=== PATIENT | male | born 1960 | race Caucasian/White ===

== ENCOUNTER 2017-06-12 09:49 | Day surgery (SDC) | payer OTHER ==
--- NOTE | 2017-06-11 13:45 | Pre-op HX & Phy Repo 2 SIG ---
DATE OF ADMISSION: 06/12/2017 PREENDOSCOPY HISTORY AND PHYSICAL REASON FOR EVALUATION: Scheduled for outpatient Larsen continent ileostomy pouch endoscopy on 06/12/2017. HISTORY OF PRESENT ILLNESS: The patient is a 56-year-old male in overall stable health with a malfunctioning Larsen continent ileostomy. The patient has past history of ulcerative colitis including total colectomy and J-pouch subsequently resected with creation of a Larsen continent ileostomy. All the operations will be listed at the end of this dictation. The patient has been having symptoms of bloating, abdominal pain, and increased reflux and whenever he bends over, he has shortness of breath. He had an evaluation where he lives in [place] revealing that his Larsen continent ileostomy pouch extends under the left diaphragm. Extensive pulmonary and cardiac workups have been negative. The patient also states that he must insert his catheter at least 7 to 8 inches to begin draining the pouch. He had been intubating only 3 to 4 times a day feeling that he had good evacuation, but still had bloating and pain. Occasionally, he had a large amount of explosive output through the catheter. He has more recently been intubating 6 times per day, but still has the symptoms of shortness of breath with bending over and increased esophageal reflux. The patient takes Cipro and Flagyl for pouchitis symptoms on an intermittent basis. He is scheduled to undergo pouch endoscopy and pouchogram x-ray. The patient was evaluated in February 2015 for the possibility of ventral incisional hernia and parastomal hernia. At that time, he underwent pouch endoscopy revealing that the distance from the stoma orifice to the tip of the nipple valve was 15 cm which in this patient would be expected to be 9 to 10 cm. Also at that time, he was found to have protuberance of the abdominal wall, but no evidence of incisional hernia. He underwent CT scan of the abdomen and pelvis with oral and IV contrast at that time revealing no evidence of incisional, ventral, or parastomal hernia, however, the Larsen pouch was found to be quite large extending transversely from the stoma in the right lower quadrant into the left lower quadrant and then into the left upper quadrant. The patient has otherwise been stable. PAST MEDICAL HISTORY AND MEDICATIONS: Xarelto 15 mg b.i.d. because of a hypercoagulable state with factor S abnormality, allopurinol. ALLERGIES TO MEDICATIONS: Penicillin. REVIEW OF SYSTEMS: The patient underwent stem cell injections into the pubic mound and parastomal area because of persistent parastomal pain. The patient has had no recent difficulty with deep vein thrombosis, last episode in 2014. The patient states he no longer takes allopurinol. PHYSICAL EXAMINATION: The patient is arriving from out of state and will be examined upon arrival and dictated separately. IMPRESSION: 1. Malfunctioning Larsen continent ileostomy with difficulty with intubation and evacuation. 2. Abdominal distention, pain, and shortness of breath when bending over and increased reflux likely due to over-distended Larsen pouch extending under the left diaphragm from the right lower quadrant. 3. Hypercoagulable state with factor S abnormality, on Xarelto. 4. History of ulcerative colitis. 5. Status post multiple abdominal operations. 1. Total colectomy with ileoanal J-pouch in August 2004 in [place]. 2. Resection of infarcted J-pouch and creation of Barbara ileostomy in August 2004 in [place]. 3. Larsen continent intestinal reservoir continent ileostomy in 2005. 4. Repair of ventral incisional hernia, parastomal hernia, and left inguinal hernia in October 2007. 5. Laparotomy with extensive lysis of adhesions and complex revision of Larsen continent ileostomy with enteroenterostomy and revision of the stoma in depth and repair of right inguinal hernia in 2009. PLAN: The patient will undergo pouch endoscopy which will not require any anesthesia or sedation. This will be followed by Gastrografin pouchogram with retrograde small-bowel series. We will then be able to make decisions. It has two steps to be taken to manage his symptoms. Paulo Spencer M.D. DR: DUNCAN JOB#: [id number] CC:
[~2017-06-12] VITALS: Ht 170.2 cm; Wt 86.6 kg
[~2017-06-12 09:49] MED LIST: ALLOPURINOL300 M1 ORAL; CELEBREX200 MG ORAL; FLAGYL500 MG ORAL; PRANDIN0.5 MG ORAL; VITAMIN B12 INJECT INJ; VITAMIN D5000 UNI1 PO; XARELTO15 MG ORAL
[2017-06-12 10:30] VITALS: BP 133/82
--- NOTE | 2017-06-12 10:37 | Pre-Procedure Note/Attestation ---
Pre-Procedure Note/Attestation Complete Prior to Procedure Planned Procedure: not applicable Procedure Narrative: Larsen continent ileostomy pouch endoscopy Indications for Procedure Pre-Operative Diagnosis: malfunctioning Larsen continent ileostomy Attestation I attest that I discussed the nature of the procedure; its benefits; risks and complications; and alternatives (and the risks and benefits of such alternatives ), prior to the procedure, with the patient (or the patient's legal videotape sales representative). I attest that, if there was a reasonable possibility of needing a blood transfusion, the patient (or the patient's legal videotape sales representative) was given the [facility] standardized written summary, pursuant to the [place] Blood Safety Act ([place] Health and Safety Code # 1645, as amended). I attest that I re-evaluated the patient just prior to the surgery and that there has been no change in the patient's H&P, except as documented below: none ANURADHA SPIVEY Jun 12, 2017 10:37
--- NOTE | 2017-06-12 11:15 | Brief Operative Note ---
Immediate Post Operative Note Operative Note Pre-op Diagnosis: malfunctioning Larsen continent ileostomy Procedure: Larsen pouch endoscopy Post-op Diagnosis: elongated, redundant access segment Post-op Diagnosis: same as pre-op Findings: consistent w/pre-op dx studies Surgeon: renetta Anesthesia: other - none Specimen: none Complications: none Condition: stable Fluids: none Estimated Blood Loss: none Drains: other - 28 olivera to Larsen pouch for pouchogram XRay Implant(s) used?: ANURADHA Garibay Jun 12, 2017 11:15
[2017-06-12 11:20] VITALS: BP 131/82
[2017-06-12 13:00] VITALS: BP 137/84
--- NOTE | 2017-06-12 17:00 | Procedure Note ---
DATE OF PROCEDURE: 05/15/2017 ENDOSCOPY PROCEDURE REPORT ENDOSCOPIST: Paulo Spencer M.D. ANESTHESIA: None. SEDATION: None. TYPE OF ENDOSCOPY: Larsen continent ileostomy pouch endoscopy. PRE-ENDOSCOPY DIAGNOSES: 1. Malfunctioning Larsen continent ileostomy with difficulty with intubation and evacuation. 2. Abdominal distention, pain and shortness of breath and with increased esophageal reflux when bending over likely due to over distended Larsen pouch extending under the left diaphragm from the right lower quadrant. 3. Hypercoagulable state with factor S abnormality, on Xarelto. 4. History of ulcerative colitis. 5. STATUS POST MULTIPLE ABDOMINAL OPERATIONS: 5.1. Total colectomy with ileoanal J-pouch in August 2004 in [place]. 5.2. Resection of infarcted J-pouch and creation of Barbara ileostomy in August 2004 in [place]. 5.3. Larsen continent ileostomy in 2005. 5.4. Repair of ventral incisional hernia, parastomal hernia, and left inguinal hernia in October 2007. 5.5. Laparotomy with extensive lysis of adhesions and complex revision of Larsen continent ileostomy with enteroenterostomy and revision of the stoma in depth and repair of right inguinal hernia in 2009. POST-ENDOSCOPY DIAGNOSES: 1. Malfunctioning Larsen continent ileostomy with difficulty with intubation and evacuation. 2. Abdominal distention, pain and shortness of breath and with increased esophageal reflux when bending over likely due to over distended Larsen pouch extending under the left diaphragm from the right lower quadrant. 3. Hypercoagulable state with factor S abnormality, on Xarelto. 4. Ulcerative colitis. 5. STATUS POST MULTIPLE ABDOMINAL OPERATIONS: 5.1. Total colectomy with ileoanal J-pouch in August 2004 in [place]. 5.2. Resection of infarcted J-pouch and creation of Barbara ileostomy in August 2004 in [place]. 5.3. Larsen continent ileostomy in 2005. 5.4. Repair of ventral incisional hernia, parastomal hernia and left inguinal hernia in October 2007. 5.5. Laparotomy with extensive lysis of adhesions and complex revision of Larsen continent ileostomy with enteroenterostomy and revision of the stoma in depth and repair of right inguinal hernia in 2009. ENDOSCOPY PERFORMED: Larsen continent ileostomy pouch endoscopy. FINDINGS: The distance from the stoma orifice to the tip of the nipple valve was 15 cm, which in this patient should be 7 to 8 cm. The pouch mucosa is completely normal and a retroflexed view revealed a circumferentially well-formed nipple valve. Withdrawal views confirmed the above findings. Initially before the endoscopy, I had difficulty inserting a 28-Niuean Avalos catheter into the pouch to irrigate it clear, but a 26-Niuean Avalos went readily into the pouch. Now, after removing the endoscope, the 28-Niuean Avalos catheter went readily, but needed to go in 25 cm to begin draining. It was secured in place with tape and connected to gravity drainage bag and gauze placed over the stoma. The patient will undergo a Gastrografin pouchogram x-ray following this endoscopy. The patient tolerated the endoscopy well. Paulo Spencer M.D. DR: GERARDO JOB#: [id number] CC:
--- NOTE | 2017-06-13 09:06 | Diagnostic Imaging Report ---
Indication: Abdominal pain, abnormal continent ileostomy drainage Technique: Via pre-existing access catheter, contrast was instilled into continent ileostomy under fluoroscopic supervision. Spot and overhead films were obtained. Total fluoroscopy time 3.9 minutes. Total dose area product 362 dGycm2 Total number of static exposures 31 Comparison: Reference made to CT scan 02/22/2015 Findings: Contrast initially fills a continent ileostomy reservoir in the right mid abdomen. Contrast subsequently refluxes into the distal ileum, and then fills a dilated segment of bowel in the left upper quadrant. From this, contrast refluxes rightward across the midline into more proximal ileal or jejunal loops. The loops into which this refluxes are mildly dilated Postdrainage images demonstrate near complete evacuation of the right lower quadrant ileostomy reservoir. Delayed follow-up images demonstrate continued filling of the ileostomy reservoir, presumably from the contrast in the left upper quadrant Anatomy is similar to that demonstrated on 02/22/2015 CT scan. Impression: Right lower quadrant ileostomy reservoir, as described Left upper quadrant dilated small bowel. This probably represents focal dilatation due to an enteroenterostomy, as surgical shai are seen surrounding this on prior CT. This is connected to the pouch by a short intervening segment of small bowel Images reviewed in person with Dr. Spencer
== END 2017-06-12 13:20 | disposition home or self-care (01) ==
LOC: GAS 09:49
DX: K94.13 Enterostomy malfunction (principal); R14.0 Abdominal distension (gaseous); K21.9 Gastro-esophageal reflux disease without esophagitis; Z79.01 Long term (current) use of anticoagulants; K51.90 Ulcerative colitis, unspecified, without complications; Z90.49 Acquired absence of other specified parts of digestive tract; Z88.0 Allergy status to penicillin
CPT/HCPCS: 44380; 74270; 82962; Q9963

== ENCOUNTER 2017-07-03 09:33 | Inpatient (IN) | payer OTHER ==
--- NOTE | 2017-07-02 16:30 | Pre-op HX & Phy Repo 2 SIG ---
DATE OF ADMISSION: 07/04/2017 HISTORY OF PRESENT ILLNESS: The patient is a 56-year-old male, in overall stable health with a malfunctioning Larsen continent ileostomy, with difficulty with intubation and evacuation of his pouch and with a partially obstructed proximal small bowel loop causing shortness of breath and reflux when bending over. The patient has a past history of ulcerative colitis and in the past has undergone total colectomy with creation of a J-pouch in followed by immediate resection of the J-pouch due to infarction with creation of a Barbara ileostomy, all in 2004. In 2005, he underwent conversion of his malfunctioning conventional ileostomy to a Larsen continent ileostomy. In 2007, he underwent repair of ventral incisional hernia, parastomal hernia, and left inguinal hernia. In 2009, he underwent laparotomy with extensive lysis of adhesions and complex revision of Larsen continent ileostomy valve and stoma in depth and enteroenterostomy, as well as repair of right inguinal hernia. The patient has been having progressive symptoms of bloating abdominal pain, shortness of breath, and reflux whenever he bends over and evaluations seemed to indicate that his continent ileostomy pouch was extremely dilated and extending under the left diaphragm. The patient was evaluated here at [facility] on 06/12/2017 and underwent pouch endoscopy. This revealed that the distance from the stoma orifice to the tip of the nipple valve was 15 cm, which in this patient should be 7 to 8 cm. The pouch mucosa was completely normal and there was a very well-formed nipple valve. On that same day following the endoscopy, the patient underwent a Gastrografin retrograde continent ileostomy pouchogram. This revealed the continent ileostomy in the right and mid lower abdomen with reflux into fairly normal distal ilium. There was further reflux into a very dilated segment of bowel in the left upper quadrant, with further reflux retrograde into more proximal ileal and jejunal loops. This left upper quadrant dilated small-bowel loop represents focal dilatation and is creating the patient's symptoms. The patient scheduled to undergo laparotomy with resection of this abnormal small bowel loop or correction of whatever fixed partial obstruction there is, as well as revision of his Larsen continent ileostomy pouch and stoma to relieve his progressive difficulty with intubation of his pouch. PAST MEDICAL HISTORY: MEDICATIONS: Xarelto 15 mg b.i.d. because of a hypercoagulable state with factor S abnormality. He was advised by his physician that he could stop this 3 days before surgery and then be treated with heparin subcutaneous until resuming oral intake. ALLERGIES TO MEDICATIONS: Penicillin. REVIEW OF SYSTEMS: Inferior vena cava filter for pulmonary emboli in 2003. The patient has had no recent difficulty with deep vein thrombosis. His last episode in 2014. The patient has undergone stem cell injections into the pubic mound and parastomal area because of persistent parastomal pain with some improvement. PHYSICAL EXAMINATION: GENERAL: The patient is well developed and well nourished. [place] is [place] and will be examined upon arrival when examined. On 06/12/2017, exam was as follows. HEENT: Within normal limits. LUNGS: Clear. HEART: Regular rhythm. BREASTS: Without masses. ABDOMEN: soft with a long midline incision scar and multiple other scars. The stoma of the Larsen pouch is low in the right lower quadrant. There is no evidence of abdominal wall hernia. RECTAL: Status post proctectomy. GENITALIA: Within normal limits. EXTREMITIES: Without edema. NEUROLOGIC: Physiologic. IMPRESSION: 1. Malfunctioning Larsen continent ileostomy with difficulty with intubation and evacuation, 2. Chronic progressive partially obstructed small bowel loop in the left upper quadrant causing shortness of breath and reflux with negative cardiopulmonary and gastrointestinal workup. 3. Hypercoagulable state with factor S abnormality, on Xarelto. 4. History of ulcerative colitis. 5. Status post multiple abdominal operations. 5.1. Total colectomy with ileoanal J-pouch in August 2004 in [place]. 5.2. Resection of infarcted J-pouch and creation of Barbara ileostomy in August 2004 in [place]. 5.3. Larsen continent ileostomy in 2005. 5.4. Repair of ventral incisional hernia, parastomal hernia, and left inguinal hernia in October 2007. 5.5. Laparotomy with extensive lysis of adhesions and complex revision of Larsen continent ileostomy with enteroenterostomy and revision of the stoma in depth and revision of the valve with repair of right inguinal hernia in 2009. PLAN: The patient will be admitted and undergo insertion of a dual lumen PICC line, insertion of an indwelling catheter to his Larsen continent ileostomy pouch for continuous drainage and decompression. He will have a bowel prep with concomitant intravenous hydration and will receive subcutaneous heparin and preoperative intravenous antibiotics. I had a full discussion with the patient regarding the nature of his condition, the nature of the planned surgery, indications, alternatives, options, and risks including bleeding, infection, injury to adjacent structures or organs, recurrent difficulties with his pouch or stoma or function of the pouch or stoma, recurrent adhesions leading to potential bowel obstruction, deep vein thrombosis despite prophylaxis, anesthetic reactions, etc. All questions have been answered. He understands and agrees to proceed. Paulo Spencer M.D. DR: ADRIANE JOB#: [id number] CC: INEZ
[~2017-07-03] VITALS: Ht 170.2 cm; Wt 87.5 kg
[2017-07-03 10:00] VITALS: BP 132/81
--- NOTE | 2017-07-03 10:01 | General Progress Note ---
Progress Note Progress Note H&P dictated. No change in exam from 06/12/17 when patient underwent Larsen pouch endoscopy and pouchogram XRay. Full discussion again regarding the surgery including risks; all questions answered; he understands and agrees to proceed. Plan: Dual lumen PIC line Continuous drainage of Larsen pouch continent ileostomy Bowel prep + IV antibiotics Heparin SQ ANURADHA SPIVEY Jul 03, 2017 10:01
[2017-07-03] MEDS ORDERED: Zolpidem 5mg tab ORAL PRN (10:15)
--- NOTE | 2017-07-03 10:50 | Anethesia Preoperative Eval ---
Anesthesia Pre-op PMH/ROS General Date of Evaluation: Jul 03, 2017 Time of Evaluation: 10:43 Anesthesiologist: Jeremi ASA Score: ASA 2 Mallampati Score Class I : Soft palate, uvula, fauces, pillars visible Class II: Soft palate, uvula, fauces visible Class III: Soft palate, base of uvula visible Class IV: Only hard plate visible Mallampati Classification: Class II Surgeon: Johanna Diagnosis: Malfunctioning continent pouch Surgical Procedure: Exploratory laparotomy revision of continent pouch possible bowel resection Anesthesia History: none Family History: no anesthesia problems Allergies: Coded Allergies: PENICILLIN G (Verified Allergy, Mild, 09/07/09) Medications: see eMAR Past Medical History Cardiovascular: Denies: HTN, CAD, MD, valve dz, arrhythmia, other Pulmonary: Denies: asthma, COPD, ANDREW, other Gastrointestinal/Genitourinary: Reports: GERD, other - h/o UC s/p total colectomy; Denies: CRI, ESRD Neurologic/Psychiatric: Reports: depression/anxiety; Denies: dementia, CVA, TIA, other Endocrine: Denies: DM, hypothyroidism, steroids, other HEENT: Denies: cataract (L), cataract (R), glaucoma, [place] (L[place] (R), other Hematology/Immune: Reports: anemia - mild, DVT - h/o DVT and PE IVC filter in place, anticoagulated; Denies: bleeding disorder, other Musculoskeletal/Integumentary: Denies: OA, RA, DJD, DDD, edema, other PMH Narrative: as above PSxH Narrative: Multiple abdominal Sxs for creation and maintenance of continent pouch, hernia repair, IVC filter placement Anesthesia Pre-op Phys. Exam Physician Exam Constitutional: NAD Neurologic: CN 2-12 intact Cardiovascular: no M/R/G Respiratory: CTA Gastrointestinal: S/NT/ND Airway Exam Mallampati Score: Class II MO: full Neck: flexible ROM: full Teeth: intact Dentures: no upper, no lower Anesthesia Pre-op A/P Labs see chart Risk Assessment & Plan Assessment: ASA2 Plan: GA with ETT Pre-Antibiotics Drug: as scheduled JASON STYLES M.D. Jul 03, 2017 10:50
[2017-07-03 11:00] LABS: BASOPHILS % (AUTO) 1.1 % (0.0-2.0); EOSINOPHILS % (AUTO) 4.2 % (0.0-3.0); HEMATOCRIT 39.2 % (42.0-52.0); HEMOGLOBIN 12.5 G/DL (14.2-18.0); LYMPHOCYTES % (AUTO) 20.5 % (20.0-45.0); MEAN CORPUSCULAR VOLUME 77 FL (80-99); MONOCYTES % (AUTO) 10.4 % (1.0-10.0); NEUTROPHILS % (AUTO) 63.8 % (45.0-75.0); PLATELET COUNT 222 K/UL (150-450); RED CELL DISTRIBUTION WIDTH 15.4 % (11.6-14.8); WHITE BLOOD COUNT 4.4 K/UL (4.8-10.8)
[2017-07-03 11:09] LABS: ANION GAP 9 mmol/L (5-15); BLOOD UREA NITROGEN 17 mg/dL (7-18); CALCIUM 9.1 MG/DL (8.5-10.1); CARBON DIOXIDE 28 MMOL/L (21-32); CHLORIDE 102 MMOL/L (98-107); CREATININE 1.2 MG/DL (0.55-1.30); SODIUM 138 MMOL/L (136-145)
[2017-07-03 11:14] LABS: ALANINE AMINOTRANSFERASE 36 U/L (12-78); ALBUMIN 3.6 G/DL (3.4-5.0); ALBUMIN/GLOBULIN RATIO 0.9 (1.0-2.7); ALKALINE PHOSPHATASE 97 U/L (46-116); ASPARTATE AMINO TRANSFERASE 21 U/L (15-37); BILIRUBIN,TOTAL 0.7 MG/DL (0.2-1.0)
[2017-07-03] MEDS ORDERED: Heparin 2000 units/Ns 1000ml INJ SCH (11:30)
[2017-07-03] MEDS ORDERED: Lidocaine 1% Plain 30 ml INJ SCH (11:30)
[2017-07-03 11:39] LABS: FERRITIN 8 NG/ML (8-388)
[2017-07-03 11:47] LABS: % IRON SATURATION 10 % (15-50); IRON 42 ug/dL (50-175); TOTAL IRON BINDING CAPACITY 421 ug/dL (250-450)
[2017-07-03] MEDS: Neomycin Sulfate 500mg Tab ORAL SCH ×3 (11:52→19:59)
[2017-07-03 12:00] VITALS: BP 131/82
[2017-07-03 14:25] LABS: BILIRUBIN, URINE NEGATIVE (NEGATIVE); COLOR,URINE PALE YELLOW; GLUCOSE, URINE (UA) 1+ (NEGATIVE); KETONES,URINE NEGATIVE (NEGATIVE); LEUKOCYTE ESTERASE ,URINE 2+ (NEGATIVE); NITRITE,URINE NEGATIVE (NEGATIVE); PH,URINE 7 (4.5-8.0); PROTEIN,URINE NEGATIVE (NEGATIVE); UROBILINOGEN,URINE NORMAL MG/DL (0.0-1.0)
[2017-07-03 14:31] LABS: APPEARANCE,URINE SLIGHTLY CLOUDY
--- NOTE | 2017-07-03 15:57 | Diagnostic Imaging Report ---
Indication: Cough Technique: One view of the chest Comparison: none Findings: Suboptimal inspiration with crowding of the bronchovascular markings. Lungs and pleural spaces are clear otherwise. There is a left arm PICC. Impression: No acute process
[2017-07-03 16:00] VITALS: BP 121/81
--- NOTE | 2017-07-03 16:00 | Diagnostic Imaging Report ---
Indications: Needs long-term IV access Technique: Ultrasound confirms patent compressible left basilic vein. Total sterile technique, including sterile probe cover and sterile gel, hat, mask,, sterile gown, large sterile drape, and preparation with 2% chlorhexidine utilized. Local anesthesia with 1% lidocaine. Under real-time ultrasound guidance, puncture basilic vein using 21-gauge needle, documented and archived, passage 0.018 guidewire under direct fluoroscopy, which was used to determine appropriate catheter length, exchange for 5 Chinese peel-away sheath. 5 Chinese Bard dual-lumen power PICC cut to 44 cm. It was inserted through the peel-away sheath. Peel-away sheath and guidewire removed. Catheter fixed to the skin. Both catheter ports aspirated and flushed. Patient tolerated procedure well, without immediate complication. Digital radiograph documents satisfactory catheter tip position, at the cavoatrial junction. Total fluoroscopy time 0.3 minutes. Total dose area product 7.1 dGycm2 Impression: Successful placement of left arm PICC under sonographic and fluoroscopic guidance, as described above.
[2017-07-03] MEDS ORDERED: Heparin 5000 units/ml inj SUBQ ONE (17:30)
[2017-07-03] MEDS ORDERED: D5 1/2NS w/KCl 20mEq 1,000 ML IV SCH (18:00)
[2017-07-03] MEDS ORDERED: Repaglinide 0.5mg Tab ORAL SCH (19:15)
[2017-07-03] MEDS: Repaglinide 1mg tab ORAL SCH (19:41)
[2017-07-03] MEDS: Dyna-Hex 2% Top Sol 2oz TOPIC SCH (19:59)
[2017-07-03] MEDS: 1/2NS w/KCl 20mEq 1000ml 1,000 ML IV SCH (19:59)
[2017-07-03 20:00] VITALS: BP 115/73
[2017-07-04] VITALS (16 sets, daily range): BP systolic 98–153; BP diastolic 61–98
[2017-07-04] MEDS: 1/2NS w/KCl 20mEq 1000ml 1,000 ML IV SCH ×4 (05:26→23:18)
[2017-07-04] MEDS ORDERED: Heparin 5000 units/ml inj SUBQ ONE (05:30)
[2017-07-04] MEDS ORDERED: Bacitracin 50000 Units Vial ONE (06:59)
[2017-07-04] MEDS ORDERED: NeoSporin Gu Irrig 1ml Amp IRRIG ONE (06:59)
[2017-07-04] MEDS ORDERED: Morphine Sulfate 10mg/ml Inj ONE (07:00)
[2017-07-04] MEDS ORDERED: Ketorolac 30mg Inj ONE ×2 (07:00→08:47)
[2017-07-04] MEDS ORDERED: Zemuron 50mg/5ml Inj IV ONE ×2 (07:00→08:43)
[2017-07-04] MEDS ORDERED: LR 1000ml ONE (07:00)
[2017-07-04] MEDS ORDERED: Sterile Water Irrig 1000ml IRRIG ONE (07:00)
[2017-07-04] MEDS ORDERED: fentaNYL 100 mcg/2 mL IV ONE (07:00)
[2017-07-04] MEDS ORDERED: NS Irrig 2000ml IRRIG ONE (07:00)
[2017-07-04] MEDS ORDERED: NS Irrig 1000ml ONE ×2 (07:00→09:50)
[2017-07-04] MEDS ORDERED: Propofol 200mg/20ml IV ONE (07:00)
[2017-07-04] MEDS ORDERED: Midazolam 2mg/2ml Inj ONE (07:00)
[2017-07-04] MEDS ORDERED: Succinylcholine 20mg/ml 10ml vial ONE (07:00)
--- NOTE | 2017-07-04 07:22 | Pre-Procedure Note/Attestation ---
Pre-Procedure Note/Attestation Complete Prior to Procedure Planned Procedure: not applicable Procedure Narrative: revision Larsen continent ileostomy stoma and access segment, small bowel resection Indications for Procedure Pre-Operative Diagnosis: malfunctioning Larsen continent ileostomy; partially obstructed small bowel segment Attestation I attest that I discussed the nature of the procedure; its benefits; risks and complications; and alternatives (and the risks and benefits of such alternatives ), prior to the procedure, with the patient (or the patient's legal sales representative printing paper). I attest that, if there was a reasonable possibility of needing a blood transfusion, the patient (or the patient's legal sales representative printing paper) was given the [place] [facility] standardized written summary, pursuant to the [place] Blood Safety Act ([place] Health and Safety Code # 1645, as amended). I attest that I re-evaluated the patient just prior to the surgery and that there has been no change in the patient's H&P, except as documented below:none ANURADHA SPIVEY Jul 04, 2017 07:22
[2017-07-04] MEDS ORDERED: Glycopyrrolate 0.2mg/ml 1ml Vial ONE ×2 (08:34→08:44)
[2017-07-04] MEDS ORDERED: LR 1000ml 1,000 ML IVLG SCH (08:59)
[2017-07-04] MEDS: Repaglinide 1mg tab ORAL SCH (09:00)
[2017-07-04] MEDS ORDERED: Midazolam 2mg/2ml Inj IVP PRN (09:00)
[2017-07-04] MEDS ORDERED: Meperidine 50mg/ml Inj(FOR RIGORS ONLY) IV PRN (09:00)
[2017-07-04] MEDS ORDERED: Hydromorphone 0.5mg/0.5ml inj IVP PRN (09:00)
[2017-07-04] MEDS ORDERED: DiphenhydrAMINE 50mg/ml Inj IVP PRN (09:00)
[2017-07-04] MEDS ORDERED: Tubing IV Secondary IV ONE (09:50)
[2017-07-04] MEDS ORDERED: NS 275ml ONE (09:50)
--- NOTE | 2017-07-04 12:46 | Brief Operative Note ---
Immediate Post Operative Note Operative Note Pre-op Diagnosis: malfunctioning Larsen continent ileostomy; partially obstructed small bowel segment Procedure: Enteroenterostomy, gastrostomy, extensive lysis of adhesions Post-op Diagnosis: same Post-op Diagnosis: same as pre-op Findings: consistent w/pre-op dx studies Surgeon: renetta Coin Counter And Wrapper: kermit Anesthesiologist: milana Anesthesia: general Specimen: none Complications: none Condition: stable Fluids: see anesthesia record Estimated Blood Loss: volume - 100cc Drains: other - 28 Fr olivera to Larsen pouch, 18 Fr gastrostomy Implant(s) used?: ANURADHA Garibay Jul 04, 2017 12:46
--- NOTE | 2017-07-04 12:58 | Immediate Post-Op Evaluation ---
Immediate Post-Op Evalulation Immediate Post-Op Evalulation Procedure: Exploratory laparotomy, lysis of adhesions small bowel decompression , gastr Date of Evaluation: Jul 04, 2017 Time of Evaluation: 12:56 IV Fluids: 1500 Blood Products: Albumin 250 Estimated Blood Loss: 100 Urinary Output: 150 Blood Pressure Systolic: 128 Blood Pressure Diastolic: 68 Pulse Rate: 75 Respiratory Rate: 20 O2 Sat by Pulse Oximetry: 98 Temperature (Fahrenheit): 97.6 Pain Score (1-10): 2 Nausea: No Vomiting: No Complications NONE Patient Status: awake, patent, extubated, none Hydration Status: adequate JASON STYLES M.D. Jul 04, 2017 12:58
[2017-07-04] MEDS ORDERED: Morphine Sulfate 2mg/ml Inj IVP PRN (13:00)
[2017-07-04] MEDS ORDERED: Rate Change PCA 1 Each MISC PRN (13:00)
[2017-07-04] MEDS ORDERED: PCA Education Pamphlet MISC ONE (13:00)
[2017-07-04] MEDS ORDERED: LORazepam 1mg tab SL PRN (13:00)
[2017-07-04] MEDS ORDERED: Acetaminophen 650mg/20.3ml GT PRN (13:00)
[2017-07-04] MEDS ORDERED: Morphine Sulfate 4mg/ml Inj SUBQ PRN (13:00)
[2017-07-04] MEDS ORDERED: Naloxone 0.4mg/ml Inj IVP PRN (13:00)
[2017-07-04] MEDS: PCA Morphine 1mg/ml 30 ML IV PRN ×2 (13:06→21:54)
[2017-07-04] MEDS ORDERED: Morphine Sulfate 4mg/ml Inj IVP PRN (13:15)
[2017-07-04] MEDS ORDERED: Ketorolac 30mg Inj IV SCH (16:10)
--- NOTE | 2017-07-04 16:10 | General Progress Note ---
Progress Note Progress Note AVSS. c/o pain despite MS YARN SPOOLER and nausea despite Zofran IV Abdomen soft, dressing try, gastrostomy and Larsen pouch catheters patent, urine clear Imp. Stable with pain and nausea Plan; Add Compazine IV and Toradol IV Resume SQ heparin in AM (extensive lysis of adhesions with diffuse raw surface oozing) ANURADHA SPIVEY Jul 04, 2017 16:10
[2017-07-04] MEDS ORDERED: Ketorolac 30mg Inj IV PRN (16:15)
--- NOTE | 2017-07-04 17:07 | Cardiology Report ---
APPROVED REPORT EKG Measurement Heart [id number] Normal sinus rhythm Normal ECG
--- NOTE | 2017-07-04 18:30 | Operative Note - Dictated ---
DATE OF OPERATION: 07/04/2017 SURGEON: Paulo Spencer M.D. STEEL SASH ERECTOR SURGEON: Cedrick Rosenbaum M.D. ANESTHESIOLOGIST: Chris Blood M.D. TYPE OF ANESTHESIA: General endotracheal. PREOPERATIVE DIAGNOSES: 1. Malfunctioning Larsen continent ileostomy with difficulty with intubation and evacuation. 2. Chronically partially obstructed small bowel loop in the left upper quadrant 3. History of ulcerative colitis. 4. Status post multiple abdominal operations. 4.1. Total colectomy with ileoanal J-pouch in August 2004 in [place]. 4.2. Resection of infarcted J-pouch and creation of Barbara ileostomy in August 2004 in [place]. 4.3. Larsen continent ileostomy in 2005. 4.4. Repair of ventral incisional hernia, parastomal hernia, and left inguinal hernia in October 2007. 4.5. Laparotomy with extensive lysis of adhesions and complex revision of Larsen continent ileostomy with enteroenterostomy and revision of stoma in depth and revision of the valve, and repair of right inguinal hernia in 2009. POSTOPERATIVE DIAGNOSES: 1. Malfunctioning Larsen continent ileostomy with difficulty with intubation and evacuation. 2. Chronically partially obstructed small bowel loop in the left upper quadrant 3. History of ulcerative colitis. 4. Status post multiple abdominal operations. 4.1. Total colectomy with ileoanal J-pouch in August 2004 in [place]. 4.2. Resection of infarcted J-pouch and creation of Barbara ileostomy in August 2004 in [place]. 4.3. Larsen continent ileostomy in 2005. 4.4. Repair of ventral incisional hernia, parastomal hernia, and left inguinal hernia in October 2007. 4.5. Laparotomy with extensive lysis of adhesions and complex revision of Larsen continent ileostomy with enteroenterostomy and revision of stoma in depth and revision of the valve, and repair of right inguinal hernia in 2009. OPERATION PERFORMED: Laparotomy with extensive 2-hour-plus lysis of adhesions and enteroenterostomy. DESCRIPTION OF PROCEDURE: The patient was taken to the operating room and under general endotracheal anesthesia with sequential compression device stockings and Avalos catheter in place and having been given intravenous antibiotics and subcutaneous heparin, the patient was prepped and draped in the usual fashion with the stoma of the Larsen pouch low in the right lower quadrant initially sealed with Tegaderm. Previous midline incision was reopened from above the umbilicus to the pubis, but it had to be extended all the way to the xiphoid. There were severe diffuse adhesions in the central abdomen and the pelvis was essentially frozen. With a prolonged careful and tedious dissection, the stomach was taken down from prior gastrostomy site, but a nasogastric tube could not be passed nor could an orogastric tube be passed into the stomach. The proximal small bowel loops of jejunum and proximal ileum were mobilized from the upper abdomen, identifying the liver and gallbladder which were normal. The ligament of Treitz was identified and normal-caliber small bowel loops were mobilized from the left upper quadrant across to the right upper quadrant and then into a central extremely dilated loop of small bowel. This was followed and traced anatomically to a decompressed loop coming out of the chronically partially obstructed loop. Beyond that, there was no evidence of dilated bowel, but further dissection in the frozen pelvis would severely have jeopardized this patient's Larsen continent ileostomy. As a catheter can be placed into his pouch and much of his clinical symptoms are due to this dilated loop, I felt it advisable to avoid further dissection into the pelvis which would have high risk of irreparable injury with resection of his Larsen pouch and diverting to conventional ileostomy. Once the small bowel dilated chronically partially obstructed loop was fully dissected, I placed the proximal aspect of it side by side with the distal loop coming directly out of it. It was most likely that what was dilated was a prior enteroenterostomy that had become densely adherent with very dense adhesions. Placing the dilated loop with decompressed distal loop [id number], a two-fingerbreadth hand-sewn anastomosis was created with an outer layer of interrupted 3-0 silk and then the enterotomy was made [id number] with full-thickness 2-0 chromic locking suture starting posteriorly and completed anteriorly. Then an outer layer of 3-0 silk imbricating sutures was placed. Once the enterotomy into the dilated loop had been made, a Ukmar suction was placed and it fully decompressed the loop which remained very thick-walled. I preferred to decompress it with this enteroenterostomy rather than to resect it removing this 1 foot of small bowel. The entire abdomen was irrigated and hemostasis carefully achieved with cautery and silk ties as appropriate. Search was made for retained sponges and none were found. The bladder and ureters had been avoided during the procedure. I was able to manipulate a 28-Haitian Avalos catheter through the stoma directly into the pouch confirmed by irrigation without any difficulty. This was left in place and sutured to the skin with two sutures of 2-0 silk and flushed and connected to a gravity drainage bag. Throughout the procedure, the abdominal wall was protected with antibiotic-soaked lap sponges and with frequent glove changes. With all the dissection, I felt that decompression was mandatory and therefore I recreated a gastrostomy. The stomach would not come up to the anterior abdominal wall any longer. I brought an 18-Haitian Avalos catheter through a stab incision in the left upper quadrant and brought it through the omental remnant and then into the stomach anterior wall, body, greater curve between two concentric 2-0 chromic pursestring sutures with the balloon inflated and positioned in the fundus. The omentum was then sutured to the stomach around the gastrostomy site with interrupted 2-0 silk sutures. The catheter was sutured to the skin with a 2-0 silk suture and then it was flushed and connected to a gravity drainage bag. After ascertaining that hemostasis was secure, this very long incision was closed in one layer with continuous #1 looped PDS. Additional antibiotic irrigation was used and the skin closed with shai. Dry sterile dressings were applied. Final sponge and needle counts were correct. The patient tolerated the procedure well and left the operating room in stable condition. Paulo Spencer M.D. DR: Timbo JOB#: [id number] CC: INEZ
[2017-07-04] MEDS: PCA shift volume MISC SCH (19:06)
[2017-07-04] MEDS: Dyna-Hex 2% Top Sol 2oz TOPIC SCH (20:05)
[2017-07-05 00:26] VITALS: BP 99/70
[2017-07-05 04:00] VITALS: BP 99/69
[2017-07-05 05:05] LABS: HEMATOCRIT 33.9 % (42.0-52.0); HEMOGLOBIN 10.9 G/DL (14.2-18.0); MEAN CORPUSCULAR VOLUME 77 FL (80-99); PLATELET COUNT 173 K/UL (150-450); RED CELL DISTRIBUTION WIDTH 15.3 % (11.6-14.8); WHITE BLOOD COUNT 7.7 K/UL (4.8-10.8)
[2017-07-05 05:27] LABS: ANION GAP 5 mmol/L (5-15); BLOOD UREA NITROGEN 16 mg/dL (7-18); CALCIUM 7.9 MG/DL (8.5-10.1); CARBON DIOXIDE 24 MMOL/L (21-32); CHLORIDE 105 MMOL/L (98-107); CREATININE 1.4 MG/DL (0.55-1.30); POTASSIUM 5.2 MMOL/L (3.5-5.1); SODIUM 134 MMOL/L (136-145)
[2017-07-05] MEDS: 1/2NS w/KCl 20mEq 1000ml 1,000 ML IV SCH (05:30)
[2017-07-05] MEDS: PCA shift volume MISC SCH ×2 (07:00→19:00)
[2017-07-05 08:00] VITALS: BP 104/71
[2017-07-05] MEDS ORDERED: Heparin 5000 units/ml inj SUBQ STA (08:32)
--- NOTE | 2017-07-05 08:32 | General Progress Note ---
Progress Note Progress Note AVSS Pain controlled with MS SUPERVISOR ELECTRIC [employer]OR TESTING and nausea controlled with Zofran and Compazine. Chest decreased expansion Cor - reg rhythm Abdomen mildly distended, soft, incision clean Urine 350cc/12 hours gastrostomy 180 clear BCIR ileo 5 serous WBC 7700 (4400 pre-op) Hgb 10.9 (12.5 pre-op) Na 134 K 5.2 Cr up 1.4 (was 1.2 ) glucose 151 Iron 42 (50-175) B12 and folate - wnl Imp. Ileus Atelectasis Hyperglycemia (takes Prandin pre-admission) Plan: change IV to NS 150cc/hr accucheck q6h with insulin sensitive sliding scale npo continue Avalos Venofer daily Heparin 5000 units SQ q12 h until able to resume Xarelto mobilize f/u labs, I&O ANURADHA SPIVEY Jul 05, 2017 08:32
[2017-07-05] MEDS: PCA Morphine 1mg/ml 30 ML IV PRN (10:09)
[2017-07-05] MEDS: NovoLOG Insulin Flexpen SUBQ SCH ×3 (11:44→21:12)
[2017-07-05 12:00] VITALS: BP 107/72
--- NOTE | 2017-07-05 13:21 | 48 Hour Post Anesthesia Eval ---
Post Anesthesia Evaluation Procedure: Exploratory laparotomy, lysis of adhesions small bowel decompression , gastr Date of Evaluation: Jul 05, 2017 Time of Evaluation: 13:19 Blood Pressure Systolic: 104 0: 65 Pulse Rate: 72 Respiratory Rate: 20 Temperature (Fahrenheit): 97.6 O2 Sat by Pulse Oximetry: 98 Airway: patent Nausea: No Vomiting: No Pain Intensity: 3 Hydration Status: adequate Cardiopulmonary Status: stable Mental Status/LOC: patient returned to baseline Follow-up Care/Observations: n/a Post-Anesthesia Complications: none Follow-up care needed: N/A JASON STYLES M.D. Jul 05, 2017 13:21
[2017-07-05] MEDS: TransDerm Scop 1mg/72HR Patch TDERMAL SCH (14:41)
[2017-07-05 16:00] VITALS: BP 108/76
[2017-07-05 20:00] VITALS: BP 118/80
[2017-07-05] MEDS: Dyna-Hex 2% Top Sol 2oz TOPIC SCH (21:07)
[2017-07-05] MEDS: Iron Sucrose 100 MG in NS 110 ML IV SCH (21:08)
[2017-07-05] MEDS: Heparin 5000 units/ml inj SUBQ SCH (21:12)
[2017-07-06] VITALS: BP 122/71
[2017-07-06] MEDS: PCA Morphine 1mg/ml 30 ML IV PRN ×2 (00:11→12:34)
[2017-07-06 04:00] VITALS: BP 114/69
[2017-07-06 05:01] LABS: ANION GAP 7 mmol/L (5-15); BLOOD UREA NITROGEN 14 mg/dL (7-18); CALCIUM 7.9 MG/DL (8.5-10.1); CARBON DIOXIDE 21 MMOL/L (21-32); CHLORIDE 107 MMOL/L (98-107); CREATININE 1.1 MG/DL (0.55-1.30); POTASSIUM 4.4 MMOL/L (3.5-5.1); SODIUM 135 MMOL/L (136-145)
[2017-07-06] MEDS: NovoLOG Insulin Flexpen SUBQ SCH ×4 (06:12→21:33)
[2017-07-06 06:46] LABS: HEMATOCRIT 30.5 % (42.0-52.0); HEMOGLOBIN 9.6 G/DL (14.2-18.0); MEAN CORPUSCULAR VOLUME 78 FL (80-99); PLATELET COUNT 169 K/UL (150-450); RED BLOOD COUNT 3.93 M/UL (4.70-6.10); RED CELL DISTRIBUTION WIDTH 15.8 % (11.6-14.8); WHITE BLOOD COUNT 2.6 K/UL (4.8-10.8)
[2017-07-06] MEDS: PCA shift volume MISC SCH ×2 (07:11→19:00)
[2017-07-06 08:00] VITALS: BP 112/70
--- NOTE | 2017-07-06 08:15 | General Progress Note ---
Progress Note Progress Note AVSS Feeling better with less nausea and okay pain control. c/o tightness of both lower extremities - concerned re DVT. Ambulating with assistance Good IS effort - chest clear Abdomen mild soft distention, incision clean Urine 1150 Gastrostomy 150 BCIR ileo 20 WBC 2600 (low on admission) Hgb 9.6 Na 135 K4.1 BUN/Cr down 14/1.1 Imp. Ileus Leg tightness r/o DVT with prior history Neutropenia ? due to antibiotics? Plan; NPO STAT venous duplex ultrasound bilat lower extremities D/C Levaquin and Flagyl (no longer needed) continue Avalos until more mobile f/u labs in ANURADHA MELGAR Jul 06, 2017 08:15
[2017-07-06] MEDS: Heparin 5000 units/ml inj SUBQ SCH (08:21)
[2017-07-06] MEDS ORDERED: Rate Change PCA 1 Each MISC PRN (09:00)
[2017-07-06] MEDS ORDERED: Naloxone 0.4mg/ml Inj IVP PRN (09:00)
[2017-07-06] MEDS ORDERED: Morphine Sulfate 4mg/ml Inj SUBQ PRN (10:00)
[2017-07-06] MEDS ORDERED: NS 500ML ONE (10:16)
[2017-07-06] MEDS ORDERED: NS Irrig 1000ml ONE (10:16)
[2017-07-06] MEDS ORDERED: Tubing IV Secondary IV ONE (10:16)
[2017-07-06] MEDS ORDERED: Heparin 5000 units/ml inj IV ONE (11:15)
[2017-07-06] MEDS: Heparin 25,000u/D5W 500ml (VTE/AF) IV SCH (11:51)
[2017-07-06 12:00] VITALS: BP 115/70
[2017-07-06 16:00] VITALS: BP 118/72
[2017-07-06 20:00] VITALS: BP 132/93
[2017-07-06] MEDS: Iron Sucrose 100 MG in NS 110 ML IV SCH (21:34)
[2017-07-06] MEDS: Dyna-Hex 2% Top Sol 2oz TOPIC SCH (21:34)
[2017-07-07] VITALS: BP 122/80
[2017-07-07] MEDS: PCA Morphine 1mg/ml 30 ML IV PRN ×2 (00:29→13:26)
[2017-07-07] MEDS: Heparin 25,000u/D5W 500ml (VTE/AF) IV SCH ×3 (02:42→19:01)
[2017-07-07 04:00] VITALS: BP 123/73
[2017-07-07 04:42] LABS: HEMATOCRIT 28.9 % (42.0-52.0); HEMOGLOBIN 9.5 G/DL (14.2-18.0); MEAN CORPUSCULAR VOLUME 77 FL (80-99); PLATELET COUNT 187 K/UL (150-450); RED BLOOD COUNT 3.75 M/UL (4.70-6.10); RED CELL DISTRIBUTION WIDTH 16.3 % (11.6-14.8)
[2017-07-07 04:43] LABS: WHITE BLOOD COUNT 2.1 K/UL (4.8-10.8)
[2017-07-07 04:48] LABS: ANION GAP 9 mmol/L (5-15); BLOOD UREA NITROGEN 11 mg/dL (7-18); CALCIUM 7.9 MG/DL (8.5-10.1); CARBON DIOXIDE 24 MMOL/L (21-32); CHLORIDE 109 MMOL/L (98-107); POTASSIUM 3.8 MMOL/L (3.5-5.1); SODIUM 142 MMOL/L (136-145)
[2017-07-07] MEDS: NovoLOG Insulin Flexpen SUBQ SCH ×4 (06:01→21:00)
[2017-07-07] MEDS: PCA shift volume MISC SCH ×2 (07:22→19:08)
[2017-07-07 08:00] VITALS: BP 139/85
[2017-07-07] MEDS: LORazepam 1mg tab SL PRN (09:17)
--- NOTE | 2017-07-07 10:36 | General Progress Note ---
Progress Note Progress Note Surgery: Covering for Dr. Spencer doing well. found to have DVT on duplex. comfortable. no n/v/f/c. pain controlled. mainly uncomfortable around g tube site afebrile, HD stable, labs reviewed. BMP okay. leukopenia 2.1 today. h/h stable on heparin gtt. ptt reviewed. abd soft, incisional tenderness, incision clean and intact without signs of infection. Avalos output 1330, G tube output 240, ileo output 295. A/P: recovering -npo with IV fluids -okay off IV abx currently -heparin gtt per protocol -ambulate and out of bed -incentive spirometry -monitor g tube / ileo output -repeat AM labs. Cedrick Rosenbaum Jul 07, 2017 10:36
[2017-07-07 12:00] VITALS: BP 128/70
[2017-07-07] MEDS ORDERED: Heparin 5000 units/ml inj IV SCH (13:30)
[2017-07-07 16:00] VITALS: BP 134/75
[2017-07-07 20:00] VITALS: BP 143/79
[2017-07-07] MEDS: Iron Sucrose 100 MG in NS 110 ML IV SCH (21:13)
[2017-07-07] MEDS: Dyna-Hex 2% Top Sol 2oz TOPIC SCH (21:13)
[2017-07-08] VITALS: BP 137/83
[2017-07-08 04:00] VITALS: BP 118/78
[2017-07-08 05:16] LABS: HEMATOCRIT 29.9 % (42.0-52.0); HEMOGLOBIN 9.6 G/DL (14.2-18.0); MEAN CORPUSCULAR VOLUME 78 FL (80-99); PLATELET COUNT 219 K/UL (150-450); RED BLOOD COUNT 3.85 M/UL (4.70-6.10); RED CELL DISTRIBUTION WIDTH 16.8 % (11.6-14.8); WHITE BLOOD COUNT 2.8 K/UL (4.8-10.8)
[2017-07-08 05:40] LABS: ALANINE AMINOTRANSFERASE 17 U/L (12-78); ALBUMIN 2.2 G/DL (3.4-5.0); ALBUMIN/GLOBULIN RATIO 0.6 (1.0-2.7); ALKALINE PHOSPHATASE 55 U/L (46-116); ANION GAP 10 mmol/L (5-15); ASPARTATE AMINO TRANSFERASE 15 U/L (15-37); BILIRUBIN,TOTAL 0.8 MG/DL (0.2-1.0); BLOOD UREA NITROGEN 8 mg/dL (7-18); CALCIUM 7.9 MG/DL (8.5-10.1); CARBON DIOXIDE 23 MMOL/L (21-32); CHLORIDE 110 MMOL/L (98-107); CREATININE 0.8 MG/DL (0.55-1.30); POTASSIUM 3.6 MMOL/L (3.5-5.1); SODIUM 142 MMOL/L (136-145)
[2017-07-08] MEDS: NovoLOG Insulin Flexpen SUBQ SCH ×4 (06:24→21:00)
[2017-07-08] MEDS: PCA shift volume MISC SCH ×3 (07:17→19:21)
[2017-07-08] MEDS: PCA Morphine 1mg/ml 30 ML IV PRN ×2 (07:34→21:36)
[2017-07-08 08:00] VITALS: BP 125/70
[2017-07-08] MEDS ORDERED: Morphine Sulfate 4mg/ml Inj IVP PRN (09:00)
[2017-07-08] MEDS ORDERED: Rate Change PCA 1 Each MISC PRN (09:00)
[2017-07-08] MEDS: Heparin 25,000u/D5W 500ml (VTE/AF) IV SCH (09:59)
[2017-07-08] MEDS: LORazepam 1mg tab SL PRN (10:01)
--- NOTE | 2017-07-08 10:10 | General Progress Note ---
Progress Note Progress Note Surgery: Covering for Dr. Spencer no acute events. no n/v/f/c. pain controlled. mainly uncomfortable around g tube site. feels "keloid" in Left groin which he has had for some time was ambulatory yesterday but felt some cramping and has not been since. feels as if he can walk okay. has chronic knee fluid that gets drained intermittently by his PCP. afebrile, HD stable, labs reviewed. BMP okay. leukopenia 2.8 today. h/h stable on heparin gtt. ptt reviewed. abd soft, incisional tenderness, incision clean and intact without signs of infection. Olivera output 1000, G tube output 140, ileo output 240. A/P: recovering -npo with IV fluids -heparin gtt per protocol -ambulate and out of bed -d/c olivera once ambulatory today -incentive spirometry -monitor g tube / ileo output -repeat AM labs. -consider diet tomorrow -would not drain elective chronic knee/leg fluid while on anticoagulation Cedrick Rosenbaum Jul 08, 2017 10:10
[2017-07-08 12:00] VITALS: BP 135/78
[2017-07-08] MEDS: TransDerm Scop 1mg/72HR Patch TDERMAL SCH (13:39)
[2017-07-08] MEDS ORDERED: NS Irrig 1000ml ONE (14:30)
[2017-07-08] MEDS ORDERED: Tubing IV Secondary IV ONE (14:30)
[2017-07-08 20:00] VITALS: BP 136/74
[2017-07-08] MEDS: Dyna-Hex 2% Top Sol 2oz TOPIC SCH (20:25)
[2017-07-08] MEDS: Iron Sucrose 100 MG in NS 110 ML IV SCH (20:25)
[2017-07-09 00:16] VITALS: BP 137/78
[2017-07-09] MEDS: Heparin 25,000u/D5W 500ml (VTE/AF) IV SCH ×3 (01:21→15:51)
[2017-07-09 04:00] VITALS: BP 140/74
[2017-07-09 04:39] LABS: HEMATOCRIT 28.4 % (42.0-52.0); HEMOGLOBIN 9.5 G/DL (14.2-18.0); MEAN CORPUSCULAR VOLUME 76 FL (80-99); PLATELET COUNT 218 K/UL (150-450); RED BLOOD COUNT 3.72 M/UL (4.70-6.10); RED CELL DISTRIBUTION WIDTH 16.5 % (11.6-14.8); WHITE BLOOD COUNT 2.9 K/UL (4.8-10.8)
[2017-07-09 04:48] LABS: ANION GAP 9 mmol/L (5-15); BLOOD UREA NITROGEN 9 mg/dL (7-18); CALCIUM 7.7 MG/DL (8.5-10.1); CARBON DIOXIDE 23 MMOL/L (21-32); CHLORIDE 110 MMOL/L (98-107); CREATININE 0.8 MG/DL (0.55-1.30); POTASSIUM 3.2 MMOL/L (3.5-5.1); SODIUM 142 MMOL/L (136-145)
[2017-07-09] MEDS ORDERED: Heparin 5000 units/ml inj IV ONE (05:15)
[2017-07-09] MEDS: NovoLOG Insulin Flexpen SUBQ SCH ×4 (05:48→20:19)
[2017-07-09] MEDS: PCA shift volume MISC SCH ×2 (07:06→19:05)
[2017-07-09 08:04] VITALS: BP 139/84
[2017-07-09] MEDS ORDERED: Naloxone 0.4mg/ml Inj IV PRN (08:15)
[2017-07-09] MEDS ORDERED: NS w/KCl 40mEq 1,000 ML IV SCH (10:30)
[2017-07-09 12:00] VITALS: BP 142/80
[2017-07-09] MEDS: PCA Morphine 1mg/ml 30 ML IV PRN (12:11)
[2017-07-09] MEDS ORDERED: Rate Change PCA 1 Each MISC PRN (12:30)
--- NOTE | 2017-07-09 13:10 | General Progress Note ---
Progress Note Progress Note AVSS Tolerating IV heparin day #4 for acute bilateral DVT. c/o right thigh tightness. Doing limited ambulation c/o frequent venipunctures for PTT and lab draws Abdomen soft, non-distended, incision clean Scrotal edema Right thigh swelling diffuse, lower leg/feet okay Urine (voiding without Avalos) 1000 Gastrostomy 230 BCIR ileo 290 WBC 2900 (low of 2100) Hgb 9.5 stable - on Venofer K 3.2 BUN/Cr 9/0.8 Albumin 2.2 Imp. Bilateral DVT - stable Ileus resolving Anemia - receiving Venofer infusions Plan: clear liquid diet/gastrostomy 3:3 protocol continue IV heparin 7 day course before resuming Xarelto D/C basal infusion of MATHEMATICS EDUCATION PROFESSOR - still with scopolamine transderm patch but improved f/u labs - decrease IV fluids and increase KCL ANURADHA SPIVEY Jul 09, 2017 13:10
[2017-07-09] MEDS: NS w/KCl 40mEq 1,000 ML IV SCH (13:44)
[2017-07-09 16:00] VITALS: BP 138/80
[2017-07-09 20:00] VITALS: BP 143/80
[2017-07-09] MEDS: Dyna-Hex 2% Top Sol 2oz TOPIC SCH (20:15)
[2017-07-09] MEDS: Iron Sucrose 100 MG in NS 110 ML IV SCH (20:16)
[2017-07-09] MEDS: LORazepam 1mg tab SL PRN (20:53)
[2017-07-10] VITALS: BP 147/80
[2017-07-10] MEDS: NS w/KCl 40mEq 1,000 ML IV SCH ×2 (00:14→21:00)
[2017-07-10 04:00] VITALS: BP 157/82
[2017-07-10 04:46] LABS: HEMATOCRIT 28.6 % (42.0-52.0); HEMOGLOBIN 9.5 G/DL (14.2-18.0); MEAN CORPUSCULAR VOLUME 77 FL (80-99); PLATELET COUNT 225 K/UL (150-450); RED BLOOD COUNT 3.73 M/UL (4.70-6.10); RED CELL DISTRIBUTION WIDTH 17.2 % (11.6-14.8); WHITE BLOOD COUNT 3.2 K/UL (4.8-10.8)
[2017-07-10 04:56] LABS: ANION GAP 8 mmol/L (5-15); BLOOD UREA NITROGEN 5 mg/dL (7-18); CALCIUM 7.9 MG/DL (8.5-10.1); CARBON DIOXIDE 25 MMOL/L (21-32); CHLORIDE 106 MMOL/L (98-107); CREATININE 0.8 MG/DL (0.55-1.30); POTASSIUM 3.4 MMOL/L (3.5-5.1); SODIUM 139 MMOL/L (136-145)
[2017-07-10] MEDS: NovoLOG Insulin Flexpen SUBQ SCH ×4 (06:30→21:08)
[2017-07-10] MEDS: PCA shift volume MISC SCH ×2 (07:27→19:20)
[2017-07-10] MEDS: Heparin 25,000u/D5W 500ml (VTE/AF) IV SCH ×2 (07:50→21:09)
[2017-07-10 08:00] VITALS: BP 148/75
--- NOTE | 2017-07-10 08:56 | General Progress Note ---
Progress Note Progress Note AVSS Leg tightness is improved. Tolerated clear liquids with gastrostomy 3:3 protocol Abdomen soft, healing nicely, non-distended Urine 1850 Gastrostomy 405 BCIR ileo 590 WBC up 3200 K up 3.4 Imp. Improving Plan: Continue diabetic clear liquid diet - add Glucerna TID Gastrostomy 5:1 protocol as tolerated Maintain continuous drainage of BCIR continent ileostomy Continue IV heparin infusion f/u labs SHEILA finn bilat. lower extremities ANURADHA SPIVEY Jul 10, 2017 08:56
[2017-07-10] MEDS ORDERED: LORazepam 1mg tab SL PRN (09:00)
[2017-07-10] MEDS ORDERED: NS Irrig 1000ml ONE (09:20)
[2017-07-10] MEDS: PCA Morphine 1mg/ml 30 ML IV PRN ×2 (09:55→18:51)
[2017-07-10 12:00] VITALS: BP 142/89
[2017-07-10 16:10] VITALS: BP 144/88
[2017-07-10 20:00] VITALS: BP 152/81
[2017-07-10] MEDS: Iron Sucrose 100 MG in NS 55 ML IV SCH (21:00)
[2017-07-10] MEDS: Dyna-Hex 2% Top Sol 2oz TOPIC SCH (21:09)
[2017-07-11] VITALS: BP 149/91
[2017-07-11 04:00] VITALS: BP 143/85
[2017-07-11 04:41] LABS: BASOPHILS % (AUTO) 2.3 % (0.0-2.0); EOSINOPHILS % (AUTO) 3.2 % (0.0-3.0); HEMATOCRIT 29.7 % (42.0-52.0); HEMOGLOBIN 9.8 G/DL (14.2-18.0); LYMPHOCYTES % (AUTO) 13.2 % (20.0-45.0); MEAN CORPUSCULAR VOLUME 77 FL (80-99); MONOCYTES % (AUTO) 17.8 % (1.0-10.0); NEUTROPHILS % (AUTO) 63.5 % (45.0-75.0); PLATELET COUNT 234 K/UL (150-450); RED BLOOD COUNT 3.85 M/UL (4.70-6.10); WHITE BLOOD COUNT 3.8 K/UL (4.8-10.8)
[2017-07-11 05:05] LABS: ANION GAP 7 mmol/L (5-15); BLOOD UREA NITROGEN 3 mg/dL (7-18); CALCIUM 8.1 MG/DL (8.5-10.1); CARBON DIOXIDE 26 MMOL/L (21-32); CHLORIDE 106 MMOL/L (98-107); CREATININE 0.9 MG/DL (0.55-1.30); POTASSIUM 3.4 MMOL/L (3.5-5.1); SODIUM 139 MMOL/L (136-145)
[2017-07-11] MEDS: NovoLOG Insulin Flexpen SUBQ SCH ×4 (06:11→20:21)
[2017-07-11] MEDS: PCA shift volume MISC SCH (07:12)
[2017-07-11 08:00] VITALS: BP 138/85
[2017-07-11] MEDS ORDERED: Lidocaine HCl 2% Jelly 5ml Tube TOPIC PRN (08:45)
--- NOTE | 2017-07-11 08:50 | General Progress Note ---
Progress Note Progress Note AVSS Tolerated clear liquids + Glucerna with gastrostomy 5:1 protocol Abdomen soft, healing nicely, incision clean right thigh swelling gradually decreasing Urine 3000 Gastrostomy 320 BCIR ileo 865 WBC 3800 (up) Hgb 9.8 K stable 3.4 Imp. Improving Plan; continue IV heparin infusion d/c TOW DRIVER and IV fluids BCIR low residue diet and plug gastrostomy continuously Percocet prn pain maintain continuous drainage of Larsen Continent Ileostomy ANURADHA SPIVEY Jul 11, 2017 08:50
[2017-07-11] MEDS: oxyCODONE HCL/Acetaminophen 5/325mg ORAL PRN ×2 (10:24→16:46)
[2017-07-11] MEDS: Heparin 25,000u/D5W 500ml (VTE/AF) IV SCH (11:32)
[2017-07-11 12:00] VITALS: BP 135/79
[2017-07-11 16:00] VITALS: BP 128/78
[2017-07-11 20:00] VITALS: BP 147/83
[2017-07-11] MEDS: Iron Sucrose 100 MG in NS 55 ML IV SCH (20:20)
[2017-07-11] MEDS: Dyna-Hex 2% Top Sol 2oz TOPIC SCH (20:20)
[2017-07-12] MEDS: Heparin 25,000u/D5W 500ml (VTE/AF) IV SCH ×2 (00:07→14:42)
[2017-07-12] MEDS: oxyCODONE HCL/Acetaminophen 5/325mg ORAL PRN (00:09)
[2017-07-12 00:25] VITALS: BP 132/81
[2017-07-12 04:00] VITALS: BP 128/72
[2017-07-12] MEDS: NovoLOG Insulin Flexpen SUBQ SCH ×4 (06:14→20:38)
[2017-07-12 08:00] VITALS: BP 142/81
[2017-07-12 12:00] VITALS: BP 139/89
[2017-07-12 16:00] VITALS: BP 143/85
[2017-07-12] MEDS ORDERED: IOPAMIDOL INJ PRN (16:30)
--- NOTE | 2017-07-12 16:32 | General Progress Note ---
Progress Note Progress Note AVSS This morning had SOB that resolved. Now fine but T100.4 Not requiring analgesics x 24 hours Eating 40% or so of meals + Glucerna 2-3 per day Abdomen soft, non-distended, healing nicely, non-tender Extremities - no change with swelling right thigh Urine 3400 Gastrostomy - plugged BCIR ileo 1215 Heparin infusion with therapeutic PTT Imp. R/O pulmonary emboli Plan: STAT CTA chest ANURADHA SPIVEY Jul 12, 2017 16:32
[2017-07-12] MEDS ORDERED: Xarelto 10mg tab ORAL ONE (19:00)
[2017-07-12 20:00] VITALS: BP 159/84
[2017-07-12] MEDS: Dyna-Hex 2% Top Sol 2oz TOPIC SCH (20:00)
[2017-07-12] MEDS: Iron Sucrose 100 MG in NS 55 ML IV SCH (20:39)
[2017-07-13] VITALS (7 sets, daily range): BP systolic 124–157; BP diastolic 82–89
[2017-07-13 05:29] LABS: BASOPHILS % (AUTO) 0.7 % (0.0-2.0); EOSINOPHILS % (AUTO) 1.7 % (0.0-3.0); HEMOGLOBIN 10.7 G/DL (14.2-18.0); LYMPHOCYTES % (AUTO) 12.9 % (20.0-45.0); MEAN CORPUSCULAR VOLUME 79 FL (80-99); MONOCYTES % (AUTO) 14.3 % (1.0-10.0); NEUTROPHILS % (AUTO) 70.3 % (45.0-75.0); PLATELET COUNT 255 K/UL (150-450); RED BLOOD COUNT 4.31 M/UL (4.70-6.10); RED CELL DISTRIBUTION WIDTH 20.8 % (11.6-14.8)
[2017-07-13 06:07] LABS: ALANINE AMINOTRANSFERASE 52 U/L (12-78); ALBUMIN 2.4 G/DL (3.4-5.0); ALBUMIN/GLOBULIN RATIO 0.6 (1.0-2.7); ALKALINE PHOSPHATASE 217 U/L (46-116); ANION GAP 10 mmol/L (5-15); ASPARTATE AMINO TRANSFERASE 37 U/L (15-37); BILIRUBIN,TOTAL 0.6 MG/DL (0.2-1.0); BLOOD UREA NITROGEN 3 mg/dL (7-18); CALCIUM 8.2 MG/DL (8.5-10.1); CARBON DIOXIDE 27 MMOL/L (21-32); CHLORIDE 106 MMOL/L (98-107); CREATININE 0.9 MG/DL (0.55-1.30); POTASSIUM 3.3 MMOL/L (3.5-5.1); SODIUM 143 MMOL/L (136-145)
[2017-07-13] MEDS: NovoLOG Insulin Flexpen SUBQ SCH (06:30)
[2017-07-13] MEDS: Xarelto 15mg tab ORAL SCH ×2 (08:06→20:33)
--- NOTE | 2017-07-13 08:16 | General Progress Note ---
Progress Note Progress Note Tmax 100.4 then afebrile. Had no BCIR ileo output overnight and had emesis x 2 with gastrostomy placed to drainage. This AM feels fine, BCIR pouch does not feel full to him Abdomen soft, non-distended, incision clean Urine 3350 Gastrostomy 430 BCIR ileo 1190 WBC 4000 Hgb 10.7 K 3.3 Albumin 2.4 (was 2.2) CTA of chest revealed left lower lobe small segmental PE. Discussed yesterday evening with Dr. Roche (Pulmonology) Imp. 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 Roche to evaluate patient Hopefully can remove PIC line later today or in AM but needed for venous access ANURADHA SPIVEY Jul 13, 2017 08:16
[2017-07-13] MEDS: Repaglinide 1mg tab ORAL SCH ×2 (08:58→17:47)
--- NOTE | 2017-07-13 09:06 | Diagnostic Imaging Report ---
ndication: Shortness of breath Technique: IV administration nonionic contrast. Spiral acquisitions obtained from the lung bases to the lung apices. Multiplanar and 3-D reconstructions were generated. Total dose length product 636.29 mGycm. CTDIvol(s) 23.9 mGy. Dose reduction achieved using automated exposure control Comparison: none Findings: Pulmonary arteries are well opacified. A single small linear filling defect is seen in the left lower lobe pulmonary artery extending into the posterior basilar segmental branch. No other filling defects or other findings to suggest acute pulmonary embolus demonstrated. No evidence of right ventricular dilatation. Heart size is upper limits of normal. No evidence of thoracic aortic aneurysm or dissection. Normal caliber pulmonary arteries. There are bilateral pleural effusions. There is resultant compressive atelectasis at the lung bases posteriorly. The remainder the lungs are clear. No mediastinal or hilar mass or adenopathy. There is a left arm PICC. The included thyroid is unremarkable. No axillary or chest wall mass or adenopathy. The included upper abdominal anatomy is remarkable for a surgical anastomotic staple line in the left upper quadrant with some bowel wall thickening and a gastrostomy tube the spleen is borderline enlarged, measuring 13 cm long axis dimension Impression: Positive for single small left lower lobe segmental pulmonary embolus. No evidence of pulmonary hypertension or right heart strain Small bilateral pleural effusions. Resultant bilateral basilar compressive posterior atelectatic changes Borderline splenomegaly Postsurgical changes of the upper abdomen, incompletely included PICC This agrees with the preliminary interpretation provided overnight by [facility] teleradiology service. The CT scanner at [facility] is accredited by the [employer] and the scans are performed using protocols designed to limit radiation exposure to as low as reasonably achievable to attain images of sufficient resolution adequate for diagnostic evaluation.
--- NOTE | 2017-07-13 14:10 | Consultation ---
Consult Note Consult Note dict PE, DVT Protein S deficiency s/p ileostomy revision Rec: Xarelto 15 mg bid O2 prn ok for air travel in 48 hrs. Raul Roche MD Jul 13, 2017 14:10
--- NOTE | 2017-07-13 17:45 | Consultation ---
DATE OF CONSULTATION: 07/13/2017 HISTORY OF PRESENT ILLNESS: The patient is a very pleasant 56-year-old gentleman who traveled here from [place] for a repair of his malfunctioning Larsen ileostomy. He had surgery at the time of admission and had an uneventful postoperative course. 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 Subcutaneous heparin was given but despite this he developed bilateral deep vein thrombosis. Yesterday he awoke and felt somewhat short of breath despite having vena cava filter in place and being on intravenous heparin infusion for the past several days. CT angiogram showed pulmonary embolism and I was asked to see in consultation. PAST MEDICAL HISTORY: Includes a colectomy, cava filter placement for pulmonary emboli in 2003, protein S deficiency, recurrent deep vein thrombosis, Larsen ileostomy repair, he has a history of ulcerative colitis. ALLERGIES: PENICILLIN SOCIAL HISTORY: He is not a cigarette smoker and does not drink alcoholic excessively. REVIEW OF SYSTEMS: Otherwise unremarkable. He is not short of breath at this time and the leg swelling is improving. PHYSICAL EXAMINATION: VITAL SIGNS: Show no signs of distress or tachycardia. He did have a low-grade fever over the past several days up to 100.4 with saturation satisfactory on room air. GENERAL: He is well developed and well nourished. HEENT: Head is normocephalic. NECK: No jugular venous distention. CHEST: Clear to auscultation and percussion. CARDIAC: Rhythm is regular without murmur or gallop. ABDOMEN: Soft. Surgical wounds in the ileostomy noted. EXTREMITIES: Mild edema. No signs of phlebitis. No cyanosis. No clubbing. Homans sign is negative. IMAGING STUDIES: The CT angiogram of the chest shows small defect in the left lower lobe pulmonary artery extending into the posterior basilar segmental branch with bilateral effusions and some atelectasis. No masses are seen. The PICC line is in place. Venous duplex scan done on July 06, 2017 shows acute occlusive thrombus in the common femoral vein of the right leg extending to the distal superficial femoral vein, left leg shows an acute occlusive thrombus in the mid distal superficial femoral, popliteal, and peroneal veins. IMPRESSION: 1. Postoperative pulmonary emboli due to deep vein thrombosis. 2. Protein S deficiency. 3. History of vena cava filter. 4. Status post ileostomy revision. 5. Ulcerative colitis. PLAN: The patient was changed from heparin drip to Xarelto 15 mg b.i.d. and is now fully anticoagulated. He is no longer feeling any symptoms from small pulmonary embolism that he suffered over the last day or two. The patient appears to be in satisfactory condition for discharge as planned in two days [place] Thank you for asking me to see him in consultation. I discussed the case today with Dr. Spencer. Michael Roche M.D. DR: Neli JOB#: [id number] CC: Paulo Spencer M.D.; Fax#: [phone] MICHAEL ROCHE M.D. ; FAX#: [phone]
[2017-07-13] MEDS: Iron Sucrose 100 MG in NS 55 ML IV SCH (20:33)
[2017-07-13] MEDS: Dyna-Hex 2% Top Sol 2oz TOPIC SCH (20:33)
[2017-07-14] VITALS: BP 142/74
[2017-07-14 04:00] VITALS: BP 130/78
[2017-07-14 04:43] LABS: BASOPHILS % (AUTO) 1.2 % (0.0-2.0); EOSINOPHILS % (AUTO) 2.8 % (0.0-3.0); HEMATOCRIT 32.1 % (42.0-52.0); HEMOGLOBIN 10.5 G/DL (14.2-18.0); LYMPHOCYTES % (AUTO) 10.6 % (20.0-45.0); MEAN CORPUSCULAR VOLUME 79 FL (80-99); MONOCYTES % (AUTO) 10.7 % (1.0-10.0); NEUTROPHILS % (AUTO) 74.7 % (45.0-75.0); PLATELET COUNT 262 K/UL (150-450); RED BLOOD COUNT 4.05 M/UL (4.70-6.10); RED CELL DISTRIBUTION WIDTH 20.9 % (11.6-14.8); WHITE BLOOD COUNT 6.1 K/UL (4.8-10.8)
[2017-07-14 04:44] LABS: ANION GAP 8 mmol/L (5-15); BLOOD UREA NITROGEN 6 mg/dL (7-18); CALCIUM 8.2 MG/DL (8.5-10.1); CARBON DIOXIDE 24 MMOL/L (21-32); CHLORIDE 107 MMOL/L (98-107); POTASSIUM 3.9 MMOL/L (3.5-5.1); SODIUM 139 MMOL/L (136-145)
[2017-07-14 08:00] VITALS: BP 136/86
[2017-07-14] MEDS: Xarelto 15mg tab ORAL SCH ×2 (08:14→20:32)
[2017-07-14] MEDS: Repaglinide 1mg tab ORAL SCH ×2 (08:14→17:38)
--- NOTE | 2017-07-14 10:00 | General Progress Note ---
Progress Note Progress Note AVSS Feeling well though eating 50% + supplements ABdomen soft, flat, gastrostomy site clean and dry Noah removed and steristrips applied Urine 2250 BCIR ileo 1855 WBC 6100 Hgb 10.5 BMP - all wnl Imp: Improved Plan: Begin RN supervised BCIR self-intubations q3h If stable will discharge in AM Rx Xarelto 15mg #30 1 po q12h, then resume 20mg daily Full supplies/instructions/limitations provided/discussed f/u office 07/18 and call ANURADHA Wilde Jul 14, 2017 10:00
[2017-07-14 12:14] VITALS: BP 147/86
[2017-07-14] MEDS ORDERED: FLUCONAZOLE100 MG ORAL ×2 (14:15→14:18)
[2017-07-14] MEDS ORDERED: Fluconazole 100mg tab ORAL PRN (14:45)
[2017-07-14] MEDS ORDERED: metroNIDAZOLE 500mg tab ORAL PRN (14:45)
[2017-07-14] MEDS ORDERED: Fluconazole 100mg tab ORAL SCH (15:00)
[2017-07-14 16:00] VITALS: BP 131/86
--- NOTE | 2017-07-14 16:42 | Pulmonology Progress Note ---
Assessment/Plan Assessment/Plan 1. Postoperative pulmonary emboli due to deep vein thrombosis. 2. Protein S deficiency. 3. History of vena cava filter. 4. Status post ileostomy revision. 5. Ulcerative colitis. xarelto as rx wound care pain control on ra po as toelrated dc planning Subjective Constitutional: Reports: no symptoms HEENT: Repors: no symptoms Respiratory: Reports: no symptoms Cardiovascular: Reports: no symptoms Allergies: Coded Allergies: PENICILLIN G (Verified Allergy, Mild, 09/07/09) Subjective doing well toerlating po nio cp vn or bleeding oob no fever pain controlled Objective Last 24 Hour Vital Signs Date Time Temp Pulse Resp B/P (MAP) Pulse Ox O2 Delivery O2 Flow Rate FiO2 07/14/17 12:14 97.8 58 19 147/86 96 Room Air 97.8 07/14/17 08:00 98.4 58 18 136/86 98 Room Air 98.4 07/14/17 04:00 98.5 62 17 130/78 95 Room Air 98.5 07/14/17 00:00 98.1 60 18 142/74 95 Room Air 98.1 07/13/17 20:00 98.1 66 18 124/85 96 Room Air 98.1 Intake and Output 07/13/17 07/14/17 19:00 07:00 Intake Total 840 ml 650 ml Output Total 1805 ml 2330 ml Balance -965 ml -1680 ml Intake Oral 840 ml 650 ml Output Urine Total 1100 ml 1150 ml Other 705 ml 1180 ml # Voids 3 4 General Appearance: WD/WN Respiratory/Chest: lungs clear, no respiratory distress Cardiovascular: normal rate, regularly irregular Abdomen: no organomegaly, non distended, no mass Extremities: no clubbing Skin: no rash, no lesions 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, no motor/sensory deficits, abnormal gait, oriented x 3 Lymphatic: no neck adenopathy Musculoskeletal: no effusion Laboratory Tests 07/14/17 04:20: White Blood Count 6.1#, Red Blood Count 4.05L, Hemoglobin 10.5L, Hematocrit 32.1L, Mean Corpuscular Volume 79L, Mean Corpuscular Hemoglobin 25.9L, Mean Corpuscular Hemoglobin Concent 32.7, Red Cell Distribution Width 20.9H, Platelet Count 262, Mean Platelet Volume 7.2, Neutrophils (%) (Auto) 74.7, Lymphocytes (%) (Auto) 10.6L, Monocytes (%) (Auto) 10.7H, Eosinophils (%) (Auto ) 2.8, Basophils (%) (Auto) 1.2, Sodium Level 139, Potassium Level 3.9, Chloride Level 107, Carbon Dioxide Level 24, Anion Gap 8, Blood Urea Nitrogen 6L , Creatinine 1.0, Estimat Glomerular Filtration Rate > 60, Glucose Level 151H, Calcium Level 8.2L Current Medications Medications (Trade) Dose Ordered Sig/Hernan Route PRN Reason Start Time Stop Time Status Last Admin Dose Admin Acetaminophen (Tylenol) 1,000 mg Q4H PRN GT temp>100.2 or headache 07/04/17 13:00 08/03/17 12:59 07/14/17 06:09 Lidocaine HCl (Xylocaine Jelly 2%) 1 applic EVERY 2 HOURS PRN TOPIC For Pain 07/11/17 08:45 08/10/17 08:44 07/11/17 09:46 Lorazepam (Ativan) 1 mg Q4H PRN SL Muscle Spasm 07/10/17 09:00 07/17/17 08:59 07/12/17 20:50 Metronidazole (Flagyl) 250 mg QID ORAL 07/14/17 18:00 07/21/17 17:59 Ondansetron HCl (Zofran) 4 mg Q4H PRN IVP Nausea & Vomiting 07/04/17 13:00 08/03/17 12:59 07/12/17 22:58 Oxycodone/ Acetaminophen (Percocet 5-325) 1 tab Q4H PRN ORAL Moderate Pain (Pain Scale 4-6) 07/11/17 08:45 07/18/17 08:44 07/12/17 00:09 Prochlorperazine (Compazine) 10 mg Q6H PRN IV N/V UNRELIEVED BY IV ZOFRAN 07/04/17 16:15 08/03/17 16:14 07/13/17 02:10 Repaglinide (Prandin) 1 mg TWICE A DAY ORAL 07/13/17 09:00 08/12/17 08:59 07/14/17 08:14 Rivaroxaban (Xarelto) 15 mg Q12HR ORAL 07/13/17 09:00 08/12/17 08:59 07/14/17 08:14 Temazepam (Restoril) 15 mg HSPRN PRN ORAL Insomnia 07/09/17 13:15 07/16/17 13:14 07/10/17 00:14 DENISE FINLEY DO Jul 14, 2017 16:42
[2017-07-14] MEDS: metroNIDAZOLE 250mg tab ORAL SCH ×2 (17:38→20:32)
[2017-07-14 20:00] VITALS: BP 146/85
[2017-07-14] MEDS ORDERED: NS Irrig 1000ml ONE (20:52)
[2017-07-15 06:00] VITALS: BP 133/83
[2017-07-15] MEDS: Xarelto 15mg tab ORAL SCH (06:07)
--- NOTE | 2017-07-15 06:07 | Pulmonology Progress Note ---
Assessment/Plan Assessment/Plan 1. Postoperative pulmonary emboli due to deep vein thrombosis. 2. Protein S deficiency. 3. History of vena cava filter. 4. Status post ileostomy revision. 5. Ulcerative colitis. xarelto as rx wound care pain control on ra po as toelrated dc planning for this am Subjective Constitutional: Reports: no symptoms HEENT: Repors: no symptoms Respiratory: Reports: no symptoms Gastrointestinal/Abdominal: Reports: no symptoms Genitourinary: Reports: no symptoms Neurologic: Reports: no symptoms Allergies: Coded Allergies: PENICILLIN G (Verified Allergy, Mild, 09/07/09) Subjective doing well toerlating po nio cp vn or bleeding oob no fever pain controlled Objective Last 24 Hour Vital Signs Date Time Temp Pulse Resp B/P (MAP) Pulse Ox O2 Delivery O2 Flow Rate FiO2 07/14/17 20:00 98.0 58 18 146/85 97 98.0 07/14/17 19:02 96 Nasal Cannula 2.0 28 07/14/17 19:02 Nasal Cannula 2.0 28 07/14/17 16:00 97.9 80 19 131/86 97 Room Air 97.9 07/14/17 12:14 97.8 58 19 147/86 96 Room Air 97.8 07/14/17 08:00 98.4 58 18 136/86 98 Room Air 98.4 Intake and Output 07/14/17 07/15/17 19:00 07:00 Intake Total 840 ml Output Total 2000 ml Balance -1160 ml Intake Oral 840 ml Output Urine Total 900 ml Other 1100 ml # Voids 2 General Appearance: WD/WN HEENT: atraumatic, anicteric Respiratory/Chest: lungs clear, normal breath sounds Cardiovascular: normal rate, regular rhythm Abdomen: soft, non tender, no organomegaly Extremities: no cyanosis, no clubbing Skin: no lesions - cdi Neurologic/Psychiatric: food safety officer II-XII grossly normal, no motor/sensory deficits, oriented x 3, responsive Current Medications Medications (Trade) Dose Ordered Sig/Hernan Route PRN Reason Start Time Stop Time Status Last Admin Dose Admin Acetaminophen (Tylenol) 1,000 mg Q4H PRN GT temp>100.2 or headache 07/04/17 13:00 08/03/17 12:59 07/14/17 06:09 Lidocaine HCl (Xylocaine Jelly 2%) 1 applic EVERY 2 HOURS PRN TOPIC For Pain 07/11/17 08:45 08/10/17 08:44 07/11/17 09:46 Lorazepam (Ativan) 1 mg Q4H PRN SL Muscle Spasm 07/10/17 09:00 07/17/17 08:59 07/12/17 20:50 Metronidazole (Flagyl) 250 mg QID ORAL 07/14/17 18:00 07/21/17 17:59 07/14/17 20:32 Ondansetron HCl (Zofran) 4 mg Q4H PRN IVP Nausea & Vomiting 07/04/17 13:00 08/03/17 12:59 07/12/17 22:58 Oxycodone/ Acetaminophen (Percocet 5-325) 1 tab Q4H PRN ORAL Moderate Pain (Pain Scale 4-6) 07/11/17 08:45 07/18/17 08:44 07/12/17 00:09 Prochlorperazine (Compazine) 10 mg Q6H PRN IV N/V UNRELIEVED BY IV ZOFRAN 07/04/17 16:15 08/03/17 16:14 07/13/17 02:10 Repaglinide (Prandin) 1 mg TWICE A DAY ORAL 07/13/17 09:00 08/12/17 08:59 07/14/17 17:38 Rivaroxaban (Xarelto) 15 mg Q12HR ORAL 07/13/17 09:00 08/12/17 08:59 07/14/17 20:32 Temazepam (Restoril) 15 mg HSPRN PRN ORAL Insomnia 07/09/17 13:15 07/16/17 13:14 07/10/17 00:14 DENISE FINLEY DO Jul 15, 2017 06:07
[2017-07-15] MEDS: oxyCODONE HCL/Acetaminophen 5/325mg ORAL PRN (06:44)
== END 2017-07-15 07:00 | disposition home or self-care (01) | DRG 335 ==
LOC: 3E 09:33 → SDSOVERFLO 07-05 20:32 → 3E 07-05 20:34
PROC: B518ZZA Fluoroscopy of Superior Vena Cava, Guidance (ICD-10-PCS; principal; 2017-07-03)
PROC: 02HV33Z Insertion of Infusion Device into Superior Vena Cava, Percutaneous Approach (ICD-10-PCS; principal; 2017-07-03)
PROC: 0DNW0ZZ Release Peritoneum, Open Approach (ICD-10-PCS; 2017-07-04)
PROC: 0DNA0ZZ Release Jejunum, Open Approach (ICD-10-PCS; 2017-07-04)
PROC: 0DNB0ZZ Release Ileum, Open Approach (ICD-10-PCS; 2017-07-04)
DX: K94.13 Enterostomy malfunction (principal); I26.99 Other pulmonary embolism without acute cor pulmonale; D68.59 Other primary thrombophilia; I82.493 Acute embolism and thrombosis of other specified deep vein of lower extremity, bilateral; K56.7 Ileus, unspecified; R06.02 Shortness of breath; K21.9 Gastro-esophageal reflux disease without esophagitis; D64.9 Anemia, unspecified; K66.0 Peritoneal adhesions (postprocedural) (postinfection); K66.8 Other specified disorders of peritoneum
CPT/HCPCS: 36415; 36569; 71045; 71275; 76937; 80048; 80053; 81003; 82607; 82728; 82746; 82962; 83036; 83540; 83550; 84550; 85007; 85025; 85610; 85730; 86850; 86900; 86901; 86920; 93005; 93970; 94003; 94150; 94760; J1815; J2250; J2405; J8499

== ENCOUNTER 2018-01-22 07:30 | Inpatient (IN) | payer OTHER ==
--- NOTE | 2018-01-21 15:45 | Pre-op HX & Phy Repo 2 SIG ---
DATE OF ADMISSION: 01/22/2018 ANTICIPATED DATE OF ADMISSION: Scheduled for admission on January 22, 2018 HISTORY OF PRESENT ILLNESS: The patient is a 57-year-old male in overall stable health, but with a hypercoagulable condition, who is admitted with a partial closed-loop obstruction in the proximal small bowel in the left upper quadrant and a malfunctioning Larsen continent intestinal reservoir with difficulty with intubation and occasional bleeding. The patient has a past history of ulcerative colitis and in the past has undergone total colectomy with creation of a J-pouch in [place], which was followed by immediate resection due to infarction of the J-pouch and a conventional Barbara ileostomy, all in 2004. In 2005 he underwent conversion of his malfunctioning conventional ileostomy to a Larsen continent intestinal reservoir with revision in 2009. On July 04, 2017, he underwent laparotomy with an extensive 2-hour-plus lysis of adhesions and enteroenterostomy which was done to decompress a chronically partially obstructed dilated loop in the left upper quadrant of [id number] small bowel. I was reluctant to resect it in view of his other small-bowel resections. All of his operations will be listed at the end of this dictation. He had a hostile abdomen with severe adhesions and the Larsen pouch was not dissected or revised nor was the stoma. Since that time, he had a period of several months where he was able to eat but would have cramping and prolonged fullness. Modifications were made to his diet and when he was on full-liquid diet, he had no cramping at all, but still pain in the left upper quadrant. He would intubate his continent ileostomy pouch 5 to 6 times a day. He has been able to work out on the treadmill and light exercise. He had approximately 2 months to 3 months when he had very little GI symptoms and was able to eat some solid food, but had mild abdominal cramping soon after any oral intake. In October these symptoms became severe with recurrence of reflux symptoms when bending over and some shortness of breath, all previously worked up with no other etiology. He underwent CT scan of abdomen and pelvis with and without contrast in [place] in August revealing the persistent dilated bowel loop. He underwent a Gastrografin upper GI x-ray with small-bowel follow-through in early November 2017 which revealed that the ingested contrast got to the Larsen pouch in 30 minutes , however, there was a persistent air-distended loop of bowel in the left upper quadrant that did fill with contrast and while the contrast emptied, the loop remained air-filled. The patient has not responded to medical management including Reglan, which caused more intense cramping, and antispasmodics that have not provided any symptomatic relief. It is felt that this abnormal loop will need to be resected and attention will be directed to the Larsen pouch to revise any difficulty with intubation. PAST MEDICAL HISTORY: MEDICATIONS: Xarelto 20 mg daily d/c'd recently with Lovenox 40mg SQ daily for the past 3 days including the day of admission. The patient has a factor S deficiency and requires lifelong anticoagulation. While in the hospital in June 2017, despite appropriate prophylaxis, he developed pulmonary embolism and was given therapeutic anticoagulation with Xarelto and his stable dose now is 20 mg daily. He has had an inferior vena cava filter for pulmonary emboli placed in 2003. He has had extensive problems with deep vein thrombosis in the lower extremities. ALLERGIES TO MEDICATIONS: Penicillin OPERATIONS: Please see list at the end of this dictation. REVIEW OF SYSTEMS: The patient has had persistent peristomal pain from his Larsen stoma low in the right lower quadrant and has undergone stem cell injections into the pubic mound and parastomal area with some improvement. PHYSICAL EXAMINATION: The [place] and will be examined upon arrival and dictated separately. He is 5 feet 7 inches, approximately 180 pounds. IMPRESSION: 1. 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 2. Malfunctioning Larsen continent intestinal reservoir with difficulty with intubation and evacuation with known redundant access segment based on prior Larsen pouch endoscopy. 3. Hypercoagulable state with factor S deficiency, on chronic lifelong Xarelto 4. History of ulcerative colitis. 5. STATUS POST MULTIPLE ABDOMINAL OPERATIONS: 5.1. Total colectomy with ileoanal J-pouch in August 2004 in [place]. 5.2. Resection of infarcted J-pouch and creation of Barbara ileostomy in [place] in August 2004. 5.3. Creation of Larsen continent intestinal reservoir in 2005 5.4. Repair of ventral incisional hernia, parastomal hernia, and left inguinal hernia in October 2007. 5.5. Laparotomy with extensive lysis of adhesions and complex revision of Larsen continent ileostomy with enteroenterostomy and revision of stoma in depth and revision of the valve, and repair of right inguinal hernia in 2009. 5.6. Laparotomy with extensive 2-hour-plus lysis of adhesions and enteroenterostomy on July 04, 2017. DISCUSSION: I have had a full discussion with the patient regarding the nature of his condition, the nature of the planned surgery, indications, alternatives, options, and risks including deferring surgery for another 6 months potentially, but his symptoms are worsening and this would not be appropriate for his overall health. I have discussed the general risks of surgery including bleeding, infection, injury to adjacent structures or organs, extensive bowel resection, possible short-bowel syndrome, possible conventional ileostomy, revision of the pouch, temporary catheter gastrostomy, anesthetic reactions, deep vein thrombosis despite prophylaxis, recurrent pulmonary emboli, etc. I will have another discussion in person when the patient arrives from out of state. Paulo Spencer M.D. DR: Timbo JOB#: [id number] CC: INEZ
[~2018-01-22] VITALS: Ht 170.2 cm; Wt 86.2 kg
[~2018-01-22 07:30] MED LIST changes: +FLUCONAZOLE100 MG ORAL
[2018-01-22] MEDS ORDERED: Lidocaine 1% Plain 30 ml INJ SCH (09:45)
[2018-01-22] MEDS ORDERED: Heparin 2000 units/Ns 1000ml INJ SCH (09:45)
[2018-01-22 09:56] VITALS: BP 123/81
[2018-01-22 10:12] LABS: BASOPHILS % (AUTO) 1.9 % (0.0-2.0); HEMATOCRIT 47.3 % (42.0-52.0); HEMOGLOBIN 15.5 G/DL (14.2-18.0); LYMPHOCYTES % (AUTO) 25.7 % (20.0-45.0); MEAN CORPUSCULAR VOLUME 86 FL (80-99); MONOCYTES % (AUTO) 11.5 % (1.0-10.0); NEUTROPHILS % (AUTO) 57.9 % (45.0-75.0); PLATELET COUNT 251 K/UL (150-450); RED BLOOD COUNT 5.52 M/UL (4.70-6.10); RED CELL DISTRIBUTION WIDTH 12.9 % (11.6-14.8); WHITE BLOOD COUNT 4.3 K/UL (4.8-10.8)
[2018-01-22 10:16] LABS: APPEARANCE,URINE CLEAR; BILIRUBIN, URINE NEGATIVE (NEGATIVE); GLUCOSE, URINE (UA) NEGATIVE (NEGATIVE); KETONES,URINE 1+ (NEGATIVE); LEUKOCYTE ESTERASE ,URINE 2+ (NEGATIVE); NITRITE,URINE NEGATIVE (NEGATIVE); PH,URINE 7 (4.5-8.0); PROTEIN,URINE 2+ (NEGATIVE); UROBILINOGEN,URINE 1 MG/DL (0.0-1.0)
[2018-01-22 10:24] LABS: ANION GAP 9 mmol/L (5-15); BLOOD UREA NITROGEN 15 mg/dL (7-18); CALCIUM 10.1 MG/DL (8.5-10.1); CARBON DIOXIDE 27 MMOL/L (21-32); CHLORIDE 102 MMOL/L (98-107); COLOR,URINE YELLOW; CREATININE 1.4 MG/DL (0.55-1.30); POTASSIUM 4.1 MMOL/L (3.5-5.1); SODIUM 138 MMOL/L (136-145)
[2018-01-22 10:29] LABS: ALANINE AMINOTRANSFERASE 32 U/L (12-78); ALBUMIN 3.6 G/DL (3.4-5.0); ALBUMIN/GLOBULIN RATIO 0.7 (1.0-2.7); ALKALINE PHOSPHATASE 103 U/L (46-116); ASPARTATE AMINO TRANSFERASE 19 U/L (15-37); BILIRUBIN,TOTAL 0.5 MG/DL (0.2-1.0)
[2018-01-22] MEDS ORDERED: FLUCONAZOLE100 MG ORAL (10:49)
[2018-01-22] MEDS ORDERED: XARELTO10 MG ORAL (10:49)
[2018-01-22] MEDS ORDERED: REPAGLINIDE0.5 MG PO (10:49)
[2018-01-22] MEDS ORDERED: CELEBREX200 MG ORAL (10:49)
[2018-01-22 11:20] LABS: FERRITIN 13 NG/ML (8-388)
[2018-01-22 11:28] LABS: % IRON SATURATION 15 % (15-50); IRON 61 ug/dL (50-175); TOTAL IRON BINDING CAPACITY 396 ug/dL (250-450)
[2018-01-22] MEDS: Neomycin Sulfate 500mg Tab ORAL SCH ×3 (11:38→21:25)
[2018-01-22 11:43] VITALS: BP 131/79
--- NOTE | 2018-01-22 12:29 | Diagnostic Imaging Report ---
Indication: uniform cap operator venous access Findings: After the indications, procedure, risks, complications, and alternatives of the procedure were explained, written informed consent was obtained. The left upper extremity was prepped with alcohol. All elements of maximal sterile barrier technique were followed including usage of a cap, mask, sterile gown, sterile gloves, hand hygiene and a large sterile sheet. Sonographic evaluation of the upper extremity was performed demonstrating a patent and compressible basilic vein. Access was obtained under real-time ultrasound guidance (with utilization of sterile gel and sterile probe cover) and digital image was saved and archived. An .018 wire was introduced. Needle exchanged for a 5 German peel-away sheath. Measurements were obtained. A 5 German dual-lumen Power PICC line catheter was cut to 43 cm and introduced over the wire. Peel-away sheath and wire were removed.Catheter was secured to the skin using 2-0 Prolene suture. Both ports aspirate and flush easily. Fluoroscopic images show distal tip in the superior vena cava. Total fluoroscopic time 0.2 minutes. Impression: Successful placement of an upper extremity PICC line catheter
--- NOTE | 2018-01-22 13:01 | Diagnostic Imaging Report ---
Indication: Cough Comparison: 07/03/2017 A single view chest radiograph was obtained. Findings: Lungs are clear. Aorta is mildly ectatic. Bones are unremarkable. Heart size is normal. PICC line is in good position and unchanged. IMPRESSION: No acute disease. No significant change
--- NOTE | 2018-01-22 15:10 | Anethesia Preoperative Eval ---
Anesthesia Pre-op PMH/ROS General Date of Evaluation: Jan 22, 2018 Time of Evaluation: 15:04 Anesthesiologist: Jeremi ASA Score: ASA 3 Mallampati Score Class I : Soft palate, uvula, fauces, pillars visible Class II: Soft palate, uvula, fauces visible Class III: Soft palate, base of uvula visible Class IV: Only hard plate visible Mallampati Classification: Class II Surgeon: Johanna Diagnosis: Malfunctioning continent pouch Surgical Procedure: Ex laparotomy revision of continent pouch Anesthesia History: none Family History: no anesthesia problems Allergies: Coded Allergies: PENICILLIN G (Verified Allergy, Mild, 09/07/09) Patient NPO?: Yes Past Medical History Cardiovascular: Denies: HTN, CAD, AL, valve dz, arrhythmia, other Pulmonary: Denies: asthma, COPD, ANDREW, other Gastrointestinal/Genitourinary: Reports: GERD, other - h/o UC s/p total colectomy; Denies: CRI, ESRD Neurologic/Psychiatric: Reports: depression/anxiety; Denies: dementia, CVA, TIA, other HEENT: Denies: cataract (L), cataract (R), glaucoma, [place] (L), [place] (R), other Hematology/Immune: Reports: DVT - h/o , other - hypercoagulative state, factor S deficiency, h/o PE filter in; Denies: anemia, bleeding disorder Musculoskeletal/Integumentary: Denies: OA, RA, DJD, DDD, edema, other PMH Narrative: as above PSxH Narrative: Multiple abdominal Sx, see list in H&P section Anesthesia Pre-op Phys. Exam Physician Exam Last Vital Signs Date Time Temp Pulse Resp B/P (MAP) Pulse Ox O2 Delivery O2 Flow Rate FiO2 01/22/18 11:43 97.0 55 20 131/79 (96) 100 01/22/18 10:00 Room Air Constitutional: NAD Neurologic: CN 2-12 intact Cardiovascular: RRR, no M/R/G Respiratory: CTA Gastrointestinal: S/NT/ND Airway Exam Mallampati Score: Class II MO: full Neck: flexible ROM: full Teeth: intact Dentures: no upper, no lower Anesthesia Pre-op A/P Labs Hematology Test 01/22/18 09:00 White Blood Count 4.3 K/UL (4.8-10.8) L Red Blood Count 5.52 M/UL (4.70-6.10) Hemoglobin 15.5 G/DL (14.2-18.0) Hematocrit 47.3 % (42.0-52.0) Mean Corpuscular Volume 86 FL (80-99) Mean Corpuscular Hemoglobin 28.1 PG (27.0-31.0) Mean Corpuscular Hemoglobin Concent 32.7 G/DL (32.0-36.0) Red Cell Distribution Width 12.9 % (11.6-14.8) Platelet Count 251 K/UL (150-450) Mean Platelet Volume 6.6 FL (6.5-10.1) Neutrophils (%) (Auto) 57.9 % (45.0-75.0) Lymphocytes (%) (Auto) 25.7 % (20.0-45.0) Monocytes (%) (Auto) 11.5 % (1.0-10.0) H Eosinophils (%) (Auto) 3.0 % (0.0-3.0) Basophils (%) (Auto) 1.9 % (0.0-2.0) Coagulation Test 01/22/18 09:00 Prothrombin Time 10.5 SEC (9.30-11.50) Prothromb Time International Ratio 1.0 (0.9-1.1) Activated Partial Thromboplast Time 30 SEC (23-33) Chemistry Test 01/22/18 09:00 Sodium Level 138 MMOL/L (136-145) Potassium Level 4.1 MMOL/L (3.5-5.1) Chloride Level 102 MMOL/L (98-107) Carbon Dioxide Level 27 MMOL/L (21-32) Anion Gap 9 mmol/L (5-15) Blood Urea Nitrogen 15 mg/dL (7-18) Creatinine 1.4 MG/DL (0.55-1.30) H Estimat Glomerular Filtration Rate 52.2 mL/min (>60) Glucose Level 99 MG/DL (74-106) Calcium Level 10.1 MG/DL (8.5-10.1) Iron Level 61 ug/dL (50-175) Total Iron Binding Capacity 396 ug/dL (250-450) Percent Iron Saturation 15 % (15-50) Unsaturated Iron Binding 335 ug/dL (112-346) Ferritin 13 NG/ML (8-388) Total Bilirubin 0.5 MG/DL (0.2-1.0) Aspartate Amino Transf (AST/SGOT) 19 U/L (15-37) Alanine Aminotransferase (ALT/SGPT) 32 U/L (12-78) Alkaline Phosphatase 103 U/L (46-116) Total Protein 8.5 G/DL (6.4-8.2) H Albumin 3.6 G/DL (3.4-5.0) Globulin 4.9 g/dL Albumin/Globulin Ratio 0.7 (1.0-2.7) L Vitamin B12 Level 820 PG/ML (193-986) Folate 17.2 NG/ML (8.6-58.9) Risk Assessment & Plan Assessment: ASA 3 Plan: GA with ETT Pre-Antibiotics Drug: as scheduled Chris Blood MD Jan 22, 2018 15:10
--- NOTE | 2018-01-22 15:30 | Consultation ---
Consult Note Assessment/Plan pulm consult dict resume Lovenox post op when cleared by Raul Mckeon MD Jan 22, 2018 15:30
[2018-01-22 15:43] VITALS: BP 122/89
[2018-01-22] MEDS: D5 1/2NS w/KCl 20mEq 1,000 ML IV SCH (15:45)
--- NOTE | 2018-01-22 15:52 | General Progress Note ---
Progress Note Progress Note H&P dictated. Weight 190 Iron 61 (50-175) Ferritin 13 (8-388) B12 okay - received IM few weeks ago Folate 17.2 (8.6-58.9) Albumin 3.6 WBC 4300 Hgb 15.5 BU"N 15 Cr 1.4 Imp. Mildly dehydration Plan: Start IV hydration now via PICC f/u labs in AM including uric acid (past history of gout) Heparin pre-op SQ; Lovenox post-op until can resume Xarelto Full discussion again re surgery with patient and . Paulo Spencer MD Jan 22, 2018 15:52
[2018-01-22] MEDS ORDERED: D5 1/2NS w/KCl 20mEq 1,000 ML IV SCH (18:00)
--- NOTE | 2018-01-22 20:15 | Consultation ---
DATE OF CONSULTATION: 01/22/2018 PULMONARY CONSULTATION CONSULTING PHYSICIAN: Raul Roche M.D. CHIEF COMPLAINT: Abdominal pain. HISTORY OF PRESENT ILLNESS: The patient is admitted for revision and correction of recurrent abdominal pain due to partial small bowel obstruction in the setting of the Larsen continent intestinal reservoir. He had a past history of ulcerative colitis and has had a previous colectomy. He was here in June of this year and had an extensive laparotomy with lysis of adhesions and had postoperative deep vein thrombosis and pulmonary embolism. I saw him in consultation on medication as well. He has a prior history of protein S deficiency and was off anticoagulants for a short time due to his surgery. He has had no further blood clotting problems in 7 months since that time while taking daily Xarelto 20 mg. In consultation with Dr. Spencer, I recommended holding the Xarelto for 3 days and administering Lovenox daily, which the patient states that he has been compliant with. He has a vena cava filter in place. PAST MEDICAL HISTORY: Please refer to Dr. Spencer's complete notes regarding his bowel history. He has ulcerative colitis and has had a total colectomy and ileostomy. He has past protein S deficiency with deep vein thrombosis, pulmonary embolism, and vena cava filter. ALLERGIES: Penicillin. REVIEW OF SYSTEMS: He has no current pulmonary symptoms and no chest pain or shortness of breath and has no hemoptysis or leg swelling. MEDICATIONS: Reviewed. SOCIAL HISTORY: He does not smoke or use alcohol or drugs. He lives with his . PHYSICAL EXAMINATION: GENERAL: He is alert and responds appropriately. VITAL SIGNS: Normal. SKIN: Warm and dry. HEENT: The head is normocephalic. NECK: No jugular vein distention. No lymphadenopathy. CHEST: Clear. CARDIAC: Rhythm is regular. ABDOMEN: Soft and nontender. There is an ileostomy in place. EXTREMITIES: Legs are soft without signs of phlebitis. There is no clubbing, cyanosis, or edema. LABORATORY AND DIAGNOSTIC DATA: White count is 4300, platelets are normal, and hemoglobin is 15.3. Chemistry shows creatinine 1.4. Protein is slightly elevated at 8.5 with albumin 3.6. Urinalysis shows no significant findings. Coagulation is normal. Imaging of his legs show recanalized chronic thrombus in both legs. Chest x-ray shows nothing acute. PICC line has been inserted today. IMPRESSION: 1. Preop for laparotomy. 2. 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 3. Status post vena cava filter. PLAN: We will hold anticoagulants prior to the planned surgery tomorrow and resume them as soon as Dr. Spencer feels it is acceptable depending on the outcome of the surgery. I will follow him closely with you following surgery. Thank you. Raul Roche M.D. DR: LAURA JOB#: [id number] CC: Paulo Spencer M.D. ; Fax#: [phone]
[2018-01-22 20:20] VITALS: BP 117/80
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
[2018-01-22] MEDS: Dyna-Hex 2% Top Sol 2oz TOPIC SCH (21:25)
[2018-01-23] VITALS (13 sets, daily range): BP systolic 107–154; BP diastolic 70–101
[2018-01-23] MEDS: D5 1/2NS w/KCl 20mEq 1,000 ML IV SCH ×2 (00:35→11:30)
[2018-01-23 04:34] LABS: BASOPHILS % (AUTO) 1.4 % (0.0-2.0); EOSINOPHILS % (AUTO) 3.5 % (0.0-3.0); HEMATOCRIT 43.4 % (42.0-52.0); HEMOGLOBIN 14.7 G/DL (14.2-18.0); LYMPHOCYTES % (AUTO) 12.6 % (20.0-45.0); MEAN CORPUSCULAR VOLUME 84 FL (80-99); MONOCYTES % (AUTO) 10.5 % (1.0-10.0); PLATELET COUNT 198 K/UL (150-450); RED BLOOD COUNT 5.16 M/UL (4.70-6.10); RED CELL DISTRIBUTION WIDTH 12.6 % (11.6-14.8); WHITE BLOOD COUNT 4.1 K/UL (4.8-10.8)
[2018-01-23 04:48] LABS: ANION GAP 6 mmol/L (5-15); BLOOD UREA NITROGEN 13 mg/dL (7-18); CALCIUM 8.7 MG/DL (8.5-10.1); CARBON DIOXIDE 26 MMOL/L (21-32); CHLORIDE 104 MMOL/L (98-107); CREATININE 1.3 MG/DL (0.55-1.30); POTASSIUM 4.5 MMOL/L (3.5-5.1); SODIUM 136 MMOL/L (136-145)
[2018-01-23] MEDS ORDERED: Heparin 5000 units/ml inj SUBQ ONE (06:30)
--- NOTE | 2018-01-23 07:21 | Pre-Procedure Note/Attestation ---
Pre-Procedure Note/Attestation Complete Prior to Procedure Planned Procedure: not applicable Procedure Narrative: small bowel resection and revision Larsen Continent Ileostomy Indications for Procedure Pre-Operative Diagnosis: chronic partial closed loop obstruction and malfunctioning Larsen Continent Ileostomy Attestation I attest that I discussed the nature of the procedure; its benefits; risks and complications; and alternatives (and the risks and benefits of such alternatives ), prior to the procedure, with the patient (or the patient's legal cash posting representative). I attest that, if there was a reasonable possibility of needing a blood transfusion, the patient (or the patient's legal cash posting representative) was given the [facility] standardized written summary, pursuant to the [place] Blood Safety Act ([place] Health and Safety Code # 1645, as amended). I attest that I re-evaluated the patient just prior to the surgery and that there has been no change in the patient's H&P, except as documented below:none Paulo Spencer MD Jan 23, 2018 07:21
[2018-01-23] MEDS ORDERED: NeoSporin Gu Irrig 1ml Amp IRRIG ONE (07:46)
[2018-01-23] MEDS ORDERED: Bacitracin 50000 Units Vial ONE (07:46)
[2018-01-23] MEDS ORDERED: HYDROcodone/Acetamin 7.5/325 tab ORAL PRN (08:00)
[2018-01-23] MEDS ORDERED: Acetaminophen (Non formulary) 100 ML IV ONE (08:00)
[2018-01-23] MEDS ORDERED: oxyCODONE HCL/Acetaminophen 5/325mg ORAL PRN (08:00)
[2018-01-23] MEDS ORDERED: Metoclopramide 10mg/2ml Inj IVP PRN ×2 (08:00→15:15)
[2018-01-23] MEDS ORDERED: LORazepam Inj 2mg/ml 1ml IV PRN (08:00)
[2018-01-23] MEDS ORDERED: DiphenhydrAMINE 50mg/ml Inj IVP PRN ×2 (08:00→14:00)
[2018-01-23] MEDS ORDERED: Ketorolac 30mg Inj IV PRN ×2 (08:00)
[2018-01-23] MEDS ORDERED: LR 1000ml 1,000 ML IVLG SCH (08:00)
[2018-01-23] MEDS ORDERED: Midazolam 2mg/2ml Inj IVP PRN (08:00)
[2018-01-23] MEDS ORDERED: Meperidine 50mg/ml Inj(FOR RIGORS ONLY) IVP PRN (08:00)
[2018-01-23] MEDS ORDERED: Atropine Sulfate 0.4mg/ml inj IVP PRN (08:00)
[2018-01-23] MEDS ORDERED: Hydromorphone 0.5mg/0.5ml inj IVP PRN (08:00)
[2018-01-23] MEDS ORDERED: fentaNYL 100 mcg/2 mL IV PRN (08:00)
[2018-01-23] MEDS ORDERED: Norco 5mg/325mg tab ORAL PRN (08:00)
[2018-01-23] MEDS ORDERED: Sodium Chloride 10ml vial INJ ONE (08:13)
[2018-01-23] MEDS ORDERED: Lidocaine 1% MPF 10mg/ml 5ml ONE (08:13)
[2018-01-23] MEDS ORDERED: Ketamine 500mg Inj ONE (08:14)
--- NOTE | 2018-01-23 08:16 | Immediate Post-Op Evaluation ---
Immediate Post-Op Evalulation Immediate Post-Op Evalulation Procedure: Exploratory laparotomy, revision of Larsen continent pouch Date of Evaluation: Jan 23, 2018 Time of Evaluation: 14:08 IV Fluids: 2100 LR/NS Blood Products: 0 Estimated Blood Loss: 150 Urinary Output: 200 Blood Pressure Systolic: 154 Blood Pressure Diastolic: 101 Pulse Rate: 71 Respiratory Rate: 16 O2 Sat by Pulse Oximetry: 100 Temperature (Fahrenheit): 99.6 Pain Score (1-10): 2 Nausea: No Vomiting: No Complications 0 Patient Status: awake, reacts, patent, none Hydration Status: adequate Drug: Levoflaxcin 500 mg IV Given Within 1 Hr of Incision: Yes Time Given: 08:45 Manuel Escoto MD Jan 23, 2018 08:16
[2018-01-23] MEDS ORDERED: Zemuron 50mg/5ml Inj IV ONE (08:22)
[2018-01-23] MEDS ORDERED: Lidocaine 1% Plain 30 ml INJ ONE (10:24)
--- NOTE | 2018-01-23 12:32 | Diagnostic Imaging Report ---
APPROVED REPORT CPT Code: 05546 Present Symptoms Comments: Hx of DVT RIGHT LEG: Venous imaging reveals recanalized chronic thrombus in the common femoral vein, superficial femoral vein, and popliteal vein. The remainder of the deep venous system is within normal limits. There is no evidence of thrombus in the calf veins. Doppler indicates normal spontaneous flow within these segments. LEFT LEG: Venous imaging reveals recanalized chronic thrombus in the common femoral vein, superficial femoral vein, popliteal vein, and calf veins. The remainder of the deep venous system is within normal limits. Doppler indicates normal spontaneous flow within these segments. Venous insufficiency also noted in the greater saphenous vein at the proximal thigh and knee levels. The reflux lasted longer than 0.5 sec, bilaterally. There is no evidence of acute deep vein thrombosis.
[2018-01-23] MEDS ORDERED: fentaNYL 100 mcg/2 mL IV ONE (12:33)
[2018-01-23] MEDS ORDERED: Glycopyrrolate 0.2mg/ml 1ml Vial ONE (13:18)
[2018-01-23] MEDS ORDERED: Rate Change PCA 1 Each MISC PRN (14:00)
[2018-01-23] MEDS ORDERED: LORazepam 1mg tab SL PRN ×2 (14:00)
[2018-01-23] MEDS ORDERED: PCA Education Pamphlet MISC ONE (14:00)
[2018-01-23] MEDS ORDERED: Naloxone 0.4mg/ml Inj IVP PRN (14:00)
[2018-01-23] MEDS ORDERED: PCA Morphine 1mg/ml 30 ML IV PRN (14:00)
[2018-01-23] MEDS ORDERED: Morphine Sulfate 4mg/ml Inj (IV/IM USE ONLY) IV PRN (14:00)
[2018-01-23] MEDS ORDERED: Morphine Sulfate 2mg/ml Inj IVP PRN (14:00)
--- NOTE | 2018-01-23 14:11 | Brief Operative Note ---
Immediate Post Operative Note Operative Note Pre-op Diagnosis: chronic partial closed loop obstruction and malfunctioning Larsen Continent Ileostomy Procedure: resection of partial closed loop obstructed small bowel; dilation of Larsen continent ileostomy access segment Post-op Diagnosis: same Post-op Diagnosis: same as pre-op Findings: consistent w/pre-op dx studies Surgeon: renetta Business Reporting Developer: kermit Anesthesiologist: kash Specimen: yes - small bowel loop Complications: none Condition: stable Fluids: see anesthesia record Estimated Blood Loss: volume - 150cc Drains: other - 28 Avalos to Larsen Pouch Implant(s) used?: No Paulo Spencer MD Jan 23, 2018 14:11
[2018-01-23] MEDS ORDERED: Metoclopramide 10mg/2ml Inj ONE (15:08)
[2018-01-23] MEDS: D5 1/4NS w/KCl 20mEq 1,000 ML IV SCH (15:36)
[2018-01-23] MEDS ORDERED: Tubing IV Secondary IV ONE (15:40)
--- NOTE | 2018-01-23 18:06 | Cardiology Report ---
APPROVED REPORT EKG Measurement Heart [id number] Sinus bradycardia Otherwise normal ECG
--- NOTE | 2018-01-23 18:45 | Operative Note - Dictated ---
DATE OF OPERATION: 01/23/2018 SURGEON: Paulo pSencer M.D. ASSISTANCE SURGEON: Cedrick Rosenbaum M.D. ANESTHESIOLOGIST: Manuel Escoto M.D. TYPE OF ANESTHESIA: General endotracheal. PREOPERATIVE DIAGNOSES: 1. 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 2. Malfunctioning Larsen continent intestinal reservoir with difficulty with intubation. 3. Severe diffuse adhesions. 4. Hypercoagulable state with Factor S deficiency. 5. History of ulcerative colitis. 6. Status post multiple abdominal operations. 6.1. Total colectomy with ileoanal J-pouch performed in [place] in August 2004 6.2. Resection of infarcted J-pouch and creation of Barbara ileostomy in [place] in August 2004. 6.3. Creation of Larsen continent intestinal reservoir type of continent ileostomy in 2005. 6.4. Repair of ventral incisional hernia, parastomal hernia, and left inguinal hernia in October 2007. 6.5. Laparotomy with extensive lysis of adhesions and complex revision of Larsen continent ileostomy with enteroenterostomy and revision of the stoma in depth and revision of the valve, and repair of right inguinal hernia in 2009. 6.6. Laparotomy with extensive 2 hour plus lysis of adhesions and enteroenterostomy on 07/04/2017. POSTOPERATIVE DIAGNOSES: 1. 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 2. Malfunctioning Larsen continent intestinal reservoir with difficulty with intubation. 3. Severe diffuse adhesions. 4. Hypercoagulable state with Factor S deficiency. 5. History of ulcerative colitis. 6. Status post multiple abdominal operations. 6.1. Total colectomy with ileoanal J-pouch performed in [place] in August 2004 6.2. Resection of infarcted J-pouch and creation of Barbara ileostomy in [place] in August 2004. 6.3. Creation of Larsen continent intestinal reservoir type of continent ileostomy in 2005. 6.4. Repair of ventral incisional hernia, parastomal hernia, and left inguinal hernia in October 2007. 6.5. Laparotomy with extensive lysis of adhesions and complex revision of Larsen continent ileostomy with enteroenterostomy and revision of the stoma in depth and revision of the valve, and repair of right inguinal hernia in 2009. 6.6. Laparotomy with extensive 2 hour plus lysis of adhesions and enteroenterostomy on 07/04/2017. OPERATION PERFORMED: Laparotomy with resection of partially obstructing closed-loop, mid small bowel, left upper quadrant, and dilatation of Larsen continent ileostomy access segment. Duration of operation due to severity of adhesions: 4.5 hours. DESCRIPTION OF PROCEDURE: The patient was taken to the operating room and under general endotracheal anesthesia with sequential compression device stockings in place and Avalos catheter in place, the patient was prepped and draped in the usual fashion. He had a long midline incision from the xiphoid to pubis with the stoma of the Larsen continent ileostomy low in the right lower quadrant. The stoma was initially covered with Tegaderm. Previous midline incision was reopened from xiphoid to the umbilicus and a very prolonged tedious lysis of adhesions was undertaken. The stomach was deep in the left upper quadrant and could not be mobilized to do a decompression gastrostomy. Gradually utilizing sharp and blunt dissection and including use of cautery and the Thunderbeat electrosurgical device, the small bowel was liberated identifying the ligament of Treitz tracing past the jejunal loops to the partially obstructed dilated loop, which had previously been decompressed with an enteroenterostomy that did not succeed in creating decompression. The afferent and efferent limbs of the enterotomy were identified leading into this dilated loop. I was able to open the dilated loop and then resected it without compromising the enteroenterostomy using the AILEEN 100 green cartridge. The edges of the resected margin were well perfused and it was resected just above the level of the [id number] prior small bowel anastomosis. The bowel was closed using the AILEEN 100 green load and imbricating the staple line with 3-0 silk sutures. In view of the severity of adhesions and the 4-hour operation just to accomplish this resection, I was hesitant to go into the pelvis where the adhesions were more severe because of the fear of injury to the Larsen continent ileostomy with potential loss of the Larsen pouch and the patient ending up with a conventional ileostomy. I used a 28-Cymraes Avalos with lubrication inserted into the stoma and was able to dilate the tract into the pouch. The catheter was appropriately positioned in the pouch confirmed by irrigation and then sutured to the skin with two sutures of 2-0 silk and connected to a gravity drainage bag. The operative field was carefully inspected with a prolonged inspection and achieving hemostasis because of the need for anticoagulation postoperatively. The bowel loops were placed anatomically. The midline incision was closed in one layer with continuous 0 looped PDS, followed by closing the skin with shai. Throughout the procedure, the abdominal wall had been protected with antibiotic soaked lap sponges and a Bookwalter retractor was utilized. Estimated blood loss 150 mL. Final sponge and needle counts were correct. The patient tolerated the procedure well and left the operating room in stable condition. Paulo Spencer M.D. DR: KARMA JOB#: [id number] CC: [email or web address]
[2018-01-23] MEDS: PCA shift volume MISC SCH (19:18)
[2018-01-23] MEDS: Dyna-Hex 2% Top Sol 2oz TOPIC SCH (20:15)
[2018-01-24] MEDS: D5 1/4NS w/KCl 20mEq 1,000 ML IV SCH ×3 (00:05→17:38)
[2018-01-24] MEDS: PCA Morphine 1mg/ml 30 ML IV PRN ×2 (01:51→08:55)
[2018-01-24 04:00] VITALS: BP 134/73
[2018-01-24 06:02] LABS: BASOPHILS % (AUTO) 0.9 % (0.0-2.0); EOSINOPHILS % (AUTO) 0.1 % (0.0-3.0); HEMATOCRIT 41.4 % (42.0-52.0); HEMOGLOBIN 13.5 G/DL (14.2-18.0); LYMPHOCYTES % (AUTO) 9.1 % (20.0-45.0); MEAN CORPUSCULAR VOLUME 85 FL (80-99); MONOCYTES % (AUTO) 15.7 % (1.0-10.0); NEUTROPHILS % (AUTO) 74.1 % (45.0-75.0); PLATELET COUNT 174 K/UL (150-450); RED BLOOD COUNT 4.87 M/UL (4.70-6.10); RED CELL DISTRIBUTION WIDTH 12.8 % (11.6-14.8); WHITE BLOOD COUNT 5.2 K/UL (4.8-10.8)
[2018-01-24 06:12] LABS: ANION GAP 7 mmol/L (5-15); BLOOD UREA NITROGEN 9 mg/dL (7-18); CALCIUM 7.6 MG/DL (8.5-10.1); CARBON DIOXIDE 24 MMOL/L (21-32); CHLORIDE 104 MMOL/L (98-107); CREATININE 1.2 MG/DL (0.55-1.30); POTASSIUM 4.5 MMOL/L (3.5-5.1); SODIUM 135 MMOL/L (136-145)
[2018-01-24] MEDS: PCA shift volume MISC SCH ×2 (07:08→19:27)
[2018-01-24 08:00] VITALS: BP 107/75
[2018-01-24] MEDS ORDERED: Morphine Sulfate 2mg/ml Inj IVP PRN (08:00)
[2018-01-24] MEDS ORDERED: Morphine Sulfate 4mg/ml Inj (IV/IM USE ONLY) IV PRN (08:00)
[2018-01-24] MEDS ORDERED: DiphenhydrAMINE 50mg/ml Inj IVP PRN (08:00)
[2018-01-24] MEDS: Enoxaparin 40mg Inj SUBQ SCH (08:09)
[2018-01-24] MEDS ORDERED: Naloxone 0.4mg/ml Inj IVP PRN (08:11)
[2018-01-24] MEDS ORDERED: Rate Change PCA 1 Each MISC PRN (08:15)
--- NOTE | 2018-01-24 08:28 | General Progress Note ---
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 Atelectasis Ileus Hypercoaguable state Plan: NPO, mobilize continue olivera and SCDs allopurinol 300mg po daily for elevated uric acid and history of gout Venofer, folic acid(po) Lovenox 40mg SQ daily - given this AM f/u labs Paulo Spencer MD Jan 24, 2018 08:28
[2018-01-24 12:00] VITALS: BP 104/69
[2018-01-24] MEDS ORDERED: PCA Morphine 1mg/ml 30 ML IV PRN (14:00)
[2018-01-24 16:00] VITALS: BP 118/77
--- NOTE | 2018-01-24 16:08 | 48 Hour Post Anesthesia Eval ---
Post Anesthesia Evaluation Procedure: Exploratory laparotomy, revision of Larsen continent pouch Date of Evaluation: Jan 24, 2018 Time of Evaluation: 16:06 Blood Pressure Systolic: 116 0: 72 Pulse Rate: 74 Respiratory Rate: 20 Temperature (Fahrenheit): 97.5 O2 Sat by Pulse Oximetry: 98 Airway: patent Nausea: No Vomiting: No Pain Intensity: 3 Hydration Status: adequate Cardiopulmonary Status: stable Mental Status/LOC: patient returned to baseline Follow-up Care/Observations: n/a Post-Anesthesia Complications: none Follow-up care needed: N/A Chris Blood MD Jan 24, 2018 16:08
[2018-01-24] MEDS ORDERED: NS 500ML ONE (17:15)
[2018-01-24] MEDS ORDERED: NS Irrig 1000ml ONE (17:15)
[2018-01-24] MEDS ORDERED: Tubing IV Secondary IV ONE (17:15)
--- NOTE | 2018-01-24 17:22 | Pulmonology Progress Note ---
Assessment/Plan Assessment/Plan 1. Post op laparotomy, repair of ostomy. 2. 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 3. Status post vena cava filter. tolerated surgery well some muscular chest pain due to retractors in OR, resolved no SOB cont Lovenox until taking PO Subjective Respiratory: Denies: shortness of breath Cardiovascular: Reports: chest pain Allergies: Coded Allergies: PENICILLIN G (Verified Allergy, Mild, 09/07/09) Objective Last 24 Hour Vital Signs Date Time Temp Pulse Resp B/P (MAP) Pulse Ox O2 Delivery O2 Flow Rate FiO2 01/24/18 16:08 74 20 98 01/24/18 16:00 98.8 83 18 118/77 (91) 100 01/24/18 16:00 18 01/24/18 12:00 97.9 88 20 104/69 (81) 97 01/24/18 12:00 20 01/24/18 09:00 Room Air 01/24/18 08:55 20 01/24/18 08:00 98.0 78 20 107/75 (86) 94 01/24/18 08:00 20 01/24/18 04:00 18 01/24/18 04:00 97.8 76 18 134/73 (93) 97 01/24/18 01:51 18 01/24/18 01:49 18 01/24/18 00:00 18 01/23/18 21:00 Room Air 01/23/18 20:00 18 01/23/18 19:58 97.5 96 16 121/82 (95) 98 01/23/18 18:15 94 17 118/81 (93) 100 01/23/18 18:00 74 18 120/81 (94) 100 Intake and Output 01/23/18 01/24/18 19:00 07:00 Intake Total 400 ml 1200 ml Output Total 820 ml Balance 400 ml 380 ml IV Total 400 ml 1200 ml Output Urine Total 700 ml Other 120 ml General Appearance: no acute distress Respiratory/Chest: lungs clear, normal breath sounds Cardiovascular: normal rate Extremities: no edema Laboratory Tests 01/24/18 05:40: White Blood Count 5.2, Red Blood Count 4.87, Hemoglobin 13.5L, Hematocrit 41.4L , Mean Corpuscular Volume 85, Mean Corpuscular Hemoglobin 27.7, Mean Corpuscular Hemoglobin Concent 32.5, Red Cell Distribution Width 12.8, Platelet Count 174, Mean Platelet Volume 6.9, Neutrophils (%) (Auto) 74.1, Lymphocytes (% ) (Auto) 9.1L, Monocytes (%) (Auto) 15.7H, Eosinophils (%) (Auto) 0.1, Basophils (%) (Auto) 0.9, Sodium Level 135L, Potassium Level 4.5, Chloride Level 104, Carbon Dioxide Level 24, Anion Gap 7, Blood Urea Nitrogen 9, Creatinine 1.2, Estimat Glomerular Filtration Rate > 60, Glucose Level 154H, Calcium Level 7.6L Current Medications Medications (Trade) Dose Ordered Sig/Hernan Route PRN Reason Start Time Stop Time Status Last Admin Dose Admin Acetaminophen (Tylenol) 650 mg Q4H PRN ORAL Mild Pain/Temp > 100.2 01/23/18 14:15 02/22/18 14:14 Allopurinol (Allopurinol) 300 mg DAILY ORAL 01/24/18 09:00 02/23/18 08:59 01/24/18 08:07 Chlorhexidine Gluconate (Lala-Hex 2%) 1 applic DAILY@2000 TOPIC 01/22/18 20:00 02/21/18 19:59 01/23/18 20:15 Dextrose/ Electrolytes 1,000 ml @ 100 mls/hr Q10H IV 01/23/18 15:00 02/22/18 14:59 01/24/18 09:00 Diphenhydramine HCl (Benadryl) 25 mg Q6H PRN IVP Itching/Pruritis 01/24/18 08:00 01/26/18 07:59 Enoxaparin Sodium (Lovenox) 40 mg DAILY SUBQ 01/24/18 09:00 02/23/18 08:59 01/24/18 08:09 Folic Acid (Folate) 1 mg DAILY ORAL 01/24/18 09:00 02/23/18 08:59 01/24/18 08:53 Iron Sucrose 100 mg/Sodium Chloride 60 ml @ 240 mls/hr BEDTIME IV 01/24/18 21:00 01/28/18 21:14 Levofloxacin 100 ml @ 100 mls/hr Q24H IVPB 01/23/18 08:00 01/30/18 07:59 01/24/18 08:07 Lorazepam (Ativan) 1 mg HSPRN PRN SL Sleep 01/23/18 14:00 01/30/18 13:59 Lorazepam (Ativan) 1 mg Q4H PRN SL Muscle Spasm 01/23/18 14:00 01/30/18 13:59 Metronidazole 100 ml @ 100 mls/hr EVERY 6 HOURS IV 01/23/18 00:00 01/30/18 00:00 01/24/18 12:10 Miscellaneous Medication (DRUM DRIER Rate Change) 1 ea DAILY PRN MISC rate change 01/24/18 08:15 01/26/18 08:14 Miscellaneous Medication (DRUM DRIER shift volume) 1 ea Q12HR@0700,1900 MISC 01/24/18 19:00 01/26/18 18:59 Morphine Sulfate 30 ml @ 0 mls/hr Q24H PRN IV For Pain 01/24/18 02:00 01/26/18 01:59 01/24/18 08:55 Morphine Sulfate (Morphine Sulfate) 2 mg Q2H PRN IVP Moderate Pain (Pain Scale 4-6) 01/24/18 08:00 01/26/18 07:59 Morphine Sulfate (Morphine Sulfate) 4 mg Q3H PRN IV Severe Pain (Pain Scale 7-10) 01/24/18 08:00 01/26/18 07:59 Naloxone HCl (Narcan) 0.1 mg Q1M PRN IVP RR<10/min OR SBP<90 mmHg 01/24/18 08:11 01/26/18 08:09 Ondansetron HCl (Zofran) 4 mg Q4H PRN IVP Nausea & Vomiting 01/22/18 10:30 02/21/18 10:29 01/24/18 07:17 Ondansetron HCl (Zofran) 4 mg Q4H PRN IVP Nausea & Vomiting 01/23/18 14:00 02/22/18 13:59 Prochlorperazine (Compazine) 10 mg Q6H PRN IVP Nausea & Vomiting 01/23/18 14:15 02/22/18 14:14 01/24/18 16:29 Temazepam (Restoril) 7.5 mg HSPRN PRN ORAL Insomnia 01/22/18 16:00 01/29/18 15:59 Raul Roche MD Jan 24, 2018 17:22
[2018-01-24 20:00] VITALS: BP 109/70
[2018-01-24] MEDS: Dyna-Hex 2% Top Sol 2oz TOPIC SCH (20:51)
[2018-01-24] MEDS: Iron Sucrose 100 MG in NS 55 ML IV SCH (20:51)
[2018-01-25] MEDS: PCA Morphine 1mg/ml 30 ML IV PRN (00:30)
[2018-01-25 04:00] VITALS: BP 91/68
[2018-01-25] MEDS: D5 1/4NS w/KCl 20mEq 1,000 ML IV SCH (04:07)
[2018-01-25 06:35] LABS: BASOPHILS % (AUTO) 0.8 % (0.0-2.0); EOSINOPHILS % (AUTO) 0.5 % (0.0-3.0); HEMATOCRIT 35.1 % (42.0-52.0); HEMOGLOBIN 11.4 G/DL (14.2-18.0); LYMPHOCYTES % (AUTO) 8.8 % (20.0-45.0); MEAN CORPUSCULAR VOLUME 85 FL (80-99); MONOCYTES % (AUTO) 15.9 % (1.0-10.0); NEUTROPHILS % (AUTO) 73.9 % (45.0-75.0); PLATELET COUNT 142 K/UL (150-450); RED BLOOD COUNT 4.11 M/UL (4.70-6.10); RED CELL DISTRIBUTION WIDTH 12.8 % (11.6-14.8); WHITE BLOOD COUNT 3.7 K/UL (4.8-10.8)
[2018-01-25 06:37] LABS: ALANINE AMINOTRANSFERASE 19 U/L (12-78); ALBUMIN/GLOBULIN RATIO 0.5 (1.0-2.7); ALKALINE PHOSPHATASE 62 U/L (46-116); ANION GAP 5 mmol/L (5-15); ASPARTATE AMINO TRANSFERASE 13 U/L (15-37); BILIRUBIN,TOTAL 0.5 MG/DL (0.2-1.0); BLOOD UREA NITROGEN 7 mg/dL (7-18); CALCIUM 7.6 MG/DL (8.5-10.1); CARBON DIOXIDE 25 MMOL/L (21-32); CHLORIDE 102 MMOL/L (98-107); CREATININE 1.1 MG/DL (0.55-1.30); POTASSIUM 4.3 MMOL/L (3.5-5.1); SODIUM 132 MMOL/L (136-145)
[2018-01-25] MEDS: PCA shift volume MISC SCH ×2 (07:09→19:00)
[2018-01-25 08:14] VITALS: BP 116/74
[2018-01-25] MEDS ORDERED: Naloxone 0.4mg/ml Inj IVP PRN (08:14)
[2018-01-25] MEDS ORDERED: Rate Change PCA 1 Each MISC PRN (08:15)
--- NOTE | 2018-01-25 08:26 | General Progress Note ---
Progress Note Progress Note AVSS Nausea controlled with compazine IV. Ambulated x 2 yesterday Abdomen soft, mild distention, incision clean Urine 1280 BCIR ileo - nil - this AM small amount enteric fluid WBC 3700 Hgb 11.4 Platelets 142,000 Na 132 BUN 7 Cr 1.1 Albumin 2.0 Imp. Ileus Extensive 4.5 hours lysis of adhesion small bowel resection surgery Decreased serum albumin (borderline on admission pre-op) Plan: NPO TPN Lovenox QD f/u labs change IV fluids to Paulo Campbell MD Jan 25, 2018 08:26
[2018-01-25] MEDS ORDERED: DiphenhydrAMINE 50mg/ml Inj IVP PRN (08:30)
[2018-01-25] MEDS ORDERED: PCA Morphine 1mg/ml 30 ML IV PRN (08:30)
[2018-01-25] MEDS ORDERED: Morphine Sulfate 4mg/ml Inj (IV/IM USE ONLY) IV PRN (08:30)
[2018-01-25] MEDS ORDERED: Morphine Sulfate 2mg/ml Inj IVP PRN (08:30)
--- NOTE | 2018-01-25 08:38 | Pulmonology Progress Note ---
Assessment/Plan Assessment/Plan 1. Post op laparotomy, repair of ostomy. 2. 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 3. Status post vena cava filter. doing well post op Na low; IVF adjusted no SOB cont Lovenox until taking PO Subjective Constitutional: Reports: no symptoms Respiratory: Denies: shortness of breath Cardiovascular: Denies: chest pain Gastrointestinal/Abdominal: Reports: nausea Allergies: Coded Allergies: PENICILLIN G (Verified Allergy, Mild, 09/07/09) Objective Last 24 Hour Vital Signs Date Time Temp Pulse Resp B/P (MAP) Pulse Ox O2 Delivery O2 Flow Rate FiO2 01/25/18 08:15 17 01/25/18 08:14 97.3 85 20 116/74 (88) 97 01/25/18 04:00 17 01/25/18 04:00 99.5 83 17 91/68 (76) 94 01/25/18 00:00 18 01/24/18 21:00 Room Air 01/24/18 20:00 17 01/24/18 20:00 98.5 90 17 109/70 (83) 95 01/24/18 16:08 74 20 98 01/24/18 16:00 98.8 83 18 118/77 (91) 100 01/24/18 16:00 18 01/24/18 12:00 97.9 88 20 104/69 (81) 97 01/24/18 12:00 20 01/24/18 09:00 Room Air 01/24/18 08:55 20 Intake and Output 01/24/18 01/25/18 19:00 07:00 Intake Total 1400 ml 1100 ml Output Total 580 ml 700 ml Balance 820 ml 400 ml IV Total 1400 ml 1100 ml Output Urine Total 580 ml 700 ml Other 0 ml 0 ml General Appearance: no acute distress HEENT: atraumatic Respiratory/Chest: lungs clear Cardiovascular: normal rate Extremities: no edema Laboratory Tests 01/25/18 05:30: White Blood Count 3.7L, Red Blood Count 4.11L, Hemoglobin 11.4L, Hematocrit 35.1L, Mean Corpuscular Volume 85, Mean Corpuscular Hemoglobin 27.7, Mean Corpuscular Hemoglobin Concent 32.5, Red Cell Distribution Width 12.8, Platelet Count 142L, Mean Platelet Volume 6.5, Neutrophils (%) (Auto) 73.9, Lymphocytes ( %) (Auto) 8.8L, Monocytes (%) (Auto) 15.9H, Eosinophils (%) (Auto) 0.5, Basophils (%) (Auto) 0.8, Sodium Level 132L, Potassium Level 4.3, Chloride Level 102, Carbon Dioxide Level 25, Anion Gap 5, Blood Urea Nitrogen 7, Creatinine 1.1, Estimat Glomerular Filtration Rate > 60, Glucose Level 161H, Calcium Level 7.6L, Total Bilirubin 0.5, Aspartate Amino Transf (AST/SGOT) 13L, Alanine Aminotransferase (ALT/SGPT) 19, Alkaline Phosphatase 62, Total Protein 5.7L, Albumin 2.0L, Globulin 3.7, Albumin/Globulin Ratio 0.5L Current Medications Medications (Trade) Dose Ordered Sig/Hernan Route PRN Reason Start Time Stop Time Status Last Admin Dose Admin Acetaminophen (Tylenol) 650 mg Q4H PRN ORAL Mild Pain/Temp > 100.2 01/23/18 14:15 02/22/18 14:14 Allopurinol (Allopurinol) 300 mg DAILY ORAL 01/24/18 09:00 02/23/18 08:59 01/24/18 08:07 Amino Acids/ Electrolytes/ Dextrose 2,000 ml @ 83 mls/hr Q24H IV 01/25/18 21:00 02/24/18 20:59 UNV Chlorhexidine Gluconate (Lala-Hex 2%) 1 applic DAILY@2000 TOPIC 01/22/18 20:00 02/21/18 19:59 01/24/18 20:51 Dextrose 1,000 ml @ 0 mls/hr Q24H PRN IV PN interrupted or unavailable 01/25/18 08:30 02/24/18 08:29 UNV Dextrose (Dextrose 50%) 25 ml Q30M PRN IV Hypoglycemia 01/25/18 08:30 02/24/18 08:29 Dextrose (Dextrose 50%) 50 ml Q30M PRN IV Hypoglycemia 01/25/18 08:30 02/24/18 08:29 Diphenhydramine HCl (Benadryl) 25 mg Q6H PRN IVP Itching/Pruritis 01/25/18 08:30 01/27/18 08:29 Enoxaparin Sodium (Lovenox) 40 mg DAILY SUBQ 01/24/18 09:00 02/23/18 08:59 01/24/18 08:09 Fat Emulsion Intravenous 250 ml @ 10.4 mls/hr Q24H IV 01/25/18 21:00 02/24/18 20:59 UNV Folic Acid (Folate) 1 mg DAILY ORAL 01/24/18 09:00 02/23/18 08:59 01/24/18 08:53 Insulin Aspart (NovoLOG) Q6HR SUBQ 01/26/18 00:00 02/25/18 00:00 Iron Sucrose 100 mg/Sodium Chloride 60 ml @ 240 mls/hr BEDTIME IV 01/24/18 21:00 01/28/18 21:14 01/24/18 20:51 Levofloxacin 100 ml @ 100 mls/hr Q24H IVPB 01/23/18 08:00 01/30/18 07:59 01/24/18 08:07 Lorazepam (Ativan) 1 mg HSPRN PRN SL Sleep 01/23/18 14:00 01/30/18 13:59 Lorazepam (Ativan) 1 mg Q4H PRN SL Muscle Spasm 01/23/18 14:00 01/30/18 13:59 Metronidazole 100 ml @ 100 mls/hr EVERY 6 HOURS IV 01/23/18 00:00 01/30/18 00:00 01/25/18 05:32 Miscellaneous Medication (COMPUTER EQUIPMENT INSTALLER Rate Change) 1 ea DAILY PRN MISC rate change 01/25/18 08:15 01/27/18 08:14 Miscellaneous Medication (COMPUTER EQUIPMENT INSTALLER shift volume) 1 ea Q12HR@0700,1900 MISC 01/25/18 19:00 01/27/18 18:59 Morphine Sulfate 30 ml @ 0 mls/hr Q24H PRN IV For Pain 01/25/18 08:30 01/27/18 08:29 Morphine Sulfate (Morphine Sulfate) 2 mg Q2H PRN IVP Moderate Pain (Pain Scale 4-6) 01/25/18 08:30 01/27/18 08:29 Morphine Sulfate (Morphine Sulfate) 4 mg Q3H PRN IV Severe Pain (Pain Scale 7-10) 01/25/18 08:30 01/27/18 08:29 Naloxone HCl (Narcan) 0.1 mg Q1M PRN IVP RR<10/min OR SBP<90 mmHg 01/25/18 08:14 01/27/18 08:11 Ondansetron HCl (Zofran) 4 mg Q4H PRN IVP Nausea & Vomiting 01/22/18 10:30 02/21/18 10:29 01/24/18 07:17 Ondansetron HCl (Zofran) 4 mg Q4H PRN IVP Nausea & Vomiting 01/23/18 14:00 02/22/18 13:59 Prochlorperazine (Compazine) 10 mg Q6H PRN IVP Nausea & Vomiting 01/23/18 14:15 02/22/18 14:14 01/24/18 16:29 Sodium Chloride 1,000 ml @ 100 mls/hr Q10H IV 01/25/18 09:00 02/24/18 08:59 Temazepam (Restoril) 7.5 mg HSPRN PRN ORAL Insomnia 01/22/18 16:00 01/29/18 15:59 01/24/18 22:03 Raul Roche MD Jan 25, 2018 08:38
[2018-01-25] MEDS: NS w/KCl 20mEq 1,000 ML IV SCH ×3 (09:00→21:00)
[2018-01-25] MEDS: Enoxaparin 40mg Inj SUBQ SCH (09:02)
[2018-01-25] MEDS ORDERED: Dextrose 10% 1,000 ML IV PRN (09:22)
[2018-01-25] MEDS ORDERED: Tubing IV Secondary IV ONE (11:17)
[2018-01-25] MEDS ORDERED: NS Irrig 1000ml ONE (11:17)
[2018-01-25 12:00] VITALS: BP 105/69
[2018-01-25 16:42] VITALS: BP 114/78
[2018-01-25 20:00] VITALS: BP 107/69
[2018-01-25] MEDS ORDERED: Fat Emulsion Iv 20% 250 ML IV SCH (21:00)
[2018-01-25] MEDS: Dyna-Hex 2% Top Sol 2oz TOPIC SCH (21:51)
[2018-01-25] MEDS: Iron Sucrose 100 MG in NS 55 ML IV SCH (21:52)
[2018-01-25] MEDS: Fat Emulsion Iv 20% 240 ML in Tpn 1,800 ML IV SCH (21:53)
[2018-01-26] VITALS: BP 117/78
[2018-01-26] MEDS: NovoLOG Insulin Flexpen SUBQ SCH ×5 (00:24→23:52)
[2018-01-26 04:00] VITALS: BP 117/77
[2018-01-26] MEDS: PCA shift volume MISC SCH ×2 (07:00→19:00)
[2018-01-26 07:42] LABS: HEMATOCRIT 35.5 % (42.0-52.0); HEMOGLOBIN 11.9 G/DL (14.2-18.0); MEAN CORPUSCULAR VOLUME 85 FL (80-99); PLATELET COUNT 172 K/UL (150-450); RED BLOOD COUNT 4.19 M/UL (4.70-6.10); RED CELL DISTRIBUTION WIDTH 13.3 % (11.6-14.8); WHITE BLOOD COUNT 2.2 K/UL (4.8-10.8)
[2018-01-26 07:47] LABS: ANION GAP 4 mmol/L (5-15); BLOOD UREA NITROGEN 9 mg/dL (7-18); CALCIUM 8.1 MG/DL (8.5-10.1); CARBON DIOXIDE 28 MMOL/L (21-32); CHLORIDE 104 MMOL/L (98-107); CREATININE 1.1 MG/DL (0.55-1.30); POTASSIUM 4.2 MMOL/L (3.5-5.1); SODIUM 136 MMOL/L (136-145)
[2018-01-26 08:00] VITALS: BP 129/79
[2018-01-26] MEDS ORDERED: Naloxone 0.4mg/ml Inj IVP PRN (08:29)
[2018-01-26] MEDS ORDERED: Rate Change PCA 1 Each MISC PRN (08:30)
[2018-01-26] MEDS ORDERED: PCA Morphine 1mg/ml 30 ML IV PRN (08:30)
--- NOTE | 2018-01-26 08:41 | General Progress Note ---
Progress Note Progress Note AVSS Feeling well - pain left costal margin and left flank - likely from retraction during extensive surgery. Ambulating well BID Abdomen soft, flat, incision clean Urine 3100 BCIR ileo 370 enteric WBC down 2200 Hgb 11.9 up Platelets up 172,000 BMP - wnl Imp. Ileus Leukopenia ? etiology Hypercoaguable state Plan: Continue npo and TPN Maintain continuous drainage of Larsen Pouch D/C Flagyl - ? cause of decreased WBC Continue Lovenox f/u labs - may need Hematology consultation Paulo Spencer MD Jan 26, 2018 08:41
[2018-01-26] MEDS: Enoxaparin 40mg Inj SUBQ SCH (09:07)
[2018-01-26] MEDS ORDERED: Morphine Sulfate 2mg/ml Inj IVP PRN (10:30)
[2018-01-26] MEDS ORDERED: Morphine Sulfate 4mg/ml Inj (IV/IM USE ONLY) IV PRN (11:30)
[2018-01-26 12:00] VITALS: BP 126/84
[2018-01-26] MEDS ORDERED: DiphenhydrAMINE 50mg/ml Inj IVP PRN (14:30)
[2018-01-26 16:00] VITALS: BP 118/79
[2018-01-26 20:00] VITALS: BP 120/76
--- NOTE | 2018-01-26 20:20 | Pulmonology Progress Note ---
Assessment/Plan Assessment/Plan Assessment/Plan 1. Post op laparotomy, repair of ostomy. 2. 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 3. Status post vena cava filter. doing well post op On TPN Not passing gas no SOB cont Lovenox until taking PO Subjective Constitutional: Reports: no symptoms Respiratory: Denies: shortness of breath Cardiovascular: Denies: chest pain Gastrointestinal/Abdominal: Reports: nausea Allergies: Coded Allergies: PENICILLIN G (Verified Allergy, Mild, 09/07/09) Objective Vital Signs Noted General Appearance: no acute distress HEENT: atraumatic Respiratory/Chest: lungs clear Cardiovascular: normal rate Extremities: no edema Laboratory Tests 01/25/18 05:30: White Blood Count 3.7L, Red Blood Count 4.11L, Hemoglobin 11.4L, Hematocrit 35.1L, Mean Corpuscular Volume 85, Mean Corpuscular Hemoglobin 27.7, Mean Corpuscular Hemoglobin Concent 32.5, Red Cell Distribution Width 12.8, Platelet Count 142L, Mean Platelet Volume 6.5, Neutrophils (%) (Auto) 73.9, Lymphocytes ( %) (Auto) 8.8L, Monocytes (%) (Auto) 15.9H, Eosinophils (%) (Auto) 0.5, Basophils (%) (Auto) 0.8, Sodium Level 132L, Potassium Level 4.3, Chloride Level 102, Carbon Dioxide Level 25, Anion Gap 5, Blood Urea Nitrogen 7, Creatinine 1.1, Estimat Glomerular Filtration Rate > 60, Glucose Level 161H, Calcium Level 7.6L, Total Bilirubin 0.5, Aspartate Amino Transf (AST/SGOT) 13L, Alanine Aminotransferase (ALT/SGPT) 19, Alkaline Phosphatase 62, Total Protein 5.7L, Albumin 2.0L, Globulin 3.7, Albumin/Globulin Ratio 0.5L Current Medications Medications (Trade) Dose Ordered Sig/Hernan Route PRN Reason Start Time Stop Time Status Last Admin Dose Admin Acetaminophen (Tylenol) 650 mg Q4H PRN ORAL Mild Pain/Temp > 100.2 01/23/18 14:15 02/22/18 14:14 Allopurinol (Allopurinol) 300 mg DAILY ORAL 01/24/18 09:00 02/23/18 08:59 01/24/18 08:07 Amino Acids/ Electrolytes/ Dextrose 2,000 ml @ 83 mls/hr Q24H IV 01/25/18 21:00 02/24/18 20:59 UNV Chlorhexidine Gluconate (Lala-Hex 2%) 1 applic DAILY@2000 TOPIC 01/22/18 20:00 02/21/18 19:59 01/24/18 20:51 Dextrose 1,000 ml @ 0 mls/hr Q24H PRN IV PN interrupted or unavailable 01/25/18 08:30 02/24/18 08:29 UNV Dextrose (Dextrose 50%) 25 ml Q30M PRN IV Hypoglycemia 01/25/18 08:30 02/24/18 08:29 Dextrose (Dextrose 50%) 50 ml Q30M PRN IV Hypoglycemia 01/25/18 08:30 02/24/18 08:29 Diphenhydramine HCl (Benadryl) 25 mg Q6H PRN IVP Itching/Pruritis 01/25/18 08:30 01/27/18 08:29 Enoxaparin Sodium (Lovenox) 40 mg DAILY SUBQ 01/24/18 09:00 02/23/18 08:59 01/24/18 08:09 Fat Emulsion Intravenous 250 ml @ 10.4 mls/hr Q24H IV 01/25/18 21:00 02/24/18 20:59 UNV Folic Acid (Folate) 1 mg DAILY ORAL 01/24/18 09:00 02/23/18 08:59 01/24/18 08:53 Insulin Aspart (NovoLOG) Q6HR SUBQ 01/26/18 00:00 02/25/18 00:00 Iron Sucrose 100 mg/Sodium Chloride 60 ml @ 240 mls/hr BEDTIME IV 01/24/18 21:00 01/28/18 21:14 01/24/18 20:51 Levofloxacin 100 ml @ 100 mls/hr Q24H IVPB 01/23/18 08:00 01/30/18 07:59 01/24/18 08:07 Lorazepam (Ativan) 1 mg HSPRN PRN SL Sleep 01/23/18 14:00 01/30/18 13:59 Lorazepam (Ativan) 1 mg Q4H PRN SL Muscle Spasm 01/23/18 14:00 01/30/18 13:59 Metronidazole 100 ml @ 100 mls/hr EVERY 6 HOURS IV 01/23/18 00:00 01/30/18 00:00 01/25/18 05:32 Miscellaneous Medication (PROGRAM DIRECTOR/AIR PERSONALITY Rate Change) 1 ea DAILY PRN MISC rate change 01/25/18 08:15 01/27/18 08:14 Miscellaneous Medication (PROGRAM DIRECTOR/AIR PERSONALITY shift volume) 1 ea Q12HR@0700,1900 MISC 01/25/18 19:00 01/27/18 18:59 Morphine Sulfate 30 ml @ 0 mls/hr Q24H PRN IV For Pain 01/25/18 08:30 01/27/18 08:29 Morphine Sulfate (Morphine Sulfate) 2 mg Q2H PRN IVP Moderate Pain (Pain Scale 4-6) 01/25/18 08:30 01/27/18 08:29 Morphine Sulfate (Morphine Sulfate) 4 mg Q3H PRN IV Severe Pain (Pain Scale 7-10) 01/25/18 08:30 01/27/18 08:29 Naloxone HCl (Narcan) 0.1 mg Q1M PRN IVP RR<10/min OR SBP<90 mmHg 01/25/18 08:14 01/27/18 08:11 Ondansetron HCl (Zofran) 4 mg Q4H PRN IVP Nausea & Vomiting 01/22/18 10:30 02/21/18 10:29 01/24/18 07:17 Ondansetron HCl (Zofran) 4 mg Q4H PRN IVP Nausea & Vomiting 01/23/18 14:00 02/22/18 13:59 Prochlorperazine (Compazine) 10 mg Q6H PRN IVP Nausea & Vomiting 01/23/18 14:15 02/22/18 14:14 01/24/18 16:29 Sodium Chloride 1,000 ml @ 100 mls/hr Q10H IV 01/25/18 09:00 02/24/18 08:59 Temazepam (Restoril) 7.5 mg HSPRN PRN ORAL Insomnia 01/22/18 16:00 01/29/18 15:59 01/24/18 22:03 Subjective ROS Limited/Unobtainable: No Allergies: Coded Allergies: PENICILLIN G (Verified Allergy, Mild, 09/07/09) Objective Last 24 Hour Vital Signs Date Time Temp Pulse Resp B/P (MAP) Pulse Ox O2 Delivery O2 Flow Rate FiO2 01/26/18 16:00 16 01/26/18 16:00 97.6 80 16 118/79 (92) 100 01/26/18 12:00 18 01/26/18 12:00 98.3 82 16 126/84 (98) 100 01/26/18 09:00 Room Air 01/26/18 08:00 98.9 76 23 129/79 (96) 99 01/26/18 08:00 18 01/26/18 04:00 99.2 92 18 117/77 (90) 96 01/26/18 04:00 18 01/26/18 00:00 98.9 81 19 117/78 (91) 96 01/26/18 00:00 17 01/25/18 21:00 Room Air Intake and Output 01/25/18 01/26/18 19:00 07:00 Intake Total 85 ml 932.5 ml Output Total 1190 ml 2280 ml Balance -1105 ml -1347.5 ml IV Total 85 ml 932.5 ml Output Urine Total 1000 ml 2100 ml Other 190 ml 180 ml Laboratory Tests 01/26/18 07:30: White Blood Count 2.2L, Red Blood Count 4.19L, Hemoglobin 11.9L, Hematocrit 35.5L, Mean Corpuscular Volume 85, Mean Corpuscular Hemoglobin 28.4, Mean Corpuscular Hemoglobin Concent 33.5, Red Cell Distribution Width 13.3, Platelet Count 172, Mean Platelet Volume 6.1L, Neutrophils (%) (Auto) , Lymphocytes (%) ( Auto) , Monocytes (%) (Auto) , Eosinophils (%) (Auto) , Basophils (%) (Auto) , Differential Total Cells Counted 100, Neutrophils % (Manual) 67, Lymphocytes % ( Manual) 17L, Monocytes % (Manual) 12H, Eosinophils % (Manual) 4H, Basophils % ( Manual) 0, Band Neutrophils 0, Platelet Estimate Adequate, Platelet Morphology Normal, Hypochromasia 1+, Anisocytosis 1+, Sodium Level 136, Potassium Level 4.2 , Chloride Level 104, Carbon Dioxide Level 28, Anion Gap 4L, Blood Urea Nitrogen 9, Creatinine 1.1, Estimat Glomerular Filtration Rate > 60, Glucose Level 167H, Calcium Level 8.1L Current Medications Medications (Trade) Dose Ordered Sig/Hernan Route PRN Reason Start Time Stop Time Status Last Admin Dose Admin Acetaminophen (Tylenol) 650 mg Q4H PRN ORAL Mild Pain/Temp > 100.2 01/23/18 14:15 02/22/18 14:14 Allopurinol (Allopurinol) 300 mg DAILY ORAL 01/24/18 09:00 02/23/18 08:59 01/26/18 09:05 Chlorhexidine Gluconate (Lala-Hex 2%) 1 applic DAILY@2000 TOPIC 01/22/18 20:00 02/21/18 19:59 01/25/18 21:51 Dextrose 1,000 ml @ 0 mls/hr Q24H PRN IV PN interrupted or unavailable 01/25/18 09:22 02/24/18 09:21 Dextrose (Dextrose 50%) 25 ml Q30M PRN IV Hypoglycemia 01/25/18 08:30 02/24/18 08:29 Dextrose (Dextrose 50%) 50 ml Q30M PRN IV Hypoglycemia 01/25/18 08:30 02/24/18 08:29 Diphenhydramine HCl (Benadryl) 25 mg Q6H PRN IVP Itching/Pruritis 01/26/18 14:30 01/28/18 08:29 Enoxaparin Sodium (Lovenox) 40 mg DAILY SUBQ 01/24/18 09:00 02/23/18 08:59 01/26/18 09:07 Fat Emulsion Intravenous 240 ml/Amino Acids/ Electrolytes/ Dextrose 2,040 ml @ 84.66 mls/ hr Q24H IV 01/25/18 21:00 02/24/18 20:59 01/25/18 21:53 Folic Acid (Folate) 1 mg DAILY ORAL 01/24/18 09:00 02/23/18 08:59 01/26/18 09:05 Insulin Aspart (NovoLOG) Q6HR SUBQ 01/26/18 00:00 02/25/18 00:00 01/26/18 18:02 Iron Sucrose 100 mg/Sodium Chloride 60 ml @ 240 mls/hr BEDTIME IV 01/24/18 21:00 01/28/18 21:14 01/25/18 21:52 Levofloxacin 100 ml @ 100 mls/hr Q24H IVPB 01/23/18 08:00 01/30/18 07:59 01/26/18 09:05 Lorazepam (Ativan) 1 mg HSPRN PRN SL Sleep 01/23/18 14:00 01/30/18 13:59 Lorazepam (Ativan) 1 mg Q4H PRN SL Muscle Spasm 01/23/18 14:00 01/30/18 13:59 Miscellaneous Medication (PROGRAM DIRECTOR/AIR PERSONALITY Rate Change) 1 ea DAILY PRN MISC rate change 01/26/18 08:30 01/28/18 08:29 Miscellaneous Medication (PROGRAM DIRECTOR/AIR PERSONALITY shift volume) 1 ea Q12HR@0700,1900 MISC 01/26/18 19:00 01/28/18 18:59 01/26/18 19:00 Morphine Sulfate 30 ml @ 0 mls/hr Q24H PRN IV For Pain 01/26/18 08:30 01/27/18 08:29 01/26/18 13:21 Morphine Sulfate 30 ml @ 0 mls/hr Q24H PRN IV For Pain 01/27/18 08:30 01/28/18 08:29 Morphine Sulfate (Morphine Sulfate) 2 mg Q2H PRN IVP Moderate Pain (Pain Scale 4-6) 01/26/18 10:30 01/28/18 08:29 Morphine Sulfate (Morphine Sulfate) 4 mg Q3H PRN IV Severe Pain (Pain Scale 7-10) 01/26/18 11:30 01/28/18 08:29 Naloxone HCl (Narcan) 0.1 mg Q1M PRN IVP RR<10/min OR SBP<90 mmHg 01/26/18 08:29 01/28/18 08:25 Ondansetron HCl (Zofran) 4 mg Q4H PRN IVP Nausea & Vomiting 01/23/18 14:00 02/22/18 13:59 Prochlorperazine (Compazine) 10 mg Q6H PRN IVP Nausea & Vomiting 01/23/18 14:15 02/22/18 14:14 01/26/18 11:00 Sodium Chloride 1,000 ml @ 20 mls/hr Q24H IV 01/25/18 21:00 02/24/18 20:59 01/25/18 21:00 Temazepam (Restoril) 7.5 mg HSPRN PRN ORAL Insomnia 01/22/18 16:00 01/29/18 15:59 01/26/18 00:37 Damon Betts MD Jan 26, 2018 20:20
[2018-01-26] MEDS: NS w/KCl 20mEq 1,000 ML IV SCH (21:00)
[2018-01-26] MEDS: Iron Sucrose 100 MG in NS 55 ML IV SCH (21:05)
[2018-01-26] MEDS: Dyna-Hex 2% Top Sol 2oz TOPIC SCH (21:06)
[2018-01-26] MEDS: Fat Emulsion Iv 20% 240 ML in Tpn 1,800 ML IV SCH (21:08)
[2018-01-27] VITALS: BP 111/71
[2018-01-27 04:00] VITALS: BP 109/72
[2018-01-27 05:49] LABS: HEMATOCRIT 35.1 % (42.0-52.0); HEMOGLOBIN 11.8 G/DL (14.2-18.0); MEAN CORPUSCULAR VOLUME 84 FL (80-99); PLATELET COUNT 193 K/UL (150-450); RED BLOOD COUNT 4.17 M/UL (4.70-6.10); RED CELL DISTRIBUTION WIDTH 13.3 % (11.6-14.8); WHITE BLOOD COUNT 2.4 K/UL (4.8-10.8)
[2018-01-27 06:05] LABS: ANION GAP 6 mmol/L (5-15); BLOOD UREA NITROGEN 9 mg/dL (7-18); CALCIUM 7.9 MG/DL (8.5-10.1); CARBON DIOXIDE 27 MMOL/L (21-32); CHLORIDE 105 MMOL/L (98-107); POTASSIUM 3.9 MMOL/L (3.5-5.1); SODIUM 137 MMOL/L (136-145)
[2018-01-27] MEDS: NovoLOG Insulin Flexpen SUBQ SCH ×3 (06:12→18:29)
[2018-01-27] MEDS: PCA shift volume MISC SCH ×2 (07:08→19:00)
[2018-01-27 08:00] VITALS: BP 143/86
[2018-01-27] MEDS ORDERED: PCA Morphine 1mg/ml 30 ML IV PRN ×3 (08:30→17:00)
[2018-01-27] MEDS: Enoxaparin 40mg Inj SUBQ SCH (09:21)
[2018-01-27] MEDS ORDERED: Naloxone 0.4mg/ml Inj IVP PRN (10:02)
--- NOTE | 2018-01-27 10:06 | General Progress Note ---
Progress Note Progress Note AVSS Had some cramping overnight with increased BCIR ileo output Abdomen soft, non-distended, healing nicely Urine 2750 BCIR ileo 300 WBC up 2400 Hgb stable 11.8 on Lovenox BMP - wnl Imp. Ileus, slowly resolving after extensive 4 hour lysis of adhesions/small bowel resection Plan:continue npo, TPN, continuous drainage of Larsen pouch f/u labs remove urinary Avalos catheter d/c Paulo Godinez MD Jan 27, 2018 10:06
[2018-01-27] MEDS ORDERED: Rate Change PCA 1 Each MISC PRN (10:15)
[2018-01-27] MEDS ORDERED: Morphine Sulfate 2mg/ml Inj IVP PRN (10:30)
[2018-01-27] MEDS ORDERED: Morphine Sulfate 4mg/ml Inj (IV/IM USE ONLY) IV PRN (11:30)
[2018-01-27 12:00] VITALS: BP 143/84
--- NOTE | 2018-01-27 12:12 | Pulmonology Progress Note ---
Assessment/Plan Assessment/Plan Assessment/Plan 1. Post op laparotomy, repair of ostomy. 2. 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 3. Status post vena cava filter. doing well post op On TPN Not passing gas no SOB cont Lovenox until taking PO Subjective Constitutional: Reports: no symptoms Respiratory: Denies: shortness of breath Cardiovascular: Denies: chest pain Gastrointestinal/Abdominal: Reports: nausea Allergies: Coded Allergies: PENICILLIN G (Verified Allergy, Mild, 09/07/09) Objective Vital Signs Noted General Appearance: no acute distress HEENT: atraumatic Respiratory/Chest: lungs clear Cardiovascular: normal rate Extremities: no edema Laboratory Tests 01/25/18 05:30: White Blood Count 3.7L, Red Blood Count 4.11L, Hemoglobin 11.4L, Hematocrit 35.1L, Mean Corpuscular Volume 85, Mean Corpuscular Hemoglobin 27.7, Mean Corpuscular Hemoglobin Concent 32.5, Red Cell Distribution Width 12.8, Platelet Count 142L, Mean Platelet Volume 6.5, Neutrophils (%) (Auto) 73.9, Lymphocytes ( %) (Auto) 8.8L, Monocytes (%) (Auto) 15.9H, Eosinophils (%) (Auto) 0.5, Basophils (%) (Auto) 0.8, Sodium Level 132L, Potassium Level 4.3, Chloride Level 102, Carbon Dioxide Level 25, Anion Gap 5, Blood Urea Nitrogen 7, Creatinine 1.1, Estimat Glomerular Filtration Rate > 60, Glucose Level 161H, Calcium Level 7.6L, Total Bilirubin 0.5, Aspartate Amino Transf (AST/SGOT) 13L, Alanine Aminotransferase (ALT/SGPT) 19, Alkaline Phosphatase 62, Total Protein 5.7L, Albumin 2.0L, Globulin 3.7, Albumin/Globulin Ratio 0.5L Current Medications Medications (Trade) Dose Ordered Sig/Hernan Route PRN Reason Start Time Stop Time Status Last Admin Dose Admin Acetaminophen (Tylenol) 650 mg Q4H PRN ORAL Mild Pain/Temp > 100.2 01/23/18 14:15 02/22/18 14:14 Allopurinol (Allopurinol) 300 mg DAILY ORAL 01/24/18 09:00 02/23/18 08:59 01/24/18 08:07 Amino Acids/ Electrolytes/ Dextrose 2,000 ml @ 83 mls/hr Q24H IV 01/25/18 21:00 02/24/18 20:59 UNV Chlorhexidine Gluconate (Lala-Hex 2%) 1 applic DAILY@2000 TOPIC 01/22/18 20:00 02/21/18 19:59 01/24/18 20:51 Dextrose 1,000 ml @ 0 mls/hr Q24H PRN IV PN interrupted or unavailable 01/25/18 08:30 02/24/18 08:29 UNV Dextrose (Dextrose 50%) 25 ml Q30M PRN IV Hypoglycemia 01/25/18 08:30 02/24/18 08:29 Dextrose (Dextrose 50%) 50 ml Q30M PRN IV Hypoglycemia 01/25/18 08:30 02/24/18 08:29 Diphenhydramine HCl (Benadryl) 25 mg Q6H PRN IVP Itching/Pruritis 01/25/18 08:30 01/27/18 08:29 Enoxaparin Sodium (Lovenox) 40 mg DAILY SUBQ 01/24/18 09:00 02/23/18 08:59 01/24/18 08:09 Fat Emulsion Intravenous 250 ml @ 10.4 mls/hr Q24H IV 01/25/18 21:00 02/24/18 20:59 UNV Folic Acid (Folate) 1 mg DAILY ORAL 01/24/18 09:00 02/23/18 08:59 01/24/18 08:53 Insulin Aspart (NovoLOG) Q6HR SUBQ 01/26/18 00:00 02/25/18 00:00 Iron Sucrose 100 mg/Sodium Chloride 60 ml @ 240 mls/hr BEDTIME IV 01/24/18 21:00 01/28/18 21:14 01/24/18 20:51 Levofloxacin 100 ml @ 100 mls/hr Q24H IVPB 01/23/18 08:00 01/30/18 07:59 01/24/18 08:07 Lorazepam (Ativan) 1 mg HSPRN PRN SL Sleep 01/23/18 14:00 01/30/18 13:59 Lorazepam (Ativan) 1 mg Q4H PRN SL Muscle Spasm 01/23/18 14:00 01/30/18 13:59 Metronidazole 100 ml @ 100 mls/hr EVERY 6 HOURS IV 01/23/18 00:00 01/30/18 00:00 01/25/18 05:32 Miscellaneous Medication (FIELD OPERATIONS SUPERVISOR Rate Change) 1 ea DAILY PRN MISC rate change 01/25/18 08:15 01/27/18 08:14 Miscellaneous Medication (FIELD OPERATIONS SUPERVISOR shift volume) 1 ea Q12HR@0700,1900 MISC 01/25/18 19:00 01/27/18 18:59 Morphine Sulfate 30 ml @ 0 mls/hr Q24H PRN IV For Pain 01/25/18 08:30 01/27/18 08:29 Morphine Sulfate (Morphine Sulfate) 2 mg Q2H PRN IVP Moderate Pain (Pain Scale 4-6) 01/25/18 08:30 01/27/18 08:29 Morphine Sulfate (Morphine Sulfate) 4 mg Q3H PRN IV Severe Pain (Pain Scale 7-10) 01/25/18 08:30 01/27/18 08:29 Naloxone HCl (Narcan) 0.1 mg Q1M PRN IVP RR<10/min OR SBP<90 mmHg 01/25/18 08:14 01/27/18 08:11 Ondansetron HCl (Zofran) 4 mg Q4H PRN IVP Nausea & Vomiting 01/22/18 10:30 02/21/18 10:29 01/24/18 07:17 Ondansetron HCl (Zofran) 4 mg Q4H PRN IVP Nausea & Vomiting 01/23/18 14:00 02/22/18 13:59 Prochlorperazine (Compazine) 10 mg Q6H PRN IVP Nausea & Vomiting 01/23/18 14:15 02/22/18 14:14 01/24/18 16:29 Sodium Chloride 1,000 ml @ 100 mls/hr Q10H IV 01/25/18 09:00 02/24/18 08:59 Temazepam (Restoril) 7.5 mg HSPRN PRN ORAL Insomnia 01/22/18 16:00 01/29/18 15:59 01/24/18 22:03 Subjective ROS Limited/Unobtainable: No Allergies: Coded Allergies: PENICILLIN G (Verified Allergy, Mild, 09/07/09) Objective Last 24 Hour Vital Signs Date Time Temp Pulse Resp B/P (MAP) Pulse Ox O2 Delivery O2 Flow Rate FiO2 01/27/18 09:00 Room Air 01/27/18 08:00 99.0 68 18 143/86 (105) 96 01/27/18 08:00 18 01/27/18 04:00 17 01/27/18 04:00 98.9 86 18 109/72 (84) 95 01/27/18 00:00 99.0 76 18 111/71 (84) 98 01/27/18 00:00 18 01/26/18 21:00 Room Air 01/26/18 20:00 98.6 74 18 120/76 (91) 98 01/26/18 20:00 18 01/26/18 16:00 16 01/26/18 16:00 97.6 80 16 118/79 (92) 100 Intake and Output 01/26/18 01/27/18 19:00 07:00 Intake Total 1215.2 ml 1150.6 ml Output Total 1370 ml 1680 ml Balance -154.8 ml -529.4 ml IV Total 1215.2 ml 1150.6 ml Output Urine Total 1350 ml 1400 ml Other 20 ml 280 ml Laboratory Tests 01/27/18 05:05: White Blood Count 2.4L, Red Blood Count 4.17L, Hemoglobin 11.8L, Hematocrit 35.1L, Mean Corpuscular Volume 84, Mean Corpuscular Hemoglobin 28.3, Mean Corpuscular Hemoglobin Concent 33.6, Red Cell Distribution Width 13.3, Platelet Count 193, Mean Platelet Volume 6.1L, Neutrophils (%) (Auto) , Lymphocytes (%) ( Auto) , Monocytes (%) (Auto) , Eosinophils (%) (Auto) , Basophils (%) (Auto) , Differential Total Cells Counted 100, Neutrophils % (Manual) 60, Lymphocytes % ( Manual) 21, Monocytes % (Manual) 12H, Eosinophils % (Manual) 7H, Basophils % ( Manual) 0, Band Neutrophils 0, Platelet Estimate Adequate, Platelet Morphology Normal, Hypochromasia 1+, Sodium Level 137, Potassium Level 3.9, Chloride Level 105, Carbon Dioxide Level 27, Anion Gap 6, Blood Urea Nitrogen 9, Creatinine 1.0 , Estimat Glomerular Filtration Rate > 60, Glucose Level 181H, Calcium Level 7.9L Current Medications Medications (Trade) Dose Ordered Sig/Hrenan Route PRN Reason Start Time Stop Time Status Last Admin Dose Admin Acetaminophen (Tylenol) 650 mg Q4H PRN ORAL Mild Pain/Temp > 100.2 01/23/18 14:15 02/22/18 14:14 Allopurinol (Allopurinol) 300 mg DAILY ORAL 01/24/18 09:00 02/23/18 08:59 01/27/18 09:20 Chlorhexidine Gluconate (Lala-Hex 2%) 1 applic DAILY@2000 TOPIC 01/22/18 20:00 02/21/18 19:59 01/26/18 21:06 Dextrose 1,000 ml @ 0 mls/hr Q24H PRN IV PN interrupted or unavailable 01/25/18 09:22 02/24/18 09:21 Dextrose (Dextrose 50%) 25 ml Q30M PRN IV Hypoglycemia 01/25/18 08:30 02/24/18 08:29 Dextrose (Dextrose 50%) 50 ml Q30M PRN IV Hypoglycemia 01/25/18 08:30 02/24/18 08:29 Diphenhydramine HCl (Benadryl) 25 mg Q6H PRN IVP Itching/Pruritis 01/27/18 14:30 01/29/18 08:29 Enoxaparin Sodium (Lovenox) 40 mg DAILY SUBQ 01/24/18 09:00 02/23/18 08:59 01/27/18 09:21 Fat Emulsion Intravenous 240 ml/Amino Acids/ Electrolytes/ Dextrose 2,040 ml @ 84.66 mls/ hr Q24H IV 01/25/18 21:00 02/24/18 20:59 01/26/18 21:08 Folic Acid (Folate) 1 mg DAILY ORAL 01/24/18 09:00 02/23/18 08:59 01/27/18 09:20 Insulin Aspart (NovoLOG) Q6HR SUBQ 01/26/18 00:00 02/25/18 00:00 01/27/18 06:12 Iron Sucrose 100 mg/Sodium Chloride 60 ml @ 240 mls/hr BEDTIME IV 01/24/18 21:00 01/28/18 21:14 01/26/18 21:05 Lorazepam (Ativan) 1 mg HSPRN PRN SL Sleep 01/23/18 14:00 01/30/18 13:59 Lorazepam (Ativan) 1 mg Q4H PRN SL Muscle Spasm 01/23/18 14:00 01/30/18 13:59 Miscellaneous Medication (FIELD OPERATIONS SUPERVISOR Rate Change) 1 ea DAILY PRN MISC rate change 01/27/18 10:15 01/29/18 10:14 Miscellaneous Medication (FIELD OPERATIONS SUPERVISOR shift volume) 1 ea Q12HR@0700,1900 MISC 01/27/18 19:00 01/29/18 18:59 Morphine Sulfate 30 ml @ 0 mls/hr Q24H PRN IV For Pain 01/28/18 08:30 01/29/18 08:29 Morphine Sulfate (Morphine Sulfate) 2 mg Q2H PRN IVP Moderate Pain (Pain Scale 4-6) 01/27/18 10:30 01/29/18 08:29 Morphine Sulfate (Morphine Sulfate) 4 mg Q3H PRN IV Severe Pain (Pain Scale 7-10) 01/27/18 11:30 01/29/18 08:29 Naloxone HCl (Narcan) 0.1 mg Q1M PRN IVP RR<10/min OR SBP<90 mmHg 01/27/18 10:02 01/29/18 09:57 Ondansetron HCl (Zofran) 4 mg Q4H PRN IVP Nausea & Vomiting 01/23/18 14:00 02/22/18 13:59 Prochlorperazine (Compazine) 10 mg Q6H PRN IVP Nausea & Vomiting 01/23/18 14:15 02/22/18 14:14 01/26/18 11:00 Sodium Chloride 1,000 ml @ 20 mls/hr Q24H IV 01/25/18 21:00 02/24/18 20:59 01/25/18 21:00 Temazepam (Restoril) 7.5 mg HSPRN PRN ORAL Insomnia 01/27/18 10:15 02/03/18 10:14 Damon Betts MD Jan 27, 2018 12:12
[2018-01-27] MEDS ORDERED: DiphenhydrAMINE 50mg/ml Inj IVP PRN (14:30)
[2018-01-27 16:00] VITALS: BP 121/78
[2018-01-27 20:00] VITALS: BP 133/73
[2018-01-27] MEDS: Iron Sucrose 100 MG in NS 55 ML IV SCH (20:52)
[2018-01-27] MEDS: NS w/KCl 20mEq 1,000 ML IV SCH (20:52)
[2018-01-27] MEDS: Dyna-Hex 2% Top Sol 2oz TOPIC SCH (20:52)
[2018-01-27] MEDS: Fat Emulsion Iv 20% 240 ML in Tpn 1,800 ML IV SCH (20:54)
[2018-01-28] VITALS: BP 134/80
[2018-01-28] MEDS: NovoLOG Insulin Flexpen SUBQ SCH ×4 (01:10→18:03)
[2018-01-28 04:00] VITALS: BP 132/88
[2018-01-28 05:53] LABS: HEMATOCRIT 34.7 % (42.0-52.0); HEMOGLOBIN 11.7 G/DL (14.2-18.0); MEAN CORPUSCULAR VOLUME 85 FL (80-99); PLATELET COUNT 198 K/UL (150-450); RED BLOOD COUNT 4.09 M/UL (4.70-6.10); RED CELL DISTRIBUTION WIDTH 13.2 % (11.6-14.8); WHITE BLOOD COUNT 3.2 K/UL (4.8-10.8)
[2018-01-28 06:01] LABS: ALANINE AMINOTRANSFERASE 15 U/L (12-78); ALBUMIN/GLOBULIN RATIO 0.5 (1.0-2.7); ALKALINE PHOSPHATASE 73 U/L (46-116); ANION GAP 8 mmol/L (5-15); ASPARTATE AMINO TRANSFERASE 15 U/L (15-37); BILIRUBIN,TOTAL 0.3 MG/DL (0.2-1.0); BLOOD UREA NITROGEN 11 mg/dL (7-18); CARBON DIOXIDE 24 MMOL/L (21-32); CHLORIDE 105 MMOL/L (98-107); PHOSPHORUS 2.6 MG/DL (2.5-4.9); POTASSIUM 4.2 MMOL/L (3.5-5.1); SODIUM 137 MMOL/L (136-145)
[2018-01-28] MEDS: PCA shift volume MISC SCH ×2 (07:12→19:04)
[2018-01-28 08:00] VITALS: BP 128/90
[2018-01-28] MEDS: Enoxaparin 40mg Inj SUBQ SCH (08:44)
[2018-01-28] MEDS ORDERED: LORazepam 1mg tab SL PRN ×2 (09:15→09:30)
--- NOTE | 2018-01-28 09:21 | General Progress Note ---
Progress Note Progress Note AVSS Feels okay - better energy. Abdomen soft, healing nicely Urine 1635 BCIR ileo 180 WBC up 3200 Hgb stable 11.7 Mg low 1.7 Albumin 2.0 Imp. slowly resolving ileus Plan: continue npo and TPN supplemental magnesium IV Paulo Spencer MD Jan 28, 2018 09:21
[2018-01-28] MEDS ORDERED: Morphine Sulfate 2mg/ml Inj IVP PRN (09:30)
[2018-01-28] MEDS ORDERED: Morphine Sulfate 4mg/ml Inj (IV/IM USE ONLY) IV PRN (09:30)
[2018-01-28] MEDS ORDERED: Naloxone 0.4mg/ml Inj IVP PRN (09:30)
[2018-01-28] MEDS ORDERED: Rate Change PCA 1 Each MISC PRN (09:30)
[2018-01-28] MEDS ORDERED: DiphenhydrAMINE 50mg/ml Inj IVP PRN (09:30)
[2018-01-28] MEDS: PCA Morphine 1mg/ml 30 ML IV PRN (09:40)
[2018-01-28] MEDS ORDERED: HYDROcodone/Acetamin 10/325 tab ORAL PRN (11:30)
--- NOTE | 2018-01-28 11:34 | Pulmonology Progress Note ---
Assessment/Plan Assessment/Plan 1. Post op laparotomy, repair of ostomy. 2. 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 3. Status post vena cava filter. doing well, ambulating labs stable no SOB or leg pain cont Lovenox until taking PO then resume Xarelto Subjective Constitutional: Denies: fever Respiratory: Denies: dry cough Allergies: Coded Allergies: PENICILLIN G (Verified Allergy, Mild, 09/07/09) Objective Last 24 Hour Vital Signs Date Time Temp Pulse Resp B/P (MAP) Pulse Ox O2 Delivery O2 Flow Rate FiO2 01/28/18 10:10 98.2 01/28/18 09:00 Room Air 01/28/18 08:00 98.2 75 18 128/90 (103) 01/28/18 08:00 18 01/28/18 04:00 17 01/28/18 04:00 98.4 60 17 132/88 (103) 98 01/28/18 00:00 98.2 60 18 134/80 (98) 98 01/28/18 00:00 18 01/27/18 21:00 Room Air 01/27/18 20:00 17 01/27/18 20:00 97.4 66 18 133/73 (93) 96 01/27/18 18:33 97.5 01/27/18 16:00 18 01/27/18 16:00 97.5 69 18 121/78 (92) 96 01/27/18 12:00 18 01/27/18 12:00 98.0 79 18 143/84 (103) 96 Intake and Output 01/27/18 01/28/18 18:59 06:59 Intake Total 1150.6 ml 941.4 ml Output Total 1120 ml 690 ml Balance 30.6 ml 251.4 ml IV Total 1150.6 ml 941.4 ml Output Urine Total 1000 ml 630 ml Other 120 ml 60 ml # Voids 3 4 General Appearance: no acute distress HEENT: atraumatic Respiratory/Chest: lungs clear Cardiovascular: normal rate Extremities: no edema Laboratory Tests 01/28/18 05:20: White Blood Count 3.2L, Red Blood Count 4.09L, Hemoglobin 11.7L, Hematocrit 34.7L, Mean Corpuscular Volume 85, Mean Corpuscular Hemoglobin 28.5, Mean Corpuscular Hemoglobin Concent 33.6, Red Cell Distribution Width 13.2, Platelet Count 198, Mean Platelet Volume 6.2L, Neutrophils (%) (Auto) , Lymphocytes (%) ( Auto) , Monocytes (%) (Auto) , Eosinophils (%) (Auto) , Basophils (%) (Auto) , Differential Total Cells Counted 100, Neutrophils % (Manual) 59, Lymphocytes % ( Manual) 18L, Monocytes % (Manual) 15H, Eosinophils % (Manual) 8H, Basophils % ( Manual) 0, Band Neutrophils 0, Platelet Estimate Adequate, Platelet Morphology Normal, Red Blood Cell Morphology Normal, Sodium Level 137, Potassium Level 4.2 , Chloride Level 105, Carbon Dioxide Level 24, Anion Gap 8, Blood Urea Nitrogen 11, Creatinine 1.0, Estimat Glomerular Filtration Rate > 60, Glucose Level 180H , Calcium Level 8.0L, Phosphorus Level 2.6, Magnesium Level 1.7L, Total Bilirubin 0.3, Aspartate Amino Transf (AST/SGOT) 15, Alanine Aminotransferase ( ALT/SGPT) 15, Alkaline Phosphatase 73, Total Protein 6.0L, Albumin 2.0L, Globulin 4.0, Albumin/Globulin Ratio 0.5L Current Medications Medications (Trade) Dose Ordered Sig/Hernan Route PRN Reason Start Time Stop Time Status Last Admin Dose Admin Acetaminophen (Tylenol) 650 mg Q4H PRN ORAL Mild Pain/Temp > 100.2 01/23/18 14:15 02/22/18 14:14 Acetaminophen/ Hydrocodone Bitart (Latta 10/325) 1 tab Q4H PRN ORAL For Pain 01/28/18 11:30 02/04/18 11:29 UNV Allopurinol (Allopurinol) 300 mg DAILY ORAL 01/24/18 09:00 02/23/18 08:59 01/28/18 08:38 Chlorhexidine Gluconate (Lala-Hex 2%) 1 applic DAILY@2000 TOPIC 01/22/18 20:00 02/21/18 19:59 01/27/18 20:52 Dextrose 1,000 ml @ 0 mls/hr Q24H PRN IV PN interrupted or unavailable 01/25/18 09:22 02/24/18 09:21 Dextrose (Dextrose 50%) 25 ml Q30M PRN IV Hypoglycemia 01/25/18 08:30 02/24/18 08:29 Dextrose (Dextrose 50%) 50 ml Q30M PRN IV Hypoglycemia 01/25/18 08:30 02/24/18 08:29 Diphenhydramine HCl (Benadryl) 25 mg Q6H PRN IVP Itching/Pruritis 01/28/18 09:30 01/30/18 09:29 Enoxaparin Sodium (Lovenox) 40 mg DAILY SUBQ 01/24/18 09:00 02/23/18 08:59 01/28/18 08:44 Fat Emulsion Intravenous 240 ml/Amino Acids/ Electrolytes/ Dextrose 2,040 ml @ 84.66 mls/ hr Q24H IV 01/25/18 21:00 02/24/18 20:59 01/27/18 20:54 Folic Acid (Folate) 1 mg DAILY ORAL 01/24/18 09:00 02/23/18 08:59 01/28/18 08:38 Insulin Aspart (NovoLOG) Q6HR SUBQ 01/26/18 00:00 02/25/18 00:00 01/28/18 06:43 Iron Sucrose 100 mg/Sodium Chloride 60 ml @ 240 mls/hr BEDTIME IV 01/24/18 21:00 01/28/18 21:14 01/27/18 20:52 Lorazepam (Ativan) 1 mg HSPRN PRN SL Sleep 01/28/18 09:15 02/04/18 09:14 Lorazepam (Ativan) 1 mg Q4H PRN SL Muscle Spasm 01/28/18 09:30 02/04/18 09:29 Magnesium Sulfate 100 ml @ 100 mls/hr Q1H IVPB 01/28/18 10:00 01/28/18 13:59 01/28/18 10:41 Miscellaneous Medication (EDUCATION SITE MANAGER Rate Change) 1 ea DAILY PRN MISC rate change 01/28/18 09:30 01/30/18 09:29 Miscellaneous Medication (EDUCATION SITE MANAGER shift volume) 1 ea Q12HR@0700,1900 MISC 01/28/18 19:00 01/30/18 18:59 Morphine Sulfate 30 ml @ 0 mls/hr Q24H PRN IV For Pain 01/28/18 09:30 01/30/18 09:29 01/28/18 09:40 Morphine Sulfate (Morphine Sulfate) 2 mg Q2H PRN IVP Moderate Pain (Pain Scale 4-6) 01/28/18 09:30 01/30/18 09:29 Morphine Sulfate (Morphine Sulfate) 4 mg Q3H PRN IV Severe Pain (Pain Scale 7-10) 01/28/18 09:30 01/30/18 09:29 Naloxone HCl (Narcan) 0.1 mg Q1M PRN IVP RR<10/min OR SBP<90 mmHg 01/28/18 09:30 01/30/18 09:29 Ondansetron HCl (Zofran) 4 mg Q4H PRN IVP Nausea & Vomiting 01/23/18 14:00 02/22/18 13:59 Prochlorperazine (Compazine) 10 mg Q6H PRN IVP Nausea & Vomiting 01/23/18 14:15 02/22/18 14:14 01/26/18 11:00 Sodium Chloride 1,000 ml @ 20 mls/hr Q24H IV 01/25/18 21:00 02/24/18 20:59 01/27/18 20:52 Temazepam (Restoril) 7.5 mg HSPRN PRN ORAL Insomnia 01/27/18 10:15 02/03/18 10:14 01/28/18 04:07 Raul Roche MD Jan 28, 2018 11:33
[2018-01-28 12:00] VITALS: BP 120/77
[2018-01-28 16:00] VITALS: BP 124/82
[2018-01-28 20:00] VITALS: BP 119/92
[2018-01-28] MEDS: Dyna-Hex 2% Top Sol 2oz TOPIC SCH (20:51)
[2018-01-28] MEDS: Iron Sucrose 100 MG in NS 55 ML IV SCH (20:52)
[2018-01-28] MEDS: NS w/KCl 20mEq 1,000 ML IV SCH (20:52)
[2018-01-28] MEDS: Fat Emulsion Iv 20% 240 ML in Tpn 1,800 ML IV SCH (20:54)
[2018-01-29] VITALS: BP 123/76
[2018-01-29] MEDS: NovoLOG Insulin Flexpen SUBQ SCH ×5 (00:11→23:54)
[2018-01-29] MEDS: PCA Morphine 1mg/ml 30 ML IV PRN (01:19)
[2018-01-29 04:00] VITALS: BP 132/85
[2018-01-29 04:32] LABS: HEMATOCRIT 37.1 % (42.0-52.0); HEMOGLOBIN 12.3 G/DL (14.2-18.0); MEAN CORPUSCULAR VOLUME 85 FL (80-99); PLATELET COUNT 247 K/UL (150-450); RED BLOOD COUNT 4.38 M/UL (4.70-6.10); RED CELL DISTRIBUTION WIDTH 13.3 % (11.6-14.8); WHITE BLOOD COUNT 3.4 K/UL (4.8-10.8)
[2018-01-29 04:49] LABS: ANION GAP 5 mmol/L (5-15); BLOOD UREA NITROGEN 12 mg/dL (7-18); CALCIUM 8.3 MG/DL (8.5-10.1); CARBON DIOXIDE 27 MMOL/L (21-32); CHLORIDE 104 MMOL/L (98-107); POTASSIUM 4.4 MMOL/L (3.5-5.1); SODIUM 136 MMOL/L (136-145)
[2018-01-29] MEDS: PCA shift volume MISC SCH (07:17)
[2018-01-29 08:00] VITALS: BP 136/90
--- NOTE | 2018-01-29 08:23 | General Progress Note ---
Progress Note Progress Note AVSS Doing well overall. Ambulating ad evette Abdomen soft, healing nicely Urine 2450 BCIR ileo 295 WBC up 3400 BMP-wnl Imp. Ileus resolving Plan: Clear liquid diet d/c MOTION PICTURE NARRATOR and supplemental IV fluids Percocet po prn pain continue TPN and continuous drainage of Paulo Montes MD Jan 29, 2018 08:23
[2018-01-29] MEDS ORDERED: Lidocaine HCl 2% Jelly 6ml Tube TOPIC PRN (08:30)
[2018-01-29] MEDS: Enoxaparin 40mg Inj SUBQ SCH (08:39)
--- NOTE | 2018-01-29 11:23 | Pulmonology Progress Note ---
Assessment/Plan Assessment/Plan 1. Post op laparotomy, repair of ostomy. 2. 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 3. Status post vena cava filter. doing well, ambulating taking PO now dc lovenox rx Xarelto no SOB or leg pain Subjective Respiratory: Denies: dry cough, shortness of breath, pleuritic pain Allergies: Coded Allergies: PENICILLIN G (Verified Allergy, Mild, 09/07/09) Objective Last 24 Hour Vital Signs Date Time Temp Pulse Resp B/P (MAP) Pulse Ox O2 Delivery O2 Flow Rate FiO2 01/29/18 09:00 Room Air 01/29/18 08:00 97.7 82 20 136/90 (105) 97 01/29/18 08:00 18 01/29/18 04:00 98.5 62 18 132/85 (101) 97 01/29/18 04:00 17 01/29/18 00:00 97.6 65 18 123/76 (92) 97 01/29/18 00:00 17 01/28/18 21:00 Room Air 01/28/18 20:00 18 01/28/18 20:00 97.6 77 18 119/92 (101) 97 01/28/18 18:22 98.5 01/28/18 16:00 20 01/28/18 16:00 98.5 71 20 124/82 (96) 96 01/28/18 12:00 20 01/28/18 12:00 98.6 73 20 120/77 (91) 93 Intake and Output 01/28/18 01/29/18 19:00 07:00 Intake Total 1355.2 ml 1150.6 ml Output Total 1825 ml 920 ml Balance -469.8 ml 230.6 ml IV Total 1355.2 ml 1150.6 ml Output Urine Total 1700 ml 750 ml Other 125 ml 170 ml # Voids 8 4 General Appearance: no acute distress HEENT: atraumatic Respiratory/Chest: lungs clear Cardiovascular: normal rate Extremities: no edema Laboratory Tests 01/29/18 04:12: White Blood Count 3.4L, Red Blood Count 4.38L, Hemoglobin 12.3L, Hematocrit 37.1L, Mean Corpuscular Volume 85, Mean Corpuscular Hemoglobin 28.2, Mean Corpuscular Hemoglobin Concent 33.3, Red Cell Distribution Width 13.3, Platelet Count 247, Mean Platelet Volume 6.2L, Neutrophils (%) (Auto) , Lymphocytes (%) ( Auto) , Monocytes (%) (Auto) , Eosinophils (%) (Auto) , Basophils (%) (Auto) , Sodium Level 136, Potassium Level 4.4, Chloride Level 104, Carbon Dioxide Level 27, Anion Gap 5, Blood Urea Nitrogen 12, Creatinine 1.0, Estimat Glomerular Filtration Rate > 60, Glucose Level 187H, Calcium Level 8.3L, Magnesium Level 2.0 Current Medications Medications (Trade) Dose Ordered Sig/Hernan Route PRN Reason Start Time Stop Time Status Last Admin Dose Admin Acetaminophen (Tylenol) 650 mg Q4H PRN ORAL Mild Pain/Temp > 100.2 01/23/18 14:15 02/22/18 14:14 Allopurinol (Allopurinol) 300 mg DAILY ORAL 01/24/18 09:00 02/23/18 08:59 01/29/18 08:36 Chlorhexidine Gluconate (Lala-Hex 2%) 1 applic DAILY@2000 TOPIC 01/22/18 20:00 02/21/18 19:59 01/28/18 20:51 Dextrose 1,000 ml @ 0 mls/hr Q24H PRN IV PN interrupted or unavailable 01/25/18 09:22 02/24/18 09:21 Dextrose (Dextrose 50%) 25 ml Q30M PRN IV Hypoglycemia 01/25/18 08:30 02/24/18 08:29 Dextrose (Dextrose 50%) 50 ml Q30M PRN IV Hypoglycemia 01/25/18 08:30 02/24/18 08:29 Enoxaparin Sodium (Lovenox) 40 mg DAILY SUBQ 01/24/18 09:00 02/23/18 08:59 01/29/18 08:39 Fat Emulsion Intravenous 240 ml/Amino Acids/ Electrolytes/ Dextrose 2,040 ml @ 84.66 mls/ hr Q24H IV 01/25/18 21:00 02/24/18 20:59 01/28/18 20:54 Folic Acid (Folate) 1 mg DAILY ORAL 01/24/18 09:00 02/23/18 08:59 01/29/18 08:36 Insulin Aspart (NovoLOG) Q6HR SUBQ 01/26/18 00:00 02/25/18 00:00 01/29/18 06:29 Lidocaine HCl (Xylocaine Jelly 2%) 1 applic Q4H PRN TOPIC For Pain 01/29/18 08:30 02/28/18 08:29 Lorazepam (Ativan) 1 mg HSPRN PRN SL Sleep 01/28/18 09:15 02/04/18 09:14 Lorazepam (Ativan) 1 mg Q4H PRN SL Muscle Spasm 01/28/18 09:30 02/04/18 09:29 Ondansetron HCl (Zofran) 4 mg Q4H PRN IVP Nausea & Vomiting 01/23/18 14:00 02/22/18 13:59 Oxycodone/ Acetaminophen (Percocet 5-325) 1 tab Q4H PRN ORAL Moderate Pain (Pain Scale 4-6) 01/29/18 08:30 02/05/18 08:29 Prochlorperazine (Compazine) 10 mg Q6H PRN IVP Nausea & Vomiting 01/23/18 14:15 02/22/18 14:14 01/26/18 11:00 Temazepam (Restoril) 7.5 mg HSPRN PRN ORAL Insomnia 01/27/18 10:15 02/03/18 10:14 01/29/18 00:12 Raul Rohce MD Jan 29, 2018 11:23
[2018-01-29] MEDS ORDERED: Xarelto 10mg tab ORAL SCH (11:51)
[2018-01-29 12:00] VITALS: BP 129/84
[2018-01-29 15:45] VITALS: BP 129/93
[2018-01-29] MEDS: oxyCODONE HCL/Acetaminophen 5/325mg ORAL PRN ×2 (17:43→23:59)
[2018-01-29 20:00] VITALS: BP 133/84
[2018-01-29] MEDS: Fat Emulsion Iv 20% 240 ML in Tpn 1,800 ML IV SCH (20:08)
[2018-01-29] MEDS: Dyna-Hex 2% Top Sol 2oz TOPIC SCH (20:09)
[2018-01-30] VITALS: BP 108/75
[2018-01-30] MEDS: NovoLOG Insulin Flexpen SUBQ SCH ×3 (06:34→17:50)
[2018-01-30 08:00] VITALS: BP 128/85
--- NOTE | 2018-01-30 09:04 | General Progress Note ---
Progress Note Progress Note AVSS Now on Zarelto and off Lovenox. doing well with clear liquid diet Abdomen soft, healing nicely Urine 2825 BCIR ileo 1490 Imp. Improved Plan: Full liquid diet Continue TPN f/u labs Paulo Spencer MD Jan 30, 2018 09:04
[2018-01-30 12:00] VITALS: BP 128/82
[2018-01-30] MEDS: oxyCODONE HCL/Acetaminophen 5/325mg ORAL PRN ×2 (15:26→22:05)
[2018-01-30 16:00] VITALS: BP 125/83
[2018-01-30] MEDS: Xarelto 10mg tab ORAL SCH (16:26)
[2018-01-30] MEDS ORDERED: Tubing IV Secondary IV ONE (16:56)
[2018-01-30 20:00] VITALS: BP 127/89
[2018-01-30] MEDS: Dyna-Hex 2% Top Sol 2oz TOPIC SCH (20:16)
[2018-01-30] MEDS: Fat Emulsion Iv 20% 240 ML in Tpn 1,800 ML IV SCH (20:17)
[2018-01-31] VITALS: BP 127/92
[2018-01-31] MEDS: NovoLOG Insulin Flexpen SUBQ SCH ×4 (00:06→18:08)
[2018-01-31 04:00] VITALS: BP 152/85
[2018-01-31 04:57] LABS: BASOPHILS % (AUTO) 1.1 % (0.0-2.0); EOSINOPHILS % (AUTO) 1.8 % (0.0-3.0); HEMATOCRIT 39.9 % (42.0-52.0); HEMOGLOBIN 13.5 G/DL (14.2-18.0); LYMPHOCYTES % (AUTO) 11.1 % (20.0-45.0); MEAN CORPUSCULAR VOLUME 85 FL (80-99); MONOCYTES % (AUTO) 7.4 % (1.0-10.0); NEUTROPHILS % (AUTO) 78.5 % (45.0-75.0); PLATELET COUNT 309 K/UL (150-450); RED BLOOD COUNT 4.67 M/UL (4.70-6.10); RED CELL DISTRIBUTION WIDTH 14.4 % (11.6-14.8); WHITE BLOOD COUNT 5.4 K/UL (4.8-10.8)
[2018-01-31 05:58] LABS: ALANINE AMINOTRANSFERASE 27 U/L (12-78); ALBUMIN 2.5 G/DL (3.4-5.0); ALBUMIN/GLOBULIN RATIO 0.5 (1.0-2.7); ALKALINE PHOSPHATASE 213 U/L (46-116); ANION GAP 7 mmol/L (5-15); ASPARTATE AMINO TRANSFERASE 17 U/L (15-37); BILIRUBIN,TOTAL 0.4 MG/DL (0.2-1.0); BLOOD UREA NITROGEN 15 mg/dL (7-18); CALCIUM 8.6 MG/DL (8.5-10.1); CARBON DIOXIDE 24 MMOL/L (21-32); CHLORIDE 103 MMOL/L (98-107); CREATININE 1.1 MG/DL (0.55-1.30); POTASSIUM 4.6 MMOL/L (3.5-5.1); SODIUM 134 MMOL/L (136-145)
[2018-01-31 08:00] VITALS: BP 117/96
--- NOTE | 2018-01-31 09:10 | General Progress Note ---
Progress Note Progress Note AVSS Having nausea ? related to full liquid diet; also belching. Now feels okay Abdomen soft, flat, healing nicely Urien 2250 BCIR ileo 490 WBC 5400 Hgb up 13.5 BMP-wnl Albumin up 2.5 Imp. Slow improvement Plan: BCIR diet continue TPN another 24 hrs f/u labs maintain continuous drainage of Larsen Pouch Paulo Spencer MD Jan 31, 2018 09:10
[2018-01-31] MEDS ORDERED: Ascorbic Acid 500mg tab ORAL PRN (09:15)
[2018-01-31 12:00] VITALS: BP 143/89
[2018-01-31 16:01] VITALS: BP 141/87
[2018-01-31] MEDS: Xarelto 10mg tab ORAL SCH (16:28)
[2018-01-31] MEDS ORDERED: Tums 500mg ORAL SCH ×2 (17:29→17:42)
[2018-01-31] MEDS: Pantoprazole Inj IVP SCH (17:58)
[2018-01-31] MEDS ORDERED: Tums 500mg ORAL PRN ×2 (19:30)
[2018-01-31 20:00] VITALS: BP 137/89
[2018-01-31] MEDS: Dyna-Hex 2% Top Sol 2oz TOPIC SCH (20:11)
[2018-01-31] MEDS: Fat Emulsion Iv 20% 240 ML in Tpn 1,800 ML IV SCH (20:12)
[2018-02-01] VITALS: BP 131/79
[2018-02-01] MEDS: NovoLOG Insulin Flexpen SUBQ SCH ×4 (00:08→18:17)
[2018-02-01 05:12] LABS: BASOPHILS % (AUTO) 1.5 % (0.0-2.0); EOSINOPHILS % (AUTO) 1.9 % (0.0-3.0); HEMATOCRIT 39.1 % (42.0-52.0); HEMOGLOBIN 13.4 G/DL (14.2-18.0); LYMPHOCYTES % (AUTO) 12.9 % (20.0-45.0); MEAN CORPUSCULAR VOLUME 86 FL (80-99); MONOCYTES % (AUTO) 9.2 % (1.0-10.0); NEUTROPHILS % (AUTO) 74.5 % (45.0-75.0); PLATELET COUNT 331 K/UL (150-450); RED BLOOD COUNT 4.56 M/UL (4.70-6.10); RED CELL DISTRIBUTION WIDTH 14.1 % (11.6-14.8); WHITE BLOOD COUNT 5.6 K/UL (4.8-10.8)
[2018-02-01 05:13] LABS: ANION GAP 7 mmol/L (5-15); BLOOD UREA NITROGEN 16 mg/dL (7-18); CALCIUM 8.9 MG/DL (8.5-10.1); CARBON DIOXIDE 24 MMOL/L (21-32); CHLORIDE 104 MMOL/L (98-107); CREATININE 1.1 MG/DL (0.55-1.30); POTASSIUM 4.6 MMOL/L (3.5-5.1); SODIUM 135 MMOL/L (136-145)
--- NOTE | 2018-02-01 07:53 | General Progress Note ---
Progress Note Progress Note AVSS Emesis 600cc early this AM. Patient denies cramping or gas pains but very little BCIR ileostomy output. Abdomen soft, non-distended, well healed BCIR catheter flushed and when partially withdrawn obtained additional 50cc effluent Urine 2150 BCIR ileo 105 Emesis 600 Labs all satisfactory this AM Imp. Emesis ? etiology Plan; Clear liquid diet today Start BCIR self-intubations RN supervised with strict I&O If emesis recurs or very little BCIR pouch output will need CT scan abd+ pelvis with oral contrast continue TPN until tolerating BCIR diet Paulo Spencer MD Feb 01, 2018 07:53
[2018-02-01 08:00] VITALS: BP 121/81
[2018-02-01] MEDS: Pantoprazole Inj IVP SCH (08:52)
--- NOTE | 2018-02-01 09:29 | Pulmonology Progress Note ---
Assessment/Plan Assessment/Plan 1. Post op laparotomy, repair of ostomy. 2. 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 3. Status post vena cava filter. doing well, ambulating off lovenox rx Xarelto no SOB or leg pain cont present rx Subjective Constitutional: Reports: no symptoms Respiratory: Denies: dry cough, shortness of breath Allergies: Coded Allergies: PENICILLIN G (Verified Allergy, Mild, 09/07/09) Objective Last 24 Hour Vital Signs Date Time Temp Pulse Resp B/P (MAP) Pulse Ox O2 Delivery O2 Flow Rate FiO2 02/01/18 08:21 Room Air 02/01/18 08:00 98.4 69 20 121/81 (94) 98 02/01/18 00:00 99.0 73 20 131/79 (96) 97 01/31/18 21:00 Room Air 01/31/18 20:00 99.0 65 18 137/89 (105) 97 01/31/18 16:01 98.4 60 19 141/87 (105) 97 01/31/18 12:00 98.2 66 20 143/89 (107) 99 01/31/18 12:00 Intake and Output 01/31/18 02/01/18 19:00 07:00 Intake Total 1416.0 ml 1591.14 ml Output Total 875 ml 2030 ml Balance 541.0 ml -438.86 ml Intake Oral 570 ml 660 ml IV Total 846.0 ml 931.14 ml Output Urine Total 850 ml 1300 ml Emesis 650 ml Other 25 ml 80 ml # Voids 4 General Appearance: no acute distress HEENT: atraumatic Respiratory/Chest: lungs clear Cardiovascular: normal rate Extremities: no edema Laboratory Tests 02/01/18 04:38: White Blood Count 5.6, Red Blood Count 4.56L, Hemoglobin 13.4L, Hematocrit 39.1L , Mean Corpuscular Volume 86, Mean Corpuscular Hemoglobin 29.3, Mean Corpuscular Hemoglobin Concent 34.3, Red Cell Distribution Width 14.1, Platelet Count 331, Mean Platelet Volume 6.6, Neutrophils (%) (Auto) 74.5, Lymphocytes (% ) (Auto) 12.9L, Monocytes (%) (Auto) 9.2, Eosinophils (%) (Auto) 1.9, Basophils (%) (Auto) 1.5, Sodium Level 135L, Potassium Level 4.6, Chloride Level 104, Carbon Dioxide Level 24, Anion Gap 7, Blood Urea Nitrogen 16, Creatinine 1.1, Estimat Glomerular Filtration Rate > 60, Glucose Level 249H, Calcium Level 8.9 Current Medications Medications (Trade) Dose Ordered Sig/Hernan Route PRN Reason Start Time Stop Time Status Last Admin Dose Admin Acetaminophen (Tylenol) 650 mg Q4H PRN ORAL Mild Pain/Temp > 100.2 01/23/18 14:15 02/22/18 14:14 Allopurinol (Allopurinol) 300 mg DAILY ORAL 01/24/18 09:00 02/23/18 08:59 02/01/18 08:52 Ascorbic Acid (Vitamin C) 500 mg NEEDED PRN ORAL Constipation 01/31/18 09:15 03/02/18 09:14 Calcium Carbonate (Tums) 500 mg Q2H PRN ORAL HEARTBURN 01/31/18 19:30 03/02/18 19:29 Calcium Carbonate (Tums) 1,000 mg Q2H PRN ORAL SEVERE HEARTBURN 01/31/18 19:30 03/02/18 19:29 Chlorhexidine Gluconate (Lala-Hex 2%) 1 applic DAILY@2000 TOPIC 01/22/18 20:00 02/21/18 19:59 01/31/18 20:11 Dextrose 1,000 ml @ 0 mls/hr Q24H PRN IV PN interrupted or unavailable 01/25/18 09:22 02/24/18 09:21 Dextrose (Dextrose 50%) 25 ml Q30M PRN IV Hypoglycemia 01/25/18 08:30 02/24/18 08:29 Dextrose (Dextrose 50%) 50 ml Q30M PRN IV Hypoglycemia 01/25/18 08:30 02/24/18 08:29 Fat Emulsion Intravenous 240 ml/Amino Acids/ Electrolytes/ Dextrose 2,040 ml @ 84.66 mls/ hr Q24H IV 01/25/18 21:00 02/24/18 20:59 01/31/18 20:12 Folic Acid (Folate) 1 mg DAILY ORAL 01/24/18 09:00 02/23/18 08:59 02/01/18 08:52 Insulin Aspart (NovoLOG) Q6HR SUBQ 01/26/18 00:00 02/25/18 00:00 02/01/18 05:49 Lidocaine HCl (Xylocaine Jelly 2%) 1 applic Q4H PRN TOPIC For Pain 01/29/18 08:30 02/28/18 08:29 01/29/18 20:24 Lorazepam (Ativan) 1 mg HSPRN PRN SL Sleep 01/28/18 09:15 02/04/18 09:14 Lorazepam (Ativan) 1 mg Q4H PRN SL Muscle Spasm 01/28/18 09:30 02/04/18 09:29 Ondansetron HCl (Zofran ODT) 4 mg Q4H PRN ORAL Nausea & Vomiting 01/31/18 09:15 03/02/18 09:14 02/01/18 00:21 Oxycodone/ Acetaminophen (Percocet 5-325) 1 tab Q4H PRN ORAL Moderate Pain (Pain Scale 4-6) 01/29/18 08:30 02/05/18 08:29 01/30/18 22:05 Pantoprazole (Protonix) 40 mg DAILY IVP 01/31/18 17:30 03/02/18 17:29 02/01/18 08:52 Prochlorperazine (Compazine) 10 mg Q6H PRN IVP Nausea & Vomiting 01/23/18 14:15 02/22/18 14:14 01/31/18 00:13 Rivaroxaban (Xarelto) 20 mg QPM ORAL 01/30/18 16:30 03/01/18 16:29 01/31/18 16:28 Temazepam (Restoril) 7.5 mg HSPRN PRN ORAL Insomnia 01/27/18 10:15 02/03/18 10:14 02/01/18 00:12 Raul Roche MD Feb 01, 2018 09:29
[2018-02-01 12:00] VITALS: BP 122/77
[2018-02-01 16:00] VITALS: BP 148/82
[2018-02-01] MEDS: Xarelto 10mg tab ORAL SCH (16:42)
--- NOTE | 2018-02-01 17:43 | Diagnostic Imaging Report ---
Indication: Vomiting Technique: Supine view of the abdomen Comparison: Images from contrast enema dated 06/12/2017 Findings: Surgical shai are seen in the right lower quadrant and left midabdomen. Surgical clips are seen in the right upper quadrant. There is an inferior vena cava filter in the expected position. No gaseous distention of small bowel demonstrated. Note gastric distention. Symmetric triangular densities overlying the upper abdomen bilaterally most likely represent extrinsic soft tissue shadows Impression: Postsurgical changes, as described No acute process
[2018-02-01] MEDS: Dyna-Hex 2% Top Sol 2oz TOPIC SCH (20:20)
[2018-02-01] MEDS: Fat Emulsion Iv 20% 240 ML in Tpn 1,800 ML IV SCH (20:20)
[2018-02-01 20:25] VITALS: BP 126/88
[2018-02-02] VITALS: BP 117/85
[2018-02-02] MEDS: NovoLOG Insulin Flexpen SUBQ SCH ×5 (00:05→23:38)
[2018-02-02 08:00] VITALS: BP 109/80
[2018-02-02] MEDS: Pantoprazole Inj IVP SCH (09:09)
--- NOTE | 2018-02-02 10:09 | General Progress Note ---
Progress Note Progress Note Surgery: Continues to have emesis. made NPO. still with emesis. KUB ordered and looks okay. discussed with patient and states he self induces emesis when he feels bloated. states has been doing this for some time. states he feels well and in good spirits. Abdomen soft, non-distended, well healed Urine 1090 BCIR ileo 1310 Emesis 1850 Imp. Emesis ? etiology Plan: NPO; TPN BCIR self-intubations RN supervised with strict I&O CT scan abd+pelvis with oral contrast continue TPN until tolerating BCIR diet Cedrick Rosenbaum Feb 02, 2018 10:09
[2018-02-02] MEDS ORDERED: Isovue-300 100ml vial INJ PRN (10:15)
[2018-02-02] MEDS ORDERED: Gastrograffin 30ml ORAL PRN (10:15)
--- NOTE | 2018-02-02 10:37 | Pulmonology Progress Note ---
Assessment/Plan Assessment/Plan 1. Post op laparotomy, repair of ostomy. 2. 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 3. Status post vena cava filter. NPO and FU CT of AP TPN for now doing well, ambulating off lovenox, rx Xarelto no SOB or leg pain cont present rx wound care and pain control Subjective Constitutional: Reports: no symptoms HEENT: Repors: no symptoms Respiratory: Reports: no symptoms Cardiovascular: Reports: no symptoms Gastrointestinal/Abdominal: Reports: nausea, vomiting Neurologic: Reports: no symptoms Psychiatric: Reports: no symptoms Allergies: Coded Allergies: PENICILLIN G (Verified Allergy, Mild, 09/07/09) Subjective npo on tpn no pain nv ct ap pending oob on ra stable Objective Last 24 Hour Vital Signs Date Time Temp Pulse Resp B/P (MAP) Pulse Ox O2 Delivery O2 Flow Rate FiO2 02/02/18 09:39 Room Air 02/02/18 08:00 98.7 89 19 109/80 (90) 96 02/02/18 00:00 98.2 79 18 117/85 (96) 97 02/01/18 21:00 Room Air 02/01/18 20:25 98.2 72 18 126/88 (101) 100 02/01/18 16:00 98.6 72 20 148/82 (104) 96 02/01/18 12:00 98.7 86 19 122/77 (92) 96 Intake and Output 02/01/18 02/02/18 19:00 07:00 Intake Total 1855.92 ml 1081.26 ml Output Total 2120 ml Balance 1855.92 ml -1038.74 ml Intake Oral 840 ml 150 ml IV Total 1015.92 ml 931.26 ml Output Urine Total 400 ml Emesis 1300 ml Other 420 ml # Voids 3 General Appearance: WD/WN Respiratory/Chest: lungs clear, normal breath sounds Cardiovascular: normal rate, regular rhythm Abdomen: soft, non tender, no organomegaly Extremities: no cyanosis Skin: no lesions 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, alert, oriented x 3 Lymphatic: no neck adenopathy Current Medications Medications (Trade) Dose Ordered Sig/Hernan Route PRN Reason Start Time Stop Time Status Last Admin Dose Admin Acetaminophen (Tylenol) 650 mg Q4H PRN ORAL Mild Pain/Temp > 100.2 01/23/18 14:15 02/22/18 14:14 Allopurinol (Allopurinol) 300 mg DAILY ORAL 01/24/18 09:00 02/23/18 08:59 02/02/18 09:09 Ascorbic Acid (Vitamin C) 500 mg NEEDED PRN ORAL Constipation 01/31/18 09:15 03/02/18 09:14 Calcium Carbonate (Tums) 500 mg Q2H PRN ORAL HEARTBURN 01/31/18 19:30 03/02/18 19:29 Calcium Carbonate (Tums) 1,000 mg Q2H PRN ORAL SEVERE HEARTBURN 01/31/18 19:30 03/02/18 19:29 02/01/18 12:53 Chlorhexidine Gluconate (Lala-Hex 2%) 1 applic DAILY@2000 TOPIC 01/22/18 20:00 02/21/18 19:59 02/01/18 20:20 Dextrose 1,000 ml @ 0 mls/hr Q24H PRN IV PN interrupted or unavailable 01/25/18 09:22 02/24/18 09:21 Dextrose (Dextrose 50%) 25 ml Q30M PRN IV Hypoglycemia 01/25/18 08:30 02/24/18 08:29 Dextrose (Dextrose 50%) 50 ml Q30M PRN IV Hypoglycemia 01/25/18 08:30 02/24/18 08:29 Diatrizoate Meglum/ Diatrizoate Sod (Gastrografin) 30 ml NOW PRN ORAL Radiology Procedure 02/02/18 10:15 02/04/18 23:59 Fat Emulsion Intravenous 240 ml/Amino Acids/ Electrolytes/ Dextrose 2,040 ml @ 84.66 mls/ hr Q24H IV 01/25/18 21:00 02/24/18 20:59 02/01/18 20:20 Folic Acid (Folate) 1 mg DAILY ORAL 01/24/18 09:00 02/23/18 08:59 02/02/18 09:09 Insulin Aspart (NovoLOG) Q6HR SUBQ 01/26/18 00:00 02/25/18 00:00 02/02/18 05:42 Iopamidol (Isovue-300 100ml) 100 ml NOW PRN INJ Radiology Procedure 02/02/18 10:15 02/04/18 23:59 Lidocaine HCl (Xylocaine Jelly 2%) 1 applic Q4H PRN TOPIC For Pain 01/29/18 08:30 02/28/18 08:29 01/29/18 20:24 Lorazepam (Ativan) 1 mg HSPRN PRN SL Sleep 01/28/18 09:15 02/04/18 09:14 Lorazepam (Ativan) 1 mg Q4H PRN SL Muscle Spasm 01/28/18 09:30 02/04/18 09:29 Ondansetron HCl (Zofran ODT) 4 mg Q4H PRN ORAL Nausea & Vomiting 01/31/18 09:15 03/02/18 09:14 02/01/18 00:21 Oxycodone/ Acetaminophen (Percocet 5-325) 1 tab Q4H PRN ORAL Moderate Pain (Pain Scale 4-6) 01/29/18 08:30 02/05/18 08:29 01/30/18 22:05 Pantoprazole (Protonix) 40 mg DAILY IVP 01/31/18 17:30 03/02/18 17:29 02/02/18 09:09 Prochlorperazine (Compazine) 10 mg Q6H PRN IVP Nausea & Vomiting 01/23/18 14:15 02/22/18 14:14 02/02/18 00:10 Rivaroxaban (Xarelto) 20 mg QPM ORAL 01/30/18 16:30 03/01/18 16:29 02/01/18 16:42 Temazepam (Restoril) 7.5 mg HSPRN PRN ORAL Insomnia 01/27/18 10:15 02/03/18 10:14 02/01/18 00:12 Janneth Trivedi DO Feb 02, 2018 10:37
[2018-02-02 12:00] VITALS: BP 119/79
--- NOTE | 2018-02-02 13:18 | Diagnostic Imaging Report ---
EXAM: CT Abdomen and Pelvis With Intravenous Contrast CLINICAL HISTORY: ABD PAIN. Patient has had an ileostomy for years. Had a small bowel resection for a static/dilated segment 5 days ago. Now with vomiting. TECHNIQUE: Axial computed tomography images of the abdomen and pelvis with intravenous contrast. CTDI is 13.92 mGy and DLP is 846 mGy-cm. One or more of the following dose reduction techniques were used: automated exposure control, adjustment of the mA and/or kV according to patient size, use of iterative reconstruction technique. COMPARISON: Compared to a prior report of 02/22/15. Images could not be made available. FINDINGS: Mild basilar atelectasis. Redemonstrated colectomy with right lower quadrant continent ileostomy. There is a small amount of free air in the upper abdomen, which could be a normal postoperative finding, just 5 days removed from surgery. Proximal jejunal thickening suggesting enteritis. There is some free fluid in the adjacent anterior leftward abdomen, also potentially postoperative in nature. Collection measures 6.2 x 2.8 cm on series 3, image 47. Just deep to the laparotomy incision, along the inner surface of the rectus sheath, is a 3.2 x 1.6 cm gas and fluid collection. There is no leakage of enteric contrast during the scan. No small bowel transition point to indicate SBO. Subcentimeter renal hypodensities that are too small to characterize, but most likely cysts. No hydronephrosis. Aortoiliac atherosclerosis without aneurysm. IVC filter. Small fatty inguinal hernias. No acute fracture. IMPRESSION: Trace free air in the upper abdomen may be normal 5 days postop. Small leftward and anterior abdominal fluid collections may be postoperative as well. No contrast leakage from the small bowel anastomosis. Total colectomy with continent RLQ ileostomy. Jejunal wall thickening may reflect enteritis. [employer] 02/02/18 13:08 Call Doctor Regarding Bowel Perforation with Free Air, called Dr. Rosenbaum on 02/02 13:08 (-08:00)
[2018-02-02 16:25] VITALS: BP 106/83
[2018-02-02] MEDS: Xarelto 10mg tab ORAL SCH (17:11)
[2018-02-02 20:00] VITALS: BP 105/79
[2018-02-02] MEDS: Dyna-Hex 2% Top Sol 2oz TOPIC SCH (20:21)
[2018-02-02] MEDS: Fat Emulsion Iv 20% 240 ML in Tpn 1,800 ML IV SCH (21:42)
[2018-02-02 21:49] VITALS: BP 105/79
[2018-02-03 00:17] VITALS: BP 127/75
[2018-02-03 04:00] VITALS: BP 128/78
[2018-02-03] MEDS: NovoLOG Insulin Flexpen SUBQ SCH ×3 (06:10→17:03)
[2018-02-03 07:37] LABS: HEMOGLOBIN 14.1 G/DL (14.2-18.0); MEAN CORPUSCULAR VOLUME 87 FL (80-99); PLATELET COUNT 356 K/UL (150-450); RED BLOOD COUNT 4.97 M/UL (4.70-6.10); RED CELL DISTRIBUTION WIDTH 14.1 % (11.6-14.8); WHITE BLOOD COUNT 4.8 K/UL (4.8-10.8)
[2018-02-03 07:57] LABS: ALANINE AMINOTRANSFERASE 39 U/L (12-78); ALBUMIN 2.9 G/DL (3.4-5.0); ALBUMIN/GLOBULIN RATIO 0.5 (1.0-2.7); ALKALINE PHOSPHATASE 238 U/L (46-116); ANION GAP 14 mmol/L (5-15); ASPARTATE AMINO TRANSFERASE 14 U/L (15-37); BILIRUBIN,TOTAL 1.3 MG/DL (0.2-1.0); BLOOD UREA NITROGEN 42 mg/dL (7-18); CALCIUM 8.9 MG/DL (8.5-10.1); CARBON DIOXIDE 20 MMOL/L (21-32); CHLORIDE 96 MMOL/L (98-107); CREATININE 1.4 MG/DL (0.55-1.30); POTASSIUM 4.6 MMOL/L (3.5-5.1); SODIUM 130 MMOL/L (136-145)
[2018-02-03 08:06] LABS: BILIRUBIN,DIRECT 0.6 MG/DL (0.0-0.3)
[2018-02-03] MEDS ORDERED: Heplock Flush 100 units/ml 3 ml syr INJ SCH (08:30)
[2018-02-03] MEDS: Pantoprazole Inj IVP SCH (08:48)
[2018-02-03 12:00] VITALS: BP 119/82
--- NOTE | 2018-02-03 13:50 | Pulmonology Progress Note ---
Assessment/Plan Assessment/Plan 1. Post op laparotomy, repair of ostomy. 2. 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 3. Status post vena cava filter. advance diet per surgery TPN for now doing well, ambulating off lovenox, rx Xarelto no SOB or leg pain cont present rx wound care and pain control Subjective Constitutional: Reports: no symptoms HEENT: Repors: no symptoms Respiratory: Reports: no symptoms Cardiovascular: Reports: no symptoms Gastrointestinal/Abdominal: Reports: no symptoms Genitourinary: Reports: no symptoms Allergies: Coded Allergies: PENICILLIN G (Verified Allergy, Mild, 09/07/09) Subjective remains on tpn no pain nv oob on ra stable CT noted tolerating clears Objective Last 24 Hour Vital Signs Date Time Temp Pulse Resp B/P (MAP) Pulse Ox O2 Delivery O2 Flow Rate FiO2 02/03/18 12:00 99.1 96 19 119/82 (94) 100 02/03/18 09:00 Room Air 02/03/18 04:00 97.9 82 18 128/78 (95) 98 02/03/18 00:17 98.0 80 18 127/75 (92) 98 02/02/18 21:51 Room Air 02/02/18 21:49 99.2 100 19 105/79 (88) 95 02/02/18 20:00 99.2 100 19 105/79 (88) 95 02/02/18 16:25 97.5 103 18 106/83 (91) 96 Intake and Output 02/02/18 02/03/18 19:00 07:00 Intake Total 84.66 ml 1380 ml Output Total 3915 ml Balance 84.66 ml -2535 ml Intake Oral 930 ml IV Total 84.66 ml Other 450 ml Output Urine Total 870 ml Emesis 1545 ml Other 1500 ml # Voids 7 General Appearance: WD/WN Respiratory/Chest: lungs clear, normal breath sounds Cardiovascular: normal peripheral pulses, normal rate, regular rhythm Abdomen: normal bowel sounds, soft, non tender, no organomegaly Extremities: no cyanosis 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, no motor/sensory deficits, oriented x 3, responsive Musculoskeletal: normal muscle bulk Laboratory Tests 02/03/18 07:10: White Blood Count 4.8, Red Blood Count 4.97, Hemoglobin 14.1L, Hematocrit 43.0, Mean Corpuscular Volume 87, Mean Corpuscular Hemoglobin 28.4, Mean Corpuscular Hemoglobin Concent 32.8, Red Cell Distribution Width 14.1, Platelet Count 356, Mean Platelet Volume 7.1, Neutrophils (%) (Auto) , Lymphocytes (%) (Auto) , Monocytes (%) (Auto) , Eosinophils (%) (Auto) , Basophils (%) (Auto) , Differential Total Cells Counted 100, Neutrophils % (Manual) 65, Lymphocytes % ( Manual) 10L, Monocytes % (Manual) 12H, Eosinophils % (Manual) 5H, Basophils % ( Manual) 0, Band Neutrophils 8, Platelet Estimate Adequate, Platelet Morphology Normal, Anisocytosis 1+, Sodium Level 130L, Potassium Level 4.6, Chloride Level 96L, Carbon Dioxide Level 20L, Anion Gap 14, Blood Urea Nitrogen 42H, Creatinine 1.4H, Estimat Glomerular Filtration Rate 52.2, Glucose Level 264H, Calcium Level 8.9, Total Bilirubin 1.3H, Direct Bilirubin 0.6H, Aspartate Amino Transf (AST/SGOT) 14L, Alanine Aminotransferase (ALT/SGPT) 39, Alkaline Phosphatase 238H, Total Protein 8.4H, Albumin 2.9L, Globulin 5.5, Albumin/ Globulin Ratio 0.5L Current Medications Medications (Trade) Dose Ordered Sig/Hernan Route PRN Reason Start Time Stop Time Status Last Admin Dose Admin Acetaminophen (Tylenol) 650 mg Q4H PRN ORAL Mild Pain/Temp > 100.2 01/23/18 14:15 02/22/18 14:14 Allopurinol (Allopurinol) 300 mg DAILY ORAL 01/24/18 09:00 02/23/18 08:59 02/03/18 08:48 Ascorbic Acid (Vitamin C) 500 mg NEEDED PRN ORAL Constipation 01/31/18 09:15 03/02/18 09:14 Calcium Carbonate (Tums) 500 mg Q2H PRN ORAL HEARTBURN 01/31/18 19:30 03/02/18 19:29 Calcium Carbonate (Tums) 1,000 mg Q2H PRN ORAL SEVERE HEARTBURN 01/31/18 19:30 03/02/18 19:29 02/01/18 12:53 Chlorhexidine Gluconate (Lala-Hex 2%) 1 applic DAILY@1999 TOPIC 01/22/18 20:00 02/21/18 19:59 02/02/18 20:21 Dextrose 1,000 ml @ 0 mls/hr Q24H PRN IV PN interrupted or unavailable 01/25/18 09:22 02/24/18 09:21 Dextrose (Dextrose 50%) 25 ml Q30M PRN IV Hypoglycemia 01/25/18 08:30 02/24/18 08:29 Dextrose (Dextrose 50%) 50 ml Q30M PRN IV Hypoglycemia 01/25/18 08:30 02/24/18 08:29 Diatrizoate Meglum/ Diatrizoate Sod (Gastrografin) 30 ml NOW PRN ORAL Radiology Procedure 02/02/18 10:15 02/04/18 23:59 Fat Emulsion Intravenous 240 ml/Amino Acids/ Electrolytes/ Dextrose 2,040 ml @ 84.66 mls/ hr Q24H IV 01/25/18 21:00 02/24/18 20:59 02/02/18 21:42 Folic Acid (Folate) 1 mg DAILY ORAL 01/24/18 09:00 02/23/18 08:59 02/03/18 08:48 Insulin Aspart (NovoLOG) Q6HR SUBQ 01/26/18 00:00 02/25/18 00:00 02/03/18 11:19 Iopamidol (Isovue-300 100ml) 100 ml NOW PRN INJ Radiology Procedure 02/02/18 10:15 02/04/18 23:59 Lidocaine HCl (Xylocaine Jelly 2%) 1 applic Q4H PRN TOPIC For Pain 01/29/18 08:30 02/28/18 08:29 01/29/18 20:24 Lorazepam (Ativan) 1 mg HSPRN PRN SL Sleep 01/28/18 09:15 02/04/18 09:14 Lorazepam (Ativan) 1 mg Q4H PRN SL Muscle Spasm 01/28/18 09:30 02/04/18 09:29 Ondansetron HCl (Zofran ODT) 4 mg Q4H PRN ORAL Nausea & Vomiting 01/31/18 09:15 03/02/18 09:14 02/01/18 00:21 Oxycodone/ Acetaminophen (Percocet 5-325) 1 tab Q4H PRN ORAL Moderate Pain (Pain Scale 4-6) 01/29/18 08:30 02/05/18 08:29 01/30/18 22:05 Pantoprazole (Protonix) 40 mg DAILY IVP 01/31/18 17:30 03/02/18 17:29 02/03/18 08:48 Prochlorperazine (Compazine) 10 mg Q6H PRN IVP Nausea & Vomiting 01/23/18 14:15 02/22/18 14:14 02/02/18 14:16 Rivaroxaban (Xarelto) 20 mg QPM ORAL 01/30/18 16:30 03/01/18 16:29 02/02/18 17:11 Sodium Chloride 1,000 ml @ 50 mls/hr Q20H IV 02/02/18 18:30 03/04/18 18:29 02/03/18 10:56 Janneth Trivedi DO Feb 03, 2018 13:50
--- NOTE | 2018-02-03 15:53 | General Progress Note ---
Progress Note Progress Note Surgery: Had few episodes of self inducted emesis yesterday. states has not done it today CT reviewed and okay discussed with patient and states he self induces emesis when he feels bloated. states has been doing this for some time. states he feels well and in good spirits. Abdomen soft, non-distended, well healed Urine output decreased and dark BCIR ileo improved Emesis ? Imp. Emesis ? etiology self induced. labs abnormal today dehydrated Plan: BCIR diet; TPN; IV fluids BCIR self-intubations RN supervised with strict I&O Instructed that he must be in chair for meals and should not self induce emesis continue TPN until tolerating BCIR diet Cedrick Rosenbaum Feb 03, 2018 15:53
[2018-02-03 16:00] VITALS: BP 120/84
[2018-02-03] MEDS: Xarelto 10mg tab ORAL SCH (17:02)
[2018-02-03 20:00] VITALS: BP 124/83
[2018-02-03] MEDS: Dyna-Hex 2% Top Sol 2oz TOPIC SCH (20:41)
[2018-02-03] MEDS: Fat Emulsion Iv 20% 240 ML in Tpn 1,800 ML IV SCH (20:42)
[2018-02-04] VITALS: BP 121/84
[2018-02-04] MEDS: NovoLOG Insulin Flexpen SUBQ SCH ×4 (00:19→17:47)
[2018-02-04 04:00] VITALS: BP 127/80
[2018-02-04 06:14] LABS: BASOPHILS % (AUTO) 1.9 % (0.0-2.0); HEMATOCRIT 38.7 % (42.0-52.0); HEMOGLOBIN 12.7 G/DL (14.2-18.0); LYMPHOCYTES % (AUTO) 10.5 % (20.0-45.0); MEAN CORPUSCULAR VOLUME 85 FL (80-99); MONOCYTES % (AUTO) 16.6 % (1.0-10.0); PLATELET COUNT 301 K/UL (150-450); RED BLOOD COUNT 4.53 M/UL (4.70-6.10); RED CELL DISTRIBUTION WIDTH 13.6 % (11.6-14.8); WHITE BLOOD COUNT 3.8 K/UL (4.8-10.8)
[2018-02-04 06:19] LABS: ANION GAP 9 mmol/L (5-15); BLOOD UREA NITROGEN 26 mg/dL (7-18); CALCIUM 8.5 MG/DL (8.5-10.1); CARBON DIOXIDE 24 MMOL/L (21-32); CHLORIDE 100 MMOL/L (98-107); CREATININE 1.1 MG/DL (0.55-1.30); POTASSIUM 4.4 MMOL/L (3.5-5.1); SODIUM 133 MMOL/L (136-145)
[2018-02-04 08:00] VITALS: BP 115/75
--- NOTE | 2018-02-04 08:19 | General Progress Note ---
Progress Note Progress Note AVSS Repeatedly induced vomiting past 48 hours due to feeling of bloating, heartburn, gas pressure. Since 02/02 1800 he has not had any emesis. Took nearly 3000 cc po fluids yesterday but not eating much of BCIR diet Abdomen soft, flat, non-tender Urine 1700 BCIR ileo 2350 WBC 3800 Hgb 12.7 BUN down 26 Cr 1.1 (was 1.4) CT scan without acute findings Imp. Repeated emesis, resolved Dehydration, resolved Plan; Continue TPN Stool for C.diff toxin BCIR diet as tolerated with strict I&O f/u labs Paulo Spencer MD Feb 04, 2018 08:19
--- NOTE | 2018-02-04 08:59 | Pulmonology Progress Note ---
Assessment/Plan Assessment/Plan 1. Post op laparotomy, repair of ostomy. 2. 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 3. Status post vena cava filter. advance diet per surgery TPN for now doing well, ambulating off lovenox, rx Xarelto no SOB or leg pain cont present rx wound care and pain control will see less often Subjective Constitutional: Reports: no symptoms Respiratory: Denies: shortness of breath, pleuritic pain Gastrointestinal/Abdominal: Denies: nausea Allergies: Coded Allergies: PENICILLIN G (Verified Allergy, Mild, 09/07/09) Objective Last 24 Hour Vital Signs Date Time Temp Pulse Resp B/P (MAP) Pulse Ox O2 Delivery O2 Flow Rate FiO2 02/04/18 08:00 98.1 76 22 115/75 (88) 100 02/04/18 04:00 98.6 95 17 127/80 (96) 99 02/04/18 00:00 98.9 95 18 121/84 (96) 99 02/03/18 21:00 Room Air 02/03/18 20:00 98.9 96 17 124/83 (97) 100 02/03/18 16:00 99.5 94 16 120/84 (96) 100 02/03/18 12:00 99.1 96 19 119/82 (94) 100 02/03/18 09:00 Room Air Intake and Output 02/03/18 02/04/18 18:59 06:59 Intake Total 3169.26 ml 2496.60 ml Output Total 2200 ml 1850 ml Balance 969.26 ml 646.60 ml Intake Oral 1688 ml 1100 ml IV Total 1481.26 ml 1396.60 ml Output Urine Total 800 ml 900 ml Other 1400 ml 950 ml # Voids 4 3 General Appearance: no acute distress Respiratory/Chest: lungs clear Cardiovascular: normal rate Extremities: no edema Laboratory Tests 02/04/18 05:56: White Blood Count 3.8L, Red Blood Count 4.53L, Hemoglobin 12.7L, Hematocrit 38.7L, Mean Corpuscular Volume 85, Mean Corpuscular Hemoglobin 28.1, Mean Corpuscular Hemoglobin Concent 32.9, Red Cell Distribution Width 13.6, Platelet Count 301, Mean Platelet Volume 7.7, Neutrophils (%) (Auto) 66.0, Lymphocytes (% ) (Auto) 10.5L, Monocytes (%) (Auto) 16.6H, Eosinophils (%) (Auto) 5.0H, Basophils (%) (Auto) 1.9, Sodium Level 133L, Potassium Level 4.4, Chloride Level 100, Carbon Dioxide Level 24, Anion Gap 9, Blood Urea Nitrogen 26H, Creatinine 1.1, Estimat Glomerular Filtration Rate > 60, Glucose Level 247H, Calcium Level 8.5 Current Medications Medications (Trade) Dose Ordered Sig/Hernan Route PRN Reason Start Time Stop Time Status Last Admin Dose Admin Acetaminophen (Tylenol) 650 mg Q4H PRN ORAL Mild Pain/Temp > 100.2 01/23/18 14:15 02/22/18 14:14 Allopurinol (Allopurinol) 300 mg DAILY ORAL 01/24/18 09:00 02/23/18 08:59 02/03/18 08:48 Ascorbic Acid (Vitamin C) 500 mg NEEDED PRN ORAL Constipation 01/31/18 09:15 03/02/18 09:14 Calcium Carbonate (Tums) 500 mg Q2H PRN ORAL HEARTBURN 01/31/18 19:30 03/02/18 19:29 02/03/18 18:30 Calcium Carbonate (Tums) 1,000 mg Q2H PRN ORAL SEVERE HEARTBURN 01/31/18 19:30 03/02/18 19:29 02/01/18 12:53 Chlorhexidine Gluconate (Lala-Hex 2%) 1 applic DAILY@2000 TOPIC 01/22/18 20:00 02/21/18 19:59 02/03/18 20:41 Dextrose 1,000 ml @ 0 mls/hr Q24H PRN IV PN interrupted or unavailable 01/25/18 09:22 02/24/18 09:21 Dextrose (Dextrose 50%) 25 ml Q30M PRN IV Hypoglycemia 01/25/18 08:30 02/24/18 08:29 Dextrose (Dextrose 50%) 50 ml Q30M PRN IV Hypoglycemia 01/25/18 08:30 02/24/18 08:29 Diatrizoate Meglum/ Diatrizoate Sod (Gastrografin) 30 ml NOW PRN ORAL Radiology Procedure 02/02/18 10:15 02/04/18 23:59 Fat Emulsion Intravenous 240 ml/Amino Acids/ Electrolytes/ Dextrose 2,040 ml @ 84.66 mls/ hr Q24H IV 01/25/18 21:00 02/24/18 20:59 02/03/18 20:42 Folic Acid (Folate) 1 mg DAILY ORAL 01/24/18 09:00 02/23/18 08:59 02/03/18 08:48 Insulin Aspart (NovoLOG) Q6HR SUBQ 01/26/18 00:00 02/25/18 00:00 02/04/18 06:08 Iopamidol (Isovue-300 100ml) 100 ml NOW PRN INJ Radiology Procedure 02/02/18 10:15 02/04/18 23:59 Lidocaine HCl (Xylocaine Jelly 2%) 1 applic Q4H PRN TOPIC For Pain 01/29/18 08:30 02/28/18 08:29 01/29/18 20:24 Lorazepam (Ativan) 1 mg HSPRN PRN SL Sleep 01/28/18 09:15 02/04/18 09:14 Lorazepam (Ativan) 1 mg Q4H PRN SL Muscle Spasm 01/28/18 09:30 02/04/18 09:29 Ondansetron HCl (Zofran ODT) 4 mg Q4H PRN ORAL Nausea & Vomiting 01/31/18 09:15 03/02/18 09:14 02/01/18 00:21 Oxycodone/ Acetaminophen (Percocet 5-325) 1 tab Q4H PRN ORAL Moderate Pain (Pain Scale 4-6) 01/29/18 08:30 02/05/18 08:29 01/30/18 22:05 Pantoprazole (Protonix) 40 mg DAILY IVP 01/31/18 17:30 03/02/18 17:29 02/03/18 08:48 Prochlorperazine (Compazine) 10 mg Q6H PRN IVP Nausea & Vomiting 01/23/18 14:15 02/22/18 14:14 02/02/18 14:16 Rivaroxaban (Xarelto) 20 mg QPM ORAL 01/30/18 16:30 03/01/18 16:29 02/03/18 17:02 Raul Roche MD Feb 04, 2018 08:59
[2018-02-04] MEDS: Pantoprazole Inj IVP SCH (09:03)
[2018-02-04 12:00] VITALS: BP 114/75
[2018-02-04 16:00] VITALS: BP 112/73
[2018-02-04] MEDS: Xarelto 10mg tab ORAL SCH (16:54)
--- NOTE | 2018-02-04 17:15 | General Progress Note ---
Progress Note Progress Note having excessing ileostomy effluent with odor now. CT revealed some mild dilatation and thickening of the proximal small bowel C. diff toxin is pending Imp: Bacterial overgrowth enteritis/pouchitis Plan: cipro 500mg po q12h flagyl 250mg po TID Paulo Spencer MD Feb 04, 2018 17:15
[2018-02-04] MEDS: metroNIDAZOLE 250mg tab ORAL SCH ×2 (17:24→21:02)
[2018-02-04 20:00] VITALS: BP 126/79
[2018-02-04] MEDS: Dyna-Hex 2% Top Sol 2oz TOPIC SCH (20:01)
[2018-02-04] MEDS: Ciprofloxacin 500mg tab ORAL SCH (21:02)
[2018-02-04] MEDS: Fat Emulsion Iv 20% 240 ML in Tpn 1,800 ML IV SCH (21:03)
[2018-02-05] VITALS: BP 95/56
[2018-02-05] MEDS: NovoLOG Insulin Flexpen SUBQ SCH ×4 (00:04→18:17)
[2018-02-05 04:00] VITALS: BP 101/71
[2018-02-05] MEDS: metroNIDAZOLE 250mg tab ORAL SCH (05:29)
[2018-02-05 06:03] LABS: BASOPHILS % (AUTO) 2.5 % (0.0-2.0); EOSINOPHILS % (AUTO) 4.3 % (0.0-3.0); HEMATOCRIT 37.6 % (42.0-52.0); HEMOGLOBIN 13.1 G/DL (14.2-18.0); LYMPHOCYTES % (AUTO) 18.6 % (20.0-45.0); MEAN CORPUSCULAR VOLUME 86 FL (80-99); MONOCYTES % (AUTO) 13.7 % (1.0-10.0); NEUTROPHILS % (AUTO) 60.9 % (45.0-75.0); PLATELET COUNT 302 K/UL (150-450); RED BLOOD COUNT 4.34 M/UL (4.70-6.10); RED CELL DISTRIBUTION WIDTH 13.8 % (11.6-14.8); WHITE BLOOD COUNT 3.8 K/UL (4.8-10.8)
[2018-02-05 06:29] LABS: ALANINE AMINOTRANSFERASE 37 U/L (12-78); ALBUMIN 2.6 G/DL (3.4-5.0); ALBUMIN/GLOBULIN RATIO 0.6 (1.0-2.7); ALKALINE PHOSPHATASE 224 U/L (46-116); ANION GAP 8 mmol/L (5-15); ASPARTATE AMINO TRANSFERASE 14 U/L (15-37); BILIRUBIN,TOTAL 0.4 MG/DL (0.2-1.0); BLOOD UREA NITROGEN 24 mg/dL (7-18); CALCIUM 8.3 MG/DL (8.5-10.1); CARBON DIOXIDE 25 MMOL/L (21-32); CHLORIDE 100 MMOL/L (98-107); CREATININE 1.1 MG/DL (0.55-1.30); PHOSPHORUS 2.9 MG/DL (2.5-4.9); POTASSIUM 4.1 MMOL/L (3.5-5.1); SODIUM 133 MMOL/L (136-145)
[2018-02-05 08:00] VITALS: BP 124/77
[2018-02-05] MEDS ORDERED: oxyCODONE HCL/Acetaminophen 5/325mg ORAL PRN (08:30)
--- NOTE | 2018-02-05 08:31 | General Progress Note ---
Progress Note Progress Note AVSS Less cramping and this AM his Larsen pouch output is thicker with odor resolved Starting to eat better Abdomen soft, flat, non-tender C. diff toxin - negative WBC 3800 Hgb 13.1 Albumin 2.6 Urine 1400 less concentrated BCIR ileo 2300 (excessive) Imp: Bacterial overgrowth enteritis, improving stomach upset due to Flagyl Plan; Change Flagyl to Cleocin 300mg po TID Continue Cipro po Continue TPN (bowel wall edema, low albumin, not eating well yet) Paulo Spencer MD Feb 05, 2018 08:31
[2018-02-05] MEDS ORDERED: Fluconazole 100mg tab ORAL SCH (09:00)
[2018-02-05] MEDS: Ciprofloxacin 500mg tab ORAL SCH ×2 (09:35→20:38)
[2018-02-05] MEDS: Pantoprazole Inj IVP SCH (09:35)
[2018-02-05] MEDS: Clindamycin 150mg cap ORAL SCH ×3 (09:52→20:56)
[2018-02-05 12:00] VITALS: BP 112/77
[2018-02-05 16:00] VITALS: BP 116/83
[2018-02-05] MEDS: Xarelto 10mg tab ORAL SCH (17:48)
[2018-02-05 20:14] VITALS: BP 118/82
[2018-02-05] MEDS: Dyna-Hex 2% Top Sol 2oz TOPIC SCH (20:35)
[2018-02-05] MEDS: Fat Emulsion Iv 20% 240 ML in Tpn 1,800 ML IV SCH (20:36)
[2018-02-06] MEDS: NovoLOG Insulin Flexpen SUBQ SCH ×4 (00:08→17:46)
[2018-02-06 00:14] VITALS: BP 126/76
[2018-02-06 05:34] LABS: BASOPHILS % (AUTO) 2.7 % (0.0-2.0); EOSINOPHILS % (AUTO) 4.8 % (0.0-3.0); HEMATOCRIT 36.8 % (42.0-52.0); HEMOGLOBIN 12.5 G/DL (14.2-18.0); LYMPHOCYTES % (AUTO) 21.4 % (20.0-45.0); MEAN CORPUSCULAR VOLUME 86 FL (80-99); MONOCYTES % (AUTO) 9.3 % (1.0-10.0); NEUTROPHILS % (AUTO) 61.8 % (45.0-75.0); PLATELET COUNT 284 K/UL (150-450); RED BLOOD COUNT 4.29 M/UL (4.70-6.10); RED CELL DISTRIBUTION WIDTH 13.6 % (11.6-14.8); WHITE BLOOD COUNT 4.2 K/UL (4.8-10.8)
[2018-02-06 05:52] LABS: ANION GAP 9 mmol/L (5-15); BLOOD UREA NITROGEN 21 mg/dL (7-18); CALCIUM 8.2 MG/DL (8.5-10.1); CARBON DIOXIDE 24 MMOL/L (21-32); CHLORIDE 102 MMOL/L (98-107); CREATININE 1.1 MG/DL (0.55-1.30); POTASSIUM 4.3 MMOL/L (3.5-5.1); SODIUM 135 MMOL/L (136-145)
[2018-02-06] MEDS: Clindamycin 150mg cap ORAL SCH ×3 (06:05→21:04)
[2018-02-06 08:00] VITALS: BP 112/75
[2018-02-06] MEDS: Ciprofloxacin 500mg tab ORAL SCH ×2 (08:51→21:04)
[2018-02-06] MEDS: Pantoprazole Inj IVP SCH (08:51)
--- NOTE | 2018-02-06 11:18 | Pulmonology Progress Note ---
Assessment/Plan Assessment/Plan 1. Post op laparotomy, repair of ostomy. 2. 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 3. Status post vena cava filter. advance diet per surgery TPN doing well, ambulating continue Xarelto no SOB or leg pain wound care and pain control anticipate dc soon please call if needed Subjective Constitutional: Reports: no symptoms Respiratory: Denies: dry cough, shortness of breath Cardiovascular: Denies: chest pain Allergies: Coded Allergies: PENICILLIN G (Verified Allergy, Mild, 09/07/09) Objective Last 24 Hour Vital Signs Date Time Temp Pulse Resp B/P (MAP) Pulse Ox O2 Delivery O2 Flow Rate FiO2 02/06/18 08:11 Room Air 02/06/18 08:00 99.0 68 18 112/75 (87) 98 02/06/18 00:14 98.6 84 16 126/76 (93) 97 02/05/18 21:00 Room Air 02/05/18 20:14 98.8 91 17 118/82 (94) 98 02/05/18 16:00 98.9 85 18 116/83 (94) 98 02/05/18 12:00 97.7 65 17 112/77 (89) 96 Intake and Output 02/05/18 02/06/18 18:59 06:59 Intake Total 1274.66 ml 2095.92 ml Output Total 2215 ml 1575 ml Balance -940.34 ml 520.92 ml Intake Oral 1190 ml 1080 ml IV Total 84.66 ml 1015.92 ml Output Urine Total 925 ml 975 ml Other 1290 ml 600 ml # Voids 4 General Appearance: no acute distress HEENT: atraumatic Respiratory/Chest: lungs clear Cardiovascular: normal rate Extremities: no edema Microbiology Date/Time Source Procedure Growth Status 02/04/18 09:00 Stool Clostridium difficile Toxin Assay - Final Complete Laboratory Tests 02/06/18 04:50: White Blood Count 4.2L, Red Blood Count 4.29L, Hemoglobin 12.5L, Hematocrit 36.8L, Mean Corpuscular Volume 86, Mean Corpuscular Hemoglobin 29.2, Mean Corpuscular Hemoglobin Concent 34.1, Red Cell Distribution Width 13.6, Platelet Count 284, Mean Platelet Volume 7.8, Neutrophils (%) (Auto) 61.8, Lymphocytes (% ) (Auto) 21.4, Monocytes (%) (Auto) 9.3, Eosinophils (%) (Auto) 4.8H, Basophils (%) (Auto) 2.7H, Sodium Level 135L, Potassium Level 4.3, Chloride Level 102, Carbon Dioxide Level 24, Anion Gap 9, Blood Urea Nitrogen 21H, Creatinine 1.1, Estimat Glomerular Filtration Rate > 60, Glucose Level 221H, Calcium Level 8.2L Current Medications Medications (Trade) Dose Ordered Sig/Hernan Route PRN Reason Start Time Stop Time Status Last Admin Dose Admin Acetaminophen (Tylenol) 650 mg Q4H PRN ORAL Mild Pain/Temp > 100.2 01/23/18 14:15 02/22/18 14:14 Allopurinol (Allopurinol) 300 mg DAILY ORAL 01/24/18 09:00 02/23/18 08:59 02/06/18 08:50 Ascorbic Acid (Vitamin C) 500 mg NEEDED PRN ORAL Constipation 01/31/18 09:15 03/02/18 09:14 Calcium Carbonate (Tums) 500 mg Q2H PRN ORAL HEARTBURN 01/31/18 19:30 03/02/18 19:29 02/03/18 18:30 Calcium Carbonate (Tums) 1,000 mg Q2H PRN ORAL SEVERE HEARTBURN 01/31/18 19:30 03/02/18 19:29 02/01/18 12:53 Chlorhexidine Gluconate (Lala-Hex 2%) 1 applic DAILY@2000 TOPIC 01/22/18 20:00 02/21/18 19:59 02/05/18 20:35 Ciprofloxacin (Cipro 500mg tab) 500 mg EVERY 12 HOURS ORAL 02/04/18 21:00 02/11/18 20:59 02/06/18 08:51 Clindamycin HCl (Cleocin) 300 mg Q8HR ORAL 02/05/18 09:00 02/12/18 08:59 02/06/18 06:05 Dextrose 1,000 ml @ 0 mls/hr Q24H PRN IV PN interrupted or unavailable 01/25/18 09:22 02/24/18 09:21 Dextrose (Dextrose 50%) 25 ml Q30M PRN IV Hypoglycemia 01/25/18 08:30 02/24/18 08:29 Dextrose (Dextrose 50%) 50 ml Q30M PRN IV Hypoglycemia 01/25/18 08:30 02/24/18 08:29 Fat Emulsion Intravenous 240 ml/Amino Acids/ Electrolytes/ Dextrose 2,040 ml @ 84.66 mls/ hr Q24H IV 01/25/18 21:00 02/24/18 20:59 02/05/18 20:36 Folic Acid (Folate) 1 mg DAILY ORAL 01/24/18 09:00 02/23/18 08:59 02/06/18 08:51 Insulin Aspart (NovoLOG) Q6HR SUBQ 01/26/18 00:00 02/25/18 00:00 02/06/18 06:06 Lidocaine HCl (Xylocaine Jelly 2%) 1 applic Q4H PRN TOPIC For Pain 01/29/18 08:30 02/28/18 08:29 01/29/18 20:24 Ondansetron HCl (Zofran ODT) 4 mg Q4H PRN ORAL Nausea & Vomiting 01/31/18 09:15 03/02/18 09:14 02/01/18 00:21 Oxycodone/ Acetaminophen (Percocet 5-325) 1 tab Q4H PRN ORAL Moderate Pain (Pain Scale 4-6) 02/05/18 08:30 02/12/18 08:29 Pantoprazole (Protonix) 40 mg DAILY IVP 01/31/18 17:30 03/02/18 17:29 02/06/18 08:51 Prochlorperazine (Compazine) 10 mg Q6H PRN IVP Nausea & Vomiting 01/23/18 14:15 02/22/18 14:14 02/02/18 14:16 Rivaroxaban (Xarelto) 20 mg QPM ORAL 01/30/18 16:30 03/01/18 16:29 02/05/18 17:48 Raul Roche MD Feb 06, 2018 11:18
[2018-02-06 12:00] VITALS: BP 119/79
[2018-02-06] MEDS ORDERED: Tums 500mg ORAL PRN (12:21)
--- NOTE | 2018-02-06 12:24 | General Progress Note ---
Progress Note Progress Note AVSS Feeling better and eating better with no nausea or GI distress ABdomen soft Urine 1900 BCIR ileo 1890 (po intake 2270) WBC up 4200 Hgb 12.5 BUN 21 Cr 1.1 Imp. Improved Plan; D/C TPN after current supply finished Continue Cipro and Flagyl po continue strict I&O if stable with d/c PICC in AM Paulo Spencer MD Feb 06, 2018 12:24
[2018-02-06 16:00] VITALS: BP 118/77
[2018-02-06] MEDS: Xarelto 10mg tab ORAL SCH (16:26)
[2018-02-06 20:00] VITALS: BP 120/79
[2018-02-06] MEDS: Dyna-Hex 2% Top Sol 2oz TOPIC SCH (21:04)
[2018-02-07] VITALS: BP 119/79
[2018-02-07] MEDS: Clindamycin 150mg cap ORAL SCH ×3 (06:06→21:06)
[2018-02-07 06:26] LABS: BASOPHILS % (AUTO) 1.9 % (0.0-2.0); EOSINOPHILS % (AUTO) 4.5 % (0.0-3.0); HEMATOCRIT 37.6 % (42.0-52.0); HEMOGLOBIN 12.6 G/DL (14.2-18.0); LYMPHOCYTES % (AUTO) 26.5 % (20.0-45.0); MEAN CORPUSCULAR VOLUME 87 FL (80-99); MONOCYTES % (AUTO) 9.3 % (1.0-10.0); NEUTROPHILS % (AUTO) 57.9 % (45.0-75.0); PLATELET COUNT 301 K/UL (150-450); RED BLOOD COUNT 4.33 M/UL (4.70-6.10); RED CELL DISTRIBUTION WIDTH 13.7 % (11.6-14.8); WHITE BLOOD COUNT 4.7 K/UL (4.8-10.8)
[2018-02-07 06:35] LABS: ANION GAP 8 mmol/L (5-15); BLOOD UREA NITROGEN 21 mg/dL (7-18); CALCIUM 8.6 MG/DL (8.5-10.1); CARBON DIOXIDE 23 MMOL/L (21-32); CHLORIDE 105 MMOL/L (98-107); CREATININE 1.2 MG/DL (0.55-1.30); POTASSIUM 4.9 MMOL/L (3.5-5.1); SODIUM 136 MMOL/L (136-145)
[2018-02-07 08:00] VITALS: BP 119/79
[2018-02-07] MEDS: Ciprofloxacin 500mg tab ORAL SCH ×2 (09:07→21:06)
--- NOTE | 2018-02-07 09:16 | General Progress Note ---
Progress Note Progress Note AVSS Eating well and self-intubating the Larsen continent ileostomy pouch without difficulty ABdomen soft, well healed Urine 1525 BCIR ileo 1850 WBC up 4700 BUN 21 Cr up 1.2 Imp. Slight dehydration and high ileostomy output despite cipro and flagyl Plan: IV fluids today f/u labs Paulo Spencer MD Feb 07, 2018 09:16
[2018-02-07] MEDS: D5 1/2NS 1,000 ML IV SCH ×2 (10:35→20:00)
[2018-02-07 12:00] VITALS: BP 115/74
[2018-02-07 16:00] VITALS: BP 114/78
[2018-02-07] MEDS: Xarelto 10mg tab ORAL SCH (16:34)
[2018-02-07 20:00] VITALS: BP 112/82
[2018-02-07] MEDS: Dyna-Hex 2% Top Sol 2oz TOPIC SCH (20:00)
[2018-02-08 04:00] VITALS: BP 114/79
[2018-02-08 05:04] LABS: BASOPHILS % (AUTO) 2.1 % (0.0-2.0); EOSINOPHILS % (AUTO) 4.3 % (0.0-3.0); HEMATOCRIT 39.3 % (42.0-52.0); LYMPHOCYTES % (AUTO) 21.7 % (20.0-45.0); MEAN CORPUSCULAR VOLUME 87 FL (80-99); MONOCYTES % (AUTO) 9.4 % (1.0-10.0); NEUTROPHILS % (AUTO) 62.5 % (45.0-75.0); PLATELET COUNT 313 K/UL (150-450); RED BLOOD COUNT 4.52 M/UL (4.70-6.10); RED CELL DISTRIBUTION WIDTH 14.2 % (11.6-14.8); WHITE BLOOD COUNT 5.2 K/UL (4.8-10.8)
[2018-02-08 05:19] LABS: ANION GAP 5 mmol/L (5-15); BLOOD UREA NITROGEN 17 mg/dL (7-18); CALCIUM 8.8 MG/DL (8.5-10.1); CARBON DIOXIDE 26 MMOL/L (21-32); CHLORIDE 106 MMOL/L (98-107); CREATININE 1.3 MG/DL (0.55-1.30); POTASSIUM 4.9 MMOL/L (3.5-5.1); SODIUM 137 MMOL/L (136-145)
[2018-02-08] MEDS: Clindamycin 150mg cap ORAL SCH ×2 (05:59→11:06)
[2018-02-08 08:00] VITALS: BP 114/79
[2018-02-08] MEDS: Ciprofloxacin 500mg tab ORAL SCH (08:32)
--- NOTE | 2018-02-08 08:57 | General Progress Note ---
Progress Note Progress Note Doing well and tolerating BCIR diet and BCIR self-intubations Abdomen soft po 2216 fluids Urine 1300 BCIR ileo 1750 WBC now normal 5200Hgb 13 BUN 17 Cr 1.3 Imp. Stable for discharge Plan: discharge full supplies/limitations/instructions provided/discussed f/u office 02/12 - call prn d/c cipro and cleocin today Paulo Spencer MD Feb 08, 2018 08:57
[2018-02-08] MEDS ORDERED: OXYCODONE-ACET1 EAC3 ORAL (10:04)
[2018-02-08] MEDS ORDERED: Tubing IV Secondary IV ONE (11:54)
[2018-02-08] MEDS ORDERED: NS Irrig 1000ml ONE ×2 (11:54)
--- NOTE | 2018-02-10 10:10 | Discharge Summary ---
Discharge Summary Hospital Course Date of Admission Jan 22, 2018 at 09:16 Date of Discharge Feb 08, 2018 at 11:55 Admitting Diagnosis Malfunctioning Larsen continent ileostomy Reason for Hospitalization: elective surgery HPI Asad Hardy is a 57 year old male who was admitted on Jan 22, 2018 at 09:16 for Malfunctioning Of Larsen Continent Ileostomy. Patient was admitted for elective surgery Consultations dr Roche - MARIA DOLORES/pulmo Procedures s/p 01/[address] Spencer Laparotomy with resection of partially obstructing closed-loop, mid small bowel , left upper quadrant, and dilatation of Larsen continent ileostomy access segment. Hospital Course FINAL DIAGNOSES 1. 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 2. Malfunctioning Larsen continent intestinal reservoir with difficulty with intubation. 3. Severe diffuse adhesions. 4. Hypercoagulable state with Factor S deficiency. 5. History of ulcerative colitis. 6. Status post multiple abdominal operations. 6.1. Total colectomy with ileoanal J-pouch performed in [place] in August 2004 6.2. Resection of infarcted J-pouch and creation of Barbara ileostomy in [place] in August 2004. 6.3. Creation of Larsen continent intestinal reservoir type of continent ileostomy in 2005. 6.4. Repair of ventral incisional hernia, parastomal hernia, and left inguinal hernia in October 2007. 6.5. Laparotomy with extensive lysis of adhesions and complex revision of Larsen continent ileostomy with enteroenterostomy and revision of the stoma in depth and revision of the valve, and repair of right inguinal hernia in 2009. 6.6. Laparotomy with extensive 2 hour plus lysis of adhesions and enteroenterostomy on 07/04/2017. 7. s/p Laparotomy with resection of partially obstructing closed-loop, mid small bowel, left upper quadrant, and dilatation of Larsen continent ileostomy access segment. Discharge Medications Continued Medications: Oxycodone Hcl/Acetaminophen 5-325* (Oxycodone-Acetaminophen 5-325*) 1 Each Tablet 1 TAB ORAL Q4H PRN for For Pain, #40 TAB 0 Refills (This prescription has been renewed) Discharge Condition Upon Discharge: stable Discharge Disposition Patient was discharged to Home () Discharge Instructions Discharge Instructions Special Instructions I have been assigned to complete a D/C Summary on this account. I was not involved in the patient management Jacqui Zafar NP 25, 2018 10:10
== END 2018-02-08 11:55 | disposition home or self-care (01) | DRG 330 ==
LOC: 3E 09:16
PROC: B518ZZA Fluoroscopy of Superior Vena Cava, Guidance (ICD-10-PCS; principal; 2018-01-22)
PROC: 02HV33Z Insertion of Infusion Device into Superior Vena Cava, Percutaneous Approach (ICD-10-PCS; principal; 2018-01-22)
PROC: 0DT80ZZ Resection of Small Intestine, Open Approach (ICD-10-PCS; 2018-01-23)
PROC: 0DN80ZZ Release Small Intestine, Open Approach (ICD-10-PCS; 2018-01-23)
DX: K56.51 Intestinal adhesions [bands], with partial obstruction (principal); K94.13 Enterostomy malfunction; D68.59 Other primary thrombophilia; K51.90 Ulcerative colitis, unspecified, without complications; J98.11 Atelectasis; Z86.718 Personal history of other venous thrombosis and embolism; Z86.711 Personal history of pulmonary embolism; K56.7 Ileus, unspecified; E86.0 Dehydration
CPT/HCPCS: 36415; 36569; 71045; 74018; 74177; 76937; 80048; 80053; 81003; 82248; 82607; 82728; 82746; 82962; 83540; 83550; 83735; 84100; 84165; 84550; 85007; 85025; 85610; 85730; 86850; 86900; 86901; 87324; 93005; 93970; 94003; 94150; J1815; J2405; J2765